=== PATIENT | female | born 1975 | race Two or more races ===

== ENCOUNTER 2017-05-10 14:42 | Emergency (ER) | payer SELFPAY ==
[~2017-05-10] VITALS: Ht 165.1 cm; Wt 111.1 kg
[2017-05-10] MEDS ORDERED: SODIUM CHLORIDE 0.9% 1,000 ML IV ONE (14:57)
[2017-05-10] MEDS ORDERED: HYDROcodone-ACET 7.5/325MG TAB PO ONE (15:15)
[2017-05-10 15:21] LABS: Basophils # (auto) 0.1 uL; Basophils % (auto) 0.8 % (0.0-2.0); CONDITION Y; Eosinophils # (auto) 0.2 uL; Eosinophils % (auto) 2.9 % (0.0-7.0); Hematocrit 44.6 % (36.0-46.0); Hemoglobin 15.2 g/dL (12.2-16.2); Lymphocytes # (auto) 2.2 uL; Lymphocytes % (auto) 27.7 % (10.0-50.0); Mean Corpuscular Hemoglobin 29.9 pg (28.0-32.0); Mean Corpuscular Hgb Conc. 34.1 g/dL (32.0-36.0); Mean Corpuscular Volume 87.7 fL (80.0-100.0); Mean Platelet Volume 7.9 fL (7.4-10.4); Monocytes # (auto) 0.5 uL; Monocytes % (auto) 6.3 % (0.0-12.0); Neutrophils # (auto) 4.9 uL; Neutrophils % (auto) 62.3 % (37.0-80.0); Platelet Count (auto) 333 10^3/uL (140-450); Red Cell Distribution Width 13.4 % (11.6-16.0); White Blood Cell 7.8 10^3/uL (4.4-10.8)
[2017-05-10 15:45] LABS: Albumin 3.5 g/dL (3.4-5.0); Alkaline Phosphatase 145 U/L (45-117); Amylase 83 U/L (25-115); Anion Gap 9 (5-15); Aspartate Aminotransferase 32 U/L (15-37); Bilirubin, Total 0.5 mg/dL (0.2-1.0); Blood Urea Nitrogen 13 mg/dL (7-18); Calcium 8.7 mg/dL (8.5-10.1); Carbon Dioxide 27 mmol/L (21-32); Chloride 99 mmol/L (98-107); GFR African American 101 mL/min; GFR Non-African American 83 mL/min; Glucose 217 mg/dL (74-106); Potassium 4.3 mmol/L (3.5-5.1); Sodium 135 mmol/L (136-145); Total Protein 8.4 g/dL (6.4-8.2)
[2017-05-10 17:45] VITALS: BP 104/49
== END 2017-05-10 17:57 | disposition home or self-care (01) ==
LOC: ER 14:46
DX: R10.9 Unspecified abdominal pain (principal); M79.1 Myalgia; E11.9 Type 2 diabetes mellitus without complications; Z98.51 Tubal ligation status; W01.0XXA Fall on same level from slipping, tripping and stumbling without subsequent striking against object, initial encounter; Y93.89 Activity, other specified; Y99.8 Other external cause status; Y92.89 Other specified places as the place of occurrence of the external cause
CPT/HCPCS: 36415; 71101; 80053; 82150; 83690; 84484; 85025; 96360; 96361; 99285; J7030

== ENCOUNTER 2024-10-27 12:09 | Emergency (ER) | payer MEDICAID, OTHER ==
[~2024-10-27] VITALS: Ht 165.1 cm; Wt 93.5 kg
[2024-10-27 13:09] VITALS: BP 126/82; PULSE 109; RESP 18; TEMP 98.5
--- NOTE | 2024-10-27 13:22 | DVH ---
CHEST RADIOGRAPH Indication: COUGH Technique: Frontal and lateral view of the chest was obtained Comparison: None FINDINGS: Lines and Tubes: None Lungs: Diffuse increased interstitial prominence Pleura: No effusion. No pneumothorax. Cardiomediastinal contours: Unremarkable Bones: Unremarkable IMPRESSION: Pulmonary vascular congestion versus viral pneumonitis.
--- NOTE | 2024-10-27 13:34 | ED.PDOC ---
SOB-HPI HPI Comments A 49 YEAR OLD FEMALE PRESENTS TO THE ED WITH COMPLAINT OF COUGH X5DAYS WITH INTERMITTENT FEVER, SOB, AND CHEST TIGHTNESS WHEN COUGHING. PATIENT DENIES CHILLS, ABDOMINAL PAIN, NAUSEA, VOMITING, HEADACHE, OR OTHER COMPLAINTS. NO OTHER SYMPTOMS OR MODIFYING FACTORS AT THIS TIME. PATIENT IS ALERT, ORIENTED X 4, AND HAS STEADY GAIT. NO OTHER SYMPTOMS REPORTED AT THIS TIME OF CARE. Chief Complaint: Cough Time Seen by MD: 13:30 Reviewed notes: Nurses Notes, Medications, Allergies Information Source: Patient Mode of Arrival: Ambulatory Severity: Mild, Moderate Timing: Days Duration: Since onset Context: At Rest PE Risk Factors: None History of: None Modifying Factors: Nothing Associated Signs and Symptoms: Fever, Cough, Nasal Congestion, Anxiety Quality: Tightness Radiation: No Radiation Location: Substernal If cough with SOB: Productive Past Medical History PAST MEDICAL HISTORY: DM Surgical History: BTL BASIN CLEANER History: No Pertinent BASIN CLEANER History Family History Family History: Unknown Social History Smoker: Non-Smoker Alcohol: Denies ETOH Use Drugs: Denies Drug Use Lives In: Home Constitutional: reports: fever; denies: chills, diaphoresis, fatigue, malaise, sweats, weakness, others EENTM: reports: nose congestion; denies: blurred vision, double vision, ear bleeding, ear discharge, ear drainage, ear pain, ear ringing, eye pain, eye redness, hearing loss, mouth pain, mouth swelling, nasal discharge, nose bleeding, nose pain, photophobia, tearing, throat pain, throat swelling, voice changes, others Respiratory: reports: cough, shortness of breath, wheezing; denies: hemoptysis, orthopnea, SOB at rest, SOB with excertion, stridor, others Cardiovascular: denies: chest pain, dizzy spells, diaphoresis, Dyspnea on exertion, edema, irregular heart beat, left arm pain, lightheadedness, palpitations, PND, syncope, others Gastrointestinal: denies: abdomen distended, abdominal pain, blood streaked bowels, constipated, diarrhea, dysphagia, difficulty swallowing, hematemesis, melena, nausea, poor appetite, poor fluid intake, rectal bleeding, rectal pain, vomiting, others Genitourinary: denies: abnormal vagina bleeding, burning, dyspareunia, dysuria, flank pain, frequency, hematuria, incontinence, pain, , vagina discharge, urgency, others Neurological: denies: dizziness, fainting, headache, left sided numbness, left sided weakness, numbness, paresthesia, pre-existing deficit, right sided numbness, right sided weakness, seizure, speech problems, tingling, tremors, weakness, others Musculoskeletal: denies: back pain, gout, joint pain, joint swelling, muscle pain, muscle stiffness, neck pain, others Integumetry: denies: bruises, change in color, change in hair/nails, dryness, laceration, lesions, lumps, rash, wounds, others Allergic/Immunocompromised: denies: Difficulty Healing, Frequent Infections, Hives, Itching, others Hematologic/Lymphatic: denies: anemia, blood clots, easy bleeding, easy bruising, swollen glands, others Endocrine: denies: excessive hunger, excessive sweating, excessive thirst, excessive urination, flushing, intolerance to cold, intolerance to heat, un explained weight gain, unexplained weight loss, others Psychiatric: denies: anxiety, bipolar disorder, depression, hopeless, panic disorder, schizophrenia, sleepless, suicidal, others All Other Systems: Reviewed and Negative Physical Exam General Appearance: No Apparent Distress, Obese HEENT: Normal ENT Inspection, PERRL/EOMI, Pharynx Normal, TMs Normal Neck: Full Range of Motion, Non-Tender, Normal, Normal Inspection Respiratory: Chest Non-Tender, Decreased Breath Sounds, Expiration, No Acc essory Muscle Use, No Respiratory Distress, Rhonchi, Wheezing (MILD ) Cardiovascular: No Edema, No JVD, No Murmur, No Gallop, Normal Peripheral Pulses, Regular Rate/Rhythm Breast Exam: Deferred Gastrointestinal: No Organomegaly, Non Tender, No Pulsatile Mass, Normal Bowel Sounds, Soft Genitalia: Deferred Pelvic: Deferred Rectal: Deferred Extremities: No calf tenderness, Normal capillary refill, Normal inspection, Normal range of motion, Non-tender, No pedal edema Musculoskeletal : Apperance: Normal Neurologic: Alert, pallet rectifier II-XII nml as Tested, No Motor Deficits, Normal Affect, Normal Mood, No Sensory Deficits Cerebellar Function: Normal Reflexes: Normal Skin: Dry, Normal Color, Warm Peripheral Pulses: 2+ carotid (R), 2+ carotid (L) Lymphatic: No Adenopathy Was a procedure done? Was a procedure done?: No Differential Dx Differential Diagnosis: Bronchitis, Pneumonia, Sinusitis, Allergic Rhinitis, Pharyngitis, URI X-Ray, Labs, Meds, VS Vital Signs Date Time Temp Pulse Resp B/P (MAP) Pulse Ox O2 Delivery O2 Flow Rate FiO2 10/27/24 13:54 94 Room Air* 0 21 10/27/24 13:09 98.5 109 18 126/82 (97) 96 98.5 10/27/24 12:47 98.5 109 18 126/82 (97) 96 10/27/24 12:47 18 96 Room Air 0 Current Medications Medications (Trade) Dose Ordered Sig/Tori Route Start Time Stop Time Status Last Admin Albuterol (Ventolin Medneb) 2.5 mg ONCE ONCE NEB 10/27/24 13:45 10/27/24 13:46 DC 10/27/24 13:54 Ipratropium [place] (Atrovent Medneb) 0.5 mg ONCE ONCE NEB 10/27/24 13:45 10/27/24 13:46 DC 10/27/24 13:54 Methylprednisolone Sodium Succinate (Solu Medrol) 125 mg ONCE ONCE IM 10/27/24 13:45 10/27/24 13:46 DC 10/27/24 13:50 PATIENT: TRISTIAN MCDANIELT: [id number]: [id number] : 1975 LOC: ER ROOM / BED: / AGE / SEX: 49 / F ADM STATUS: REG ER SERVICE 1215 ORDERING PHYSICIAN: BETTINA MAURO PROCEDURE(s): CXR2 - CHEST TWO VIEWS ROUTINE REASON: COUGH ORDER NUMBER(s): [id number], ACCESSION NUMBER(s): [id number] CHEST RADIOGRAPH Indication: COUGH Technique: Frontal and lateral view of the chest was obtained Comparison: None FINDINGS: Lines and Tubes: None Lungs: Diffuse increased interstitial prominence Pleura: No effusion. No pneumothorax. Cardiomediastinal contours: Unremarkable Bones: Unremarkable IMPRESSION: Pulmonary vascular congestion versus viral pneumonitis. ATED BY: ORLANDO PRITCHETT MD DICTATED DATE/TIME: 10/27/24 1320 SIGNED BY: ORLANDO PRITCHETT MD SIGNED DATE/TIME: 10/27/24 1320 CC: X-Ray, Labs, Meds, VS Comment COURSE: EXTERNAL MEDICAL RECORDS REVIEWED: [NONE] INDEPENDENT HISTORIANS: [NONE] SOCIAL DETERMINANTS OF HEALTH: [NONE] LABS ORDERED: NONE REVIEWED AND INTERPRETED RESULTS: NONE IMAGING ORDERED: CXR CXR FINDINGS: Pulmonary vascular congestion versus viral pneumonitis TREATMENTS ORDERED: METHYLPREDNISOLONE 125MG IM, IPRATROPIUM 0.5MG MEDNEB, ALBUTEROL 2.5MG MEDNEB PROCEDURES PERFORMED: NONE CRITICAL CARE TIME: NONE I HAVE DISCUSSED THE PATIENT WITH THE ATTENDING PHYSICIAN DR. BRYANT AND HE AGREES WITH THE PATIENT'S PLAN OF CARE AND DISPOSITION. GIVEN THE HISTORY AND PRESENT ILLNESS OF THE PATIENT, AFTER REVIEWING LABS, IMAGING, AND COURSE OF TREATMENT ADMINISTERED DURING THEIR ED VISIT, THERE IS LOW SUSPICION FOR RED FLAG FINDINGS. BASED ON HISTORY OF PRESENT ILLNESS, AND PHYSICAL EXAM, PATIENT WILL BE DISC HARGED HOME. DISCUSSED PLAN FOR DISCHARGE HOME WITH RX. MEDICATION WARNINGS GIVEN. SHARED DECISION MAKING: DISCUSSED WITH PATIENT THAT THEIR WORKUP WAS NORMAL. PATIENT INSTRUCTED TO FOLLOW UP WITH PRIMARY CARE PROVIDER IN 1-2 DAYS FOR RE- EVALUATION OF SYMPTOMS. PATIENT VERBALIZES UNDERSTANDING TO RETURN TO ED FOR NEW OR WORSENING SYMPTOMS OR IF FOLLOW UP WITH PCP CANNOT BE OBTAINED. PATIENT FEELS COMFORTABLE GOING HOME AT THIS TIME. ALL QUESTIONS ADDRESSED AT TIME OF DISCHARGE. Time of 1ST Reevaluation: 13:45 Reevaluation 1ST: Improved Patient Education/Counseling: Diagnosis, Treatment, Prognosis, Need For Follow Up Family Education/Counseling: Diagnosis, Treatment, No Family Present Medical Screening: No EMC Exist At This Time Departure 1 Departure Time of Disposition: 14:30 Impression: Primary Impression: Acute bronchitis with bronchospasm Disposition: HOME / SELF CARE / HOMELESS Condition: Stable Additional Instructions: FOLLOW-UP WITH PCP IN 1 TO 2 DAYS. TAKE MEDICATIONS PRESCRIBED. RETURN TO ED FOR ANY NEW OR WORSENING SYMPTOMS. e-Prescriptions Promethazine-Dm (Promethazine Dm 6.25-15 mg/5Ml) 1 Lian Lian 5 ML PO TID, #180 ML Prov: BETTINA MAURO 10/27/24 Albuterol Sulfate (Albuterol Sulfate Hfa) 108 Mcg/Act Aer 108 MCG IN TID, #120 AER Prov: BETTINA MAURO 10/27/24 Azithromycin (Azithromycin) 500 Mg Tab 1 TAB PO DAILY, #5 TAB Prov: BETTINA MAURO 10/27/24 Discharged With: Self Critical Care Note Critical Care Time?: No Stability Stability form required: No Heart Score Heart Score: Heart Score Response (Comments) Value History N/A 0 EKG N/A 0 Age N/A 0 Risk Factors N/A 0 Troponin N/A 0 Total 0 I personally scribed for BETTINA MAURO ([email or web address]) on 10/27/24 at 13:34. Electronically submitted by Bhakti Cotton ([employer]). I personally scribed for BETTINA MAURO ([email or web address]) on 10/27/24 at 13:40. Electronically submitted by Bhakti Cotton ([employer]). BETTINA MAURO Oct 27, 2024 13:34
[2024-10-27] MEDS: methylPREDNISolone SOD SUCC 125 MG/2 ML VL IM ONE (13:50)
[2024-10-27 13:54] VITALS: O2SAT 94
[2024-10-27] MEDS: ALBUTEROL SULF 2.5 MG/0.5ML(0.5%) NEB SOLN NEB ONE (13:54)
[2024-10-27] MEDS: IPRATROPIUM BROM 0.5 MG/2.5ML INH SOL NEB ONE (13:54)
[2024-10-27] MEDS ORDERED: PROM1SOL4 PO (14:21)
[2024-10-27] MEDS ORDERED: AZIT500T66 PO (14:21)
[2024-10-27] MEDS ORDERED: ALBU108A5 IN (14:21)
== END 2024-10-27 14:35 | disposition home or self-care (01) ==
LOC: ER 12:09
DX: J20.9 Acute bronchitis, unspecified (principal); E11.9 Type 2 diabetes mellitus without complications; Z98.51 Tubal ligation status
CPT/HCPCS: 71046; 94640; 96372; 99283; J2919

== ENCOUNTER 2024-10-31 18:28 | Inpatient (IN) | payer MEDICAID ==
[~2024-10-31] VITALS: Ht 162.6 cm; Wt 90.0 kg
[~2024-10-31 18:28] MED LIST: ALBU108A5 IN; AZIT500T66 PO; PROM1SOL4 PO
[2024-10-31 19:35] LABS: Basophils # (auto) 0 10 ^3/uL (0-0.2); Eosinophils # (auto) 0.1 10 ^3/uL (0-0.8); Hemoglobin 12.9 g/dL (12.2-16.2); Lymphocytes # (auto) 1.4 10 ^3/uL (0.4-5.4)
--- NOTE | 2024-10-31 19:36 | DVH ---
EXAM: XY CHEST TWO VIEWS ROUTINE CLINICAL HISTORY: cough TECHNIQUE: Frontal and lateral views of the chest WID: COMPARISON: XY CHEST TWO VIEWS ROUTINE on DOS: 10/27/24 FINDINGS: Lines and tubes: None Chest: The heart size and pulmonary vasculature is within normal limits. No pleural effusion, pneumothorax, or consolidation. The osseous structures are grossly intact. IMPRESSION: No acute cardiopulmonary abnormality.
[2024-10-31 19:37] LABS: Basophils % (auto) 0.8 % (0.0-2.0); Eosinophils % (auto) 2.5 % (0.0-7.0); Hematocrit 41.8 % (36.0-46.0); Lymphocytes % (auto) 24.6 % (10.0-50.0); Mean Corpuscular Hemoglobin 25.2 pg (28.0-32.0); Mean Corpuscular Hgb Conc. 30.8 g/dL (32.0-36.0); Mean Corpuscular Volume 81.8 fL (80.0-100.0); Monocytes # (auto) 0.5 10 ^3/uL (0-1.3); Monocytes % (auto) 8.1 % (0.0-12.0); Neutrophils # (auto) 3.6 10 ^3/uL (1.6-8.6); Platelet Count (auto) 388 10^3/uL (140-450); Red Blood Cells 5.11 10^6/uL (4.0-5.20); Red Cell Distribution Width 14.9 % (11.8-14.3); White Blood Cell 5.7 10^3/uL (4.4-10.8)
[2024-10-31] MEDS: IPRATROPIUM BROM 0.5 MG/2.5ML INH SOL NEB ONE (19:43)
[2024-10-31] MEDS: ALBUTEROL SULF 2.5 MG/0.5ML(0.5%) NEB SOLN NEB ONE (19:43)
[2024-10-31 19:44] LABS: Potassium 4.1 mmol/L (3.5-5.1)
[2024-10-31 19:45] LABS: Anion Gap 9 (5-15); Carbon Dioxide 23 mmol/L (20-31)
[2024-10-31 19:50] LABS: BUN/Creatinine Ratio 12.9 (10.0-20.0); Blood Urea Nitrogen 11 mg/dL (9-23)
[2024-10-31 19:54] LABS: Calcium 10.6 mg/dL (8.7-10.4); Chloride 95 mmol/L (98-107); Sodium 127 mmol/L (136-145)
[2024-10-31 19:56] LABS: Glucose 634 mg/dL (74-106)
--- NOTE | 2024-10-31 20:10 | ED.PDOC ---
History of Present Illness HPI Comments 49 y/o F, with a Hx of chronic leg edema, DM, HLD, and HTN, presents with c/o nonproductive cough for 5x days, today. Patient is a poor historian and endorses on returning to the ED after being seen and discharge on Z-pac and inhaler medication placement at [facility] ED on 10/27/24, due to cough still persisting. She comments on being compliant with taking medications as directed and has had no relief or improvement since in addition to her son being sick with similar symptoms, currently. Patient reports no history of asthma or COPD, recent sick contact, travel, or other relevant or pertinent information. She denies having any chest pain, shortness of breath, phlegm production, fever, chills, or other associated symptoms or modifiers at this time. Chief Complaint: Cough Time Seen by MD: 19:00 Reviewed Notes: Nurses Notes, Medications, Allergies Allergies: Coded Allergies: Ibuprofen (Verified Allergy, Severe, anaphylaxis, 10/31/24) Home Meds Active Scripts Promethazine-Dm (Promethazine Dm 6.25-15 mg/5Ml) 1 Lian Lian, 5 ML PO TID, #180 ML Prov:BETTINA MAURO 10/27/24 Albuterol Sulfate (Albuterol Sulfate Hfa) 108 Mcg/Act Aer, 108 MCG IN TID, #120 AER Prov:BETTINA MAURO 10/27/24 Azithromycin (Azithromycin) 500 Mg Tab, 1 TAB PO DAILY, #5 TAB Prov:BETTINA MAURO 10/27/24 Information Source: Patient Mode of Arrival: Ambulatory Severity: Moderate Timing: Days Duration: Since onset Prehospital treatment: Other (see HPI) Past Medical History PAST MEDICAL HISTORY: Anxiety, DM, High Lipids, HTN Past Medical History (Other): chronic leg edema Surgical History: BTL COCKTAIL WAITRESS History: No Pertinent COCKTAIL WAITRESS History Family History Family History: Unknown Social History Smoker: Non-Smoker Alcohol: Denies ETOH Use Drugs: Denies Drug Use Lives In: Home Respiratory: reports: cough All Other Systems: Reviewed and Negative (negative unless otherwise stated above or in HPI) Physical Exam General Appearance: No Apparent Distress, Obese HEENT: Normal ENT Inspection, Pharynx Normal, TMs Normal, Other (nasal congestion, otherwise normal ENT exam ) Neck: Full Range of Motion, Non-Tender, Normal, Normal Inspection Respiratory: Chest Non-Tender, Lungs Clear, No Accessory Muscle Use, No Respiratory Distress, Normal Breath Sounds Cardiovascular: No Edema, No JVD, No Murmur, No Gallop, Normal Peripheral Pulses, Regular Rate/Rhythm Breast Exam: Deferred Gastrointestinal: No Organomegaly, Non Tender, No Pulsatile Mass, Normal Bowel Sounds, Soft Genitalia: Deferred Pelvic: Deferred Rectal: Deferred Extremities: No calf tenderness, Normal capillary refill, Normal inspection, Normal range of motion, Non-tender, No pedal edema Musculoskeletal : Apperance: Normal Neurologic: Alert, panel maker II-XII nml as Tested, No Motor Deficits, Normal Affect, Normal Mood, No Sensory Deficits Cerebellar Function: Normal Reflexes: Normal Skin: Dry, Normal Color, Warm Lymphatic: No Adenopathy Was a procedure done? Was a procedure done?: No Differential Dx Considerations may include: viral syndrome, URI, PNA, covid19, bronchitis, influenza X-Ray, Labs, Meds, VS Vital Signs Date Time Temp Pulse Resp B/P (MAP) Pulse Ox O2 Delivery O2 Flow Rate FiO2 11/01/24 00:31 118 11/01/24 00:00 120 20 117/79 (92) 95 10/31/24 23:35 122 10/31/24 22:00 125 20 104/75 (85) 95 10/31/24 21:30 132 10/31/24 20:36 145 10/31/24 20:30 130 10/31/24 20:15 149 17 97 Room Air* 0 21 10/31/24 20:15 98.9 149 17 117/51 (73) 97 98.9 10/31/24 19:43 18 99 Room Air* 0 21 10/31/24 19:09 16 97 Room Air 0 10/31/24 19:09 98.3 74 16 128/75 (92) 97 Lab Test 10/31/24 23:58 10/31/24 22:13 10/31/24 22:06 10/31/24 21:08 Range/Units Troponin I High Sensitivity 6289 *H 6798 *H 6853 *H </=34 ng/L Influenza Type A Antigen Negative Negative Influenza Type B Antigen Negative Negative SARS-CoV-2 Antigen (Rapid) Negative NEGATIVE Test 10/31/24 19:13 Range/Units White Blood Count 5.7 4.4-10.8 10^3/uL Red Blood Count 5.11 4.0-5.20 10^6/uL Hemoglobin 12.9 12.2-16.2 g/dL Hematocrit 41.8 36.0-46.0 % Mean Corpuscular Volume 81.8 80.0-100.0 fL Mean Corpuscular Hemoglobin 25.2 L 28.0-32.0 pg Mean Corpuscular Hemoglobin Concent 30.8 L 32.0-36.0 g/dL Red Cell Distribution Width 14.9 H 11.8-14.3 % Platelet Count 388 140-450 10^3/uL Mean Platelet Volume 7.8 6.9-10.8 fL Neutrophils (%) (Auto) 64.0 37.0-80.0 % Lymphocytes (%) (Auto) 24.6 10.0-50.0 % Monocytes (%) (Auto) 8.1 0.0-12.0 % Eosinophils (%) (Auto) 2.5 0.0-7.0 % Basophils (%) (Auto) 0.8 0.0-2.0 % Neutrophils # (Auto) 3.6 1.6-8.6 10 ^3/uL Lymphocytes # (Auto) 1.4 0.4-5.4 10 ^3/uL Monocytes # (Auto) 0.5 0-1.3 10 ^3/uL Eosinophils # (Auto) 0.1 0-0.8 10 ^3/uL Basophils # (Auto) 0 0-0.2 10 ^3/uL Nucleated Red Blood Cells 0.0 % Prothrombin Time 10.9 9.3-11.8 sec Prothrombin Time INR 1.03 0.9-1.15 Activated Partial Thromboplast Time 26.3 24.5-34.5 SEC Sodium Level 127 L 136-145 mmol/L Potassium Level 4.1 3.5-5.1 mmol/L Chloride Level 95 L 98-107 mmol/L Carbon Dioxide Level 23 20-31 mmol/L Anion Gap 9 5-15 Blood Urea Nitrogen 11 9-23 mg/dL Creatinine 0.85 0.550-1.02 mg/dL Glomerular Filtration Rate Calc 84 >90 mL/min BUN/Creatinine Ratio 12.9 10.0-20.0 Serum Glucose 634 *H 74-106 mg/dL Calcium Level 10.6 H 8.7-10.4 mg/dL Troponin I High Sensitivity 7151 *H </=34 ng/L B-Type Natriuretic Peptide 949.06 0-100 pg/mL Current Medications Medications (Trade) Dose Ordered Sig/Tori Route Start Time Stop Time Status Last Admin Albuterol (Ventolin Medneb) 5 mg ONCE ONCE NEB 10/31/24 19:15 10/31/24 19:16 DC 10/31/24 19:43 Ipratropium [place] (Atrovent Medneb) 0.5 mg ONCE ONCE NEB 10/31/24 19:15 10/31/24 19:16 DC 10/31/24 19:43 Acetaminophen (Tylenol Tablet) 650 mg ONCE ONCE PO 10/31/24 19:15 10/31/24 19:16 DC 10/31/24 20:41 Aspirin 324 mg ONCE ONCE PO 10/31/24 20:15 10/31/24 20:44 DC 10/31/24 20:49 Insulin Human Regular (InsuLIN R) 10 units ONCE ONCE IV 10/31/24 20:15 10/31/24 20:42 DC 10/31/24 20:46 Sodium Chloride 1,000 ml @ 1,000 mls/hr Q1H ONCE IV 10/31/24 22:00 10/31/24 22:59 DC 10/31/24 23:28 Heparin Sodium (Porcine) 4,000 units ONCE ONCE IV 10/31/24 22:00 10/31/24 23:10 DC 10/31/24 23:24 Heparin Sodium/ Dextrose 250 ml @ 10 mls/hr Q24H IV 10/31/24 22:00 10/31/24 23:25 [place] [id number] Ph: [phone] DIAGNOSTIC IMAGING Diagnostic Imaging Report : [id number] Signed PATIENT: BETHANY MCDANIEL ACCT: [id number] UNIT: [id number] : 1975 LOC: ER ROOM / BED: / AGE / SEX: 49 / F ADM STATUS: REG ER SERVICE 190 ORDERING PHYSICIAN: TWILA RUSSO MD PROCEDURE(s): CXR2 - CHEST TWO VIEWS ROUTINE REASON: cough ORDER NUMBER(s): [id number], ACCESSION NUMBER(s): [id number] EXAM: XY CHEST TWO VIEWS ROUTINE CLINICAL HISTORY: cough TECHNIQUE: Frontal and lateral views of the chest WID: COMPARISON: XY CHEST TWO VIEWS ROUTINE on DOS: 10/27/24 FINDINGS: Lines and tubes: None Chest: The heart size and pulmonary vasculature is within normal limits. No pleural effusion, pneumothorax, or consolidation. The osseous structures are grossly intact. IMPRESSION: No acute cardiopulmonary abnormality. ATED BY: BEBE CRUM MD DICTATED DATE/TIME: 10/31/241932 SIGNED BY: BEBE CRUM MD SIGNED DATE/TIME: 10/31/241932 CC: Time of 1ST Reevaluation: 19:30 Reevaluation 1ST: Unchanged Patient Education/Counseling: Diagnosis, Treatment Family Education/Counseling: No Family Present Additional Information I reviewed the following notes from patient's past medical encounters: ED physician note on 10/27/24 The following tests were ordered, and results were reviewed by me: troponin, CBC, BMP, BNP, CXR, rapid influenza A&B, covid19 I reviewed and agreed with the following test results read by other providers: CXR I discussed treatment and results with medical personnel Departure 1 Departure Time of Disposition: 01:13 (Patient presented with chest pain that was conc erning for possible STEMI, ACS, PE, Pneumonia, Muscle Strain, COPD, Dissection. Data: 1. I ordered and reviewed the result of at least 3 labs including a CBC, BMP, and Troponin. 2. I independently interpreted the following tests: EKG which shows cardiac arrhythmia and Chest X-ray which shows benign chest.Risk:This patient has a high risk of morbidity due to further diagnostic testing or treatment and may suffer from an acute cardiac or respiratory disorder. Workup reveals NSTEMI and patient should be admitted for further workup and possible expert consultation. ) Impression: Primary Impression: NSTEMI (non-ST elevated myocardial infarction) Additional Impressions: Uncontrolled diabetes mellitus Qualified Codes: E11.65 - Type 2 diabetes mellitus with hyperglycemia Generalized weakness Disposition: ADMITTED INPATIENT Admit to: Tele Condition: Guarded Critical Care Note Critical Care Time?: Yes Critical care comment: Acute chest pain Authorized and Performed by: Twila Russo MD Total critical care time: Approximately 38 minutes Due to a high probability of clinically significant, life threatening deterioration, the patient required my highest level of preparedness to intervene emergently and I personally spent this critical care time directly and personally managing the patient. This critical care time included obtaining a history; examining the patient; pulse oximetry; ordering and review of studies; arranging urgent treatment with development of a management plan; evaluation of patient's response to treatment; frequent reassessment; and, discussions with other providers. This critical care time was performed to assess and manage the high probability of imminent, life-threatening deterioration that could result in multi-organ failure. It was exclusive of separately billable procedures and treating other patients and teaching time. Please see my other sections and the rest of the note for further information on patient assessment and treatment. Stability Stability form required: No Heart Score Heart Score: Heart Score Response (Comments) Value History Moderate Suspicious 1 EKG Repolarization Disturb 1 Age 45-64 1 Risk Factors >3 or Hx ASHD 2 Troponin >3 x's Normal limit 2 Total 7 I personally scribed for TWILA RUSSO MD ([email or web address]) on 10/31/24 at 20:10. Electronically submitted by Mikhail Bustos ([email or web address]). I personally scribed for TWILA RUSSO MD ([email or web address]) on 10/31/24 at 21:44. Electronically submitted by Mikhail Bustos ([email or web address]). TWILA RUSSO MD Oct 31, 2024 20:10
[2024-10-31 20:15] VITALS: PULSE 149; RESP 17; O2SAT 97
[2024-10-31] MEDS: ACETAMINOPHEN 325 MG TAB PO ONE (20:41)
[2024-10-31] MEDS: InsuLIN REG 1unit/0.01ml Soln (100units/ml) IV ONE (20:46)
[2024-10-31] MEDS: ASPirin 81 mg TAB PO ONE (20:49)
[2024-10-31 22:47] LABS: INR 1.03 (0.9-1.15); Partial Thromboplastin Time 26.3 SEC (24.5-34.5); Prothrombin Time 10.9 sec (9.3-11.8)
[2024-10-31] MEDS: HEPARIN SODIUM (PORCINE) 5000 UNITS/ML 1ML VIAL IV ONE (23:24)
[2024-10-31] MEDS: HEPARIN DRIP/D5W 100UNITS/ML 250 ML IV SCH (23:25)
[2024-10-31] MEDS: SODIUM CHLORIDE 0.9% 1,000 ML IV ONE (23:28)
[2024-10-31 23:33] LABS: COVID19 ANTIGEN SOFIA FIA NEGATIVE (NEGATIVE); Rapid Influenza A Negative (Negative); Rapid Influenza B Negative (Negative)
[2024-11-01] MEDS ORDERED: DEXTROSE (50%) 50ML SYRG IV PRN (01:30)
[2024-11-01] MEDS ORDERED: NITROGLYCERIN 0.4 MG SL TAB SL PRN (01:30)
--- NOTE | 2024-11-01 01:37 | DVHHP2 ---
History of Present Illness Reason for Visit: Shortness for breath History of Present Illness 49-year-old female presents for evaluation of shortness for breath. Patient reports initially her symptoms starting five days ago with a nonproductive cough. She developed shortly after shortness for breath. She states over the past two days she has been having substernal chest pressure in mild bilateral pedal edema. Denies fever or chills. No other acute complaints reported . Past Medical History Hypertension, dyslipidemia, diabetes mellitus, questionable CHF Past Surgical History Bilateral tubal ligation Family History Noncontributory Smoke: No ALCOHOL: none Drugs: None Lives: with Family Review of Systems Review of Systems Review of systems are currently negative otherwise addressed HPI. Allergies: Coded Allergies: Ibuprofen (Verified Allergy, Severe, anaphylaxis, 10/31/24) Medications Current Medications Medications Dose Ordered Sig/Troi Route Start Time Stop Time Status Last Admin Dose Admin Heparin Sodium/ Dextrose 250 ml @ 10 mls/hr Q24H IV 10/31/24 22:00 10/31/24 23:25 10 MLS/HR Ondansetron HCl 4 mg Q4HP PRN IV 11/01/24 01:30 UNV Nitroglycerin 0.4 mg Q5MINP PRN SL 11/01/24 01:30 UNV Morphine Sulfate 2 mg Q30M PRN IV 11/01/24 01:30 UNV Diagnostic Test (Pha) 1 strip IQ4HR 11/01/24 04:00 UNV Insulin Human Regular IQ4HR SC 11/01/24 04:00 UNV Dextrose 50 ml UD PRN IV 11/01/24 01:30 UNV Exam Vital Signs Vital Signs Date Time Temp Pulse Resp B/P (MAP) Pulse Ox O2 Delivery O2 Flow Rate FiO2 11/01/24 01:26 98.9 122 20 111/72 (85) 96 98.9 10/31/24 20:15 Room Air* 0 21 Exam Gen: 49-year-old female in mild distress, obese Skin: Warm, dry, normal color and texture, no rash. HEENT: Normocephalic atraumatic, mucous membranes moist and pink. Neck: Cervical and supraclavicular nodes normal without enlargement, trachea is midline, thyroid gland is normal without masses. Pulmonary: Clear to auscultation and percussion bilaterally. Cardiac: Regular rate and rhythm. No murmur Abdomen: Soft, nontender, nondistended, bowel sounds present all 4 quadrants, no guarding, no rigidity, no organomegaly. Extremities: No cyanosis, clubbing, no edema Neuro: Cranial nerves II through XII grossly intact, normal affect and speech, no focal motor deficits. Labs/Xrays ORDERING PHYSICIAN: TWILA RUSSO MD PROCEDURE(s): CXR2 - CHEST TWO VIEWS ROUTINE REASON: cough ORDER NUMBER(s): [id number], ACCESSION NUMBER(s): [id number] EXAM: XY CHEST TWO VIEWS ROUTINE CLINICAL HISTORY: cough TECHNIQUE: Frontal and lateral views of the chest WID: COMPARISON: XY CHEST TWO VIEWS ROUTINE on DOS: 10/27/24 FINDINGS: Lines and tubes: None Chest: The heart size and pulmonary vasculature is within normal limits. No pleural effusion, pneumothorax, or consolidation. The osseous structures are grossly intact. IMPRESSION: No acute cardiopulmonary abnormality. Labs Test 11/01/24 01:09 10/31/24 23:58 10/31/24 22:13 10/31/24 19:13 Range/Units POC Glucose 348 H 70-106 mg/dl Troponin I High Sensitivity 6289 *H </=34 ng/L Influenza Type A Antigen Negative Negative Influenza Type B Antigen Negative Negative SARS-CoV-2 Antigen (Rapid) Negative NEGATIVE White Blood Count 5.7 4.4-10.8 10^3/uL Red Blood Count 5.11 4.0-5.20 10^6/uL Hemoglobin 12.9 12.2-16.2 g/dL Hematocrit 41.8 36.0-46.0 % Mean Corpuscular Volume 81.8 80.0-100.0 fL Mean Corpuscular Hemoglobin 25.2 L 28.0-32.0 pg Mean Corpuscular Hemoglobin Concent 30.8 L 32.0-36.0 g/dL Red Cell Distribution Width 14.9 H 11.8-14.3 % Platelet Count 388 140-450 10^3/uL Mean Platelet Volume 7.8 6.9-10.8 fL Neutrophils (%) (Auto) 64.0 37.0-80.0 % Lymphocytes (%) (Auto) 24.6 10.0-50.0 % Monocytes (%) (Auto) 8.1 0.0-12.0 % Eosinophils (%) (Auto) 2.5 0.0-7.0 % Basophils (%) (Auto) 0.8 0.0-2.0 % Neutrophils # (Auto) 3.6 1.6-8.6 10 ^3/uL Lymphocytes # (Auto) 1.4 0.4-5.4 10 ^3/uL Monocytes # (Auto) 0.5 0-1.3 10 ^3/uL Eosinophils # (Auto) 0.1 0-0.8 10 ^3/uL Basophils # (Auto) 0 0-0.2 10 ^3/uL Nucleated Red Blood Cells 0.0 % Prothrombin Time 10.9 9.3-11.8 sec Prothrombin Time INR 1.03 0.9-1.15 Activated Partial Thromboplast Time 26.3 24.5-34.5 SEC Sodium Level 127 L 136-145 mmol/L Potassium Level 4.1 3.5-5.1 mmol/L Chloride Level 95 L 98-107 mmol/L Carbon Dioxide Level 23 20-31 mmol/L Anion Gap 9 5-15 Blood Urea Nitrogen 11 9-23 mg/dL Creatinine 0.85 0.550-1.02 mg/dL Glomerular Filtration Rate Calc 84 >90 mL/min BUN/Creatinine Ratio 12.9 10.0-20.0 Serum Glucose 634 *H 74-106 mg/dL Calcium Level 10.6 H 8.7-10.4 mg/dL B-Type Natriuretic Peptide 949.06 0-100 pg/mL Assessment/Plan Assessment/Plan Assessment NSTEMI Uncontrolled diabetes mellitus Hypertension ? CHF Obesity Plan Admit the patient to telemetry to the hospitalist ACS protocol NPO Telemetry Continue heparin drip Continue treatment per orders. Plan discussed with: Patient My Orders Orders - XOCHILT SOTUT AGACNP Procedure Category Date Status Time * Cardiology Consult CONS 11/01/24 Transmitted 01:16 Basic Metabolic Panel LAB 11/02/24 Verified 04:00 Admit ADMIT 11/01/24 Transmitted 01:16 Ondansetron Hcl PHA 11/01/24 Logged (Zofran) 01:30 Complete Blood Count LAB 11/02/24 Verified 04:00 Npo (Nothing By DIET 11/01/24 Transmitted Mouth) Diet Breakfast Echo 2d Mode Cardiac US 11/01/24 Logged DOP 01:16 Condition: Fair [facility] 11/01/24 In Process 01:16 Bedrest With Bathroom [facility] 11/01/24 In Process Privileg 01:16 Nitroglycerin [facility] 11/01/24 Logged Sublingual (Ntrostat 01:30 Morphine Sulfate [facility] 11/01/24 Logged Injection 01:30 Notify Of Changes [facility] 11/01/24 In Process From Base 01:16 Teaching Aide For [facility] 11/01/24 In Process 24 Hours 01:16 Emergency Dysrhythmia [facility] 11/01/24 In Process Protocol 01:16 Rhythm Strips Once [facility] 11/01/24 In Process Every Shift 01:16 Oxygen By Nasal RT 11/01/24 Transmitted Cannula 01:16 Glucose Blood [facility] 11/01/24 Logged (Accu-Chek Comfort 04:00 Insulin R (Human) PHA 11/01/24 Logged (Insulin R) 04:00 Dextrose 50% Syringe [facility] 11/01/24 Logged 01:30 Date of Service: Nov 01, 2024 Billing Provider: XOCHILT STOUT Common Visit Codes: [id number] INP/OBS CARE (HIGH) XOCHILT STOUT Nov 01, 2024 01:37
[2024-11-01] MEDS: FUROSEMIDE 20 MG/2 ML VIAL IV ONE (02:15)
[2024-11-01] MEDS: ACCU-CHEK COMFORT CURVE STRIP VI SCH (04:05)
[2024-11-01] MEDS: InsuLIN REG 1unit/0.01ml Soln (100units/ml) SC SCH (04:09)
--- NOTE | 2024-11-01 06:38 | ECG ---
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
--- NOTE | 2024-11-01 06:38 | ECG ---
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
--- NOTE | 2024-11-01 06:40 | ECG ---
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
[2024-11-01 07:08] LABS: INR 1.08 (0.9-1.15); Partial Thromboplastin Time 44.6 SEC (24.5-34.5); Prothrombin Time 11.4 sec (9.3-11.8)
[2024-11-01] MEDS: HEPARIN DRIP/D5W 100UNITS/ML 250 ML IV SCH ×2 (08:30→12:15)
[2024-11-01 08:37] VITALS: PULSE 112; RESP 13; O2SAT 97
[2024-11-01] MEDS: IOHEXOL 350 MG/ML 100ML IJ ONE (08:45)
--- NOTE | 2024-11-01 09:33 | DVH ---
PROCEDURE: CT CT ANGIO CHEST CONTRAST 11/01/2024 08:08 AM INDICATION: SOB rule out PE COMPARISON: None TECHNIQUE: Coverage: Thorax IV contrast: Administered Phases: Arterial Multiplanar 3-D Maximum Intensity Projection images (MIP) reconstructions were created by the technraf pink in the coronal and sagittal planes as part of the CT angiography protocol. Adverse events: None Medication laboratory values were reviewed to verify the patient meets criteria for contrast administ ration. All CT scans at this medical facility are performed using dose modulation techniques as appropriate t o a performed exam including the following: Automated exposure control was utilized; adjustment of th e MA and/or KV according to patient size; and use of iterative reconstruction technique. Radiation dose: CTDIvol 29, 23 mGy, DLP 867 mGy*cm. FINDINGS: Cardiovascular: No evidence of acute or chronic pulmonary emboli identified. Aorta is normal in calib er. The heart is normal in size. Coronary artery calcification noted. Lungs: Moderate bilateral pleural effusions. Scattered ground-glass opacities noted bilaterally. A 4 mm juxtapleural nodule in the right lower lobe noted, axial image 51. No pneumothorax. The airways ar e patent. Thyroid: Unremarkable Esophagus: Unremarkable. Lymphatics: No hilar or mediastinal lymphadenopathy. Bones/soft tissues: No acute abnormality. Upper abdomen: No acute abnormality. Cholelithiasis with no evidence of cholecystitis. Other: None. IMPRESSION: 1. No pulmonary emboli. 2. Moderate bilateral pleural effusions and scattered bilateral pulmonary opacities that may represen t edema or pneumonia. 3. A 4 mm juxtapleural nodule in the right lower lobe. Recommend follow-up by CT scan in 6-12 months .
--- NOTE | 2024-11-01 10:25 | DVH ---
US BiLat Lower DVT HISTORY: Edema COMPARISON: None TECHNIQUE: Duplex Doppler evaluation of the deep venous system of the lower extremity from the common femoral veins, superficial femoral vein, great saphenous vein, deep femoral vein, popliteal vein, an d calf veins, including color Doppler and spectral/pulsed waveform analysis, was performed. FINDINGS: Right: - Common femoral vein: Compressible - Deep femoral vein: Compressible - Femoral vein: Compressible - Popliteal vein: Compressible - Posterior tibial vein: Waveforms present - Other: Nothing Left: - Common femoral vein: Compressible - Deep femoral vein: Compressible - Femoral vein: Compressible - Popliteal vein: Compressible - Posterior tibial vein: Waveforms present - Other: Nothing IMPRESSION: No right or left lower extremity deep venous thrombosis.
--- NOTE | 2024-11-01 11:44 | DVHSR ---
APPROVED REPORT EXAM: Two-dimensional and M-mode echocardiogram with Doppler, color Doppler and Bubble Study. Blood Pressure: 115/82 mmHg INDICATION EF RISK FACTORS Height: 65, Weight: 207 DIMENSIONS LVDd5.4 (3.8-5.7cm)LA (2D)4.3 (1.9-4.0cm)Aortic Root3.4 (2.0-3.7cm) LVDs5.0 (2.5-4.0cm)LA (MM) (1.9-4.0cm)Aortic Cusp Exc1.9 (1.5-2.0cm) EF (%) 15.0 (55-70%)Rt. Atrium3.6 (1.9-4.0cm)Asc. Aorta cm IVSd1.1 (0.7-1.1cm)RV (D) (1.8-2.4cm) PWd1.1 (0.7-1.1cm) Mitral Valve MitralMitral Stenosis E wave1.06m/sMV Mean GR.2mmHg A wavem/sMV Peak GR.32mmHg E/A ratio0.02D MVAcm2 Aortic Valve Aortic ValveAortic Stenosis V10.70m/Rissa Mean GR.2mmHg V21.01m/Rissa Peak GR.4mmHg LVOT Diameter2.3 (1.8-2.4cm)Doppler AVA2.88cm2 Pulmonic Valve V20.87m/s Tricuspid Valve TR Velocity2.76m/s [id number] LEFT VENTRICLE The left ventricle is of normal size. Wall thickness is normal. Ejection fraction is severely decre ased and is estimated at 15-20%. There is severe global hypokinesis. Endocardial definition is subo ptimal. Diastolic function is indeterminate. RIGHT VENTRICLE The right ventricle is of normal size. Systolic function is normal. ATRIA The left atrium is moderately dilated in size. Right atrium is of normal size. Intra-atrial septum appears to be intact. No evidence of shunting based on bubble study. MITRAL VALVE Normal structure and function. There is mild mitral regurgitation. PULMONIC VALVE Likely normal. TRICUSPID VALVE Normal structure and function. There is mild tricuspid regurgitation. PA systolic pressure is estim ated at 35-40 mm Hg. AORTIC VALVE Normal structure and function. GREAT VESSELS Aortic root is of normal size. The proximal ascending aorta isn't visualized. PERICARDIAL EFFUSION No significant effusion. IVC is of normal size. Other Information Technically limited study due to patient moving constantly. Bubble study is at the end of study befo re the measurements. Conclusion Normal left ventricular size with severely decreased systolic function. Ejection fraction is estimated at 15-20%. Severe global hypokinesis. Normal right ventricular size and systolic function. No hemodynamically significant valvular disease. PA systolic pressure is estimated at 35-40 mm Hg. There is no prior study for comparison.
[2024-11-01 11:57] LABS: Urine Bacteria FEW /hpf (None Seen); Urine Blood Negative /uL (Negative); Urine Budding Yeast FEW /hpf (None Seen); Urine Clarity Turbid (Clear); Urine Mucus FEW (None Seen); Urine Protein, UAD TRACE (Negative); Urine Squamous Epithelial Cell FEW /hpf (<5); Urine Urobilinogen Normal (Negative); Urine WBC 74 /HPF (0-5); Urine pH 6.5 (5.0-9.0)
[2024-11-01 12:00] LABS: Urine Color STRAW (Yellow)
--- NOTE | 2024-11-01 12:07 | DVHINCON2 ---
Date of service: Nov 01, 2024 History of Present Illness 49 yo F with hx of meth abuse, chf, htn admitted for sob and found to have nstemi. trop is elevated. pt used meth recently. shes on lasix and BB . her H R is low 130s on admit with PVCs. Past Medical History reviewed Allergies: Coded Allergies: Ibuprofen (Verified Allergy, Severe, anaphylaxis, 10/31/24) Home Meds Active Scripts Promethazine-Dm (Promethazine Dm 6.25-15 mg/5Ml) 1 Lian Lian, 5 ML PO TID, #180 ML Prov:BETTINA MAURO 10/27/24 Albuterol Sulfate (Albuterol Sulfate Hfa) 108 Mcg/Act Aer, 108 MCG IN TID, #120 AER Prov:BETTINA MAURO 10/27/24 Azithromycin (Azithromycin) 500 Mg Tab, 1 TAB PO DAILY, #5 TAB Prov:BETTINA MAURO 10/27/24 Current Medications Current Medications Medications (Trade) Dose Ordered Sig/Tori Route PRN Reason Start Time Stop Time Status Last Admin Heparin Sodium/ Dextrose 250 ml @ 10 mls/hr Q24H IV 10/31/24 22:00 11/01/24 08:27 DC 10/31/24 23:25 Ondansetron HCl (Zofran) 4 mg Q4HP PRN IV NAUSEA / VOMITING 11/01/24 01:30 Nitroglycerin (Ntrostat Sublingual) 0.4 mg Q5MINP PRN SL FOR CHEST PAIN 11/01/24 01:30 Morphine Sulfate 2 mg Q30M PRN IV FOR CHEST PAIN 11/01/24 01:30 Diagnostic Test (Pha) (Accu-Chek Comfort Curve T) 1 strip IQ4HR 11/01/24 04:00 11/01/24 08:00 Insulin Human Regular (InsuLIN R) IQ4HR SC 11/01/24 04:00 11/01/24 08:44 Dextrose 50 ml UD PRN IV Blood Sugar LESS THAN 60 11/01/24 01:30 Heparin Sodium/ Dextrose 250 ml @ 12 mls/hr [id number] IV 11/01/24 08:30 11/01/24 08:30 Review of Systems 10 pt ros otherwise negative Vital Signs Vital Signs Date Time Temp Pulse Resp B/P (MAP) Pulse Ox O2 Delivery O2 Flow Rate FiO2 11/01/24 10:00 98.6 116 15 105/75 (85) 98 98.6 11/01/24 08:37 Nasal Cannula* 2 28 Physical Exam nad s1 s2 tachycardic diffuse rhonchi abd soft nt/nd +1 leg edema Labs/Diagnostic Data Labs Test 11/01/24 11:44 11/01/24 11:15 11/01/24 05:25 10/31/24 22:13 Range/Units POC Glucose 186 H 70-106 mg/dl Urine Color Straw Yellow Urine Clarity Turbid H Clear Urine pH 6.5 5.0-9.0 Urine Specific [place] 1.030 1.001-1.035 Urine Protein Trace H Negative Urine Ketones Trace Negative Urine Blood Negative Negative /uL Urine Nitrite Negative Negative Urine Bilirubin Negative Negative Urine Urobilinogen Normal Negative mg/dL Urine Leukocyte Esterase 3+ Negative /uL Urine RBC 4 0 - 4 /hpf Urine Microscopic WBC 74 H 0-5 /HPF Urine Squamous Epithelial Cells Few <5 /hpf Urine Bacteria Few H None Seen /hpf Urine Mucus Few None Seen Urine Yeast (Budding) Few None Seen /hpf Urine Glucose 2+ H Normal mg/dL Prothrombin Time 11.4 9.3-11.8 sec Prothrombin Time INR 1.08 0.9-1.15 Activated Partial Thromboplast Time 44.6 H 24.5-34.5 SEC Troponin I High Sensitivity 7104 *H </=34 ng/L Influenza Type A Antigen Negative Negative Influenza Type B Antigen Negative Negative SARS-CoV-2 Antigen (Rapid) Negative NEGATIVE Test 10/31/24 19:13 Range/Units White Blood Count 5.7 4.4-10.8 10^3/uL Red Blood Count 5.11 4.0-5.20 10^6/uL Hemoglobin 12.9 12.2-16.2 g/dL Hematocrit 41.8 36.0-46.0 % Mean Corpuscular Volume 81.8 80.0-100.0 fL Mean Corpuscular Hemoglobin 25.2 L 28.0-32.0 pg Mean Corpuscular Hemoglobin Concent 30.8 L 32.0-36.0 g/dL Red Cell Distribution Width 14.9 H 11.8-14.3 % Platelet Count 388 140-450 10^3/uL Mean Platelet Volume 7.8 6.9-10.8 fL Neutrophils (%) (Auto) 64.0 37.0-80.0 % Lymphocytes (%) (Auto) 24.6 10.0-50.0 % Monocytes (%) (Auto) 8.1 0.0-12.0 % Eosinophils (%) (Auto) 2.5 0.0-7.0 % Basophils (%) (Auto) 0.8 0.0-2.0 % Neutrophils # (Auto) 3.6 1.6-8.6 10 ^3/uL Lymphocytes # (Auto) 1.4 0.4-5.4 10 ^3/uL Monocytes # (Auto) 0.5 0-1.3 10 ^3/uL Eosinophils # (Auto) 0.1 0-0.8 10 ^3/uL Basophils # (Auto) 0 0-0.2 10 ^3/uL Nucleated Red Blood Cells 0.0 % Sodium Level 127 L 136-145 mmol/L Potassium Level 4.1 3.5-5.1 mmol/L Chloride Level 95 L 98-107 mmol/L Carbon Dioxide Level 23 20-31 mmol/L Anion Gap 9 5-15 Blood Urea Nitrogen 11 9-23 mg/dL Creatinine 0.85 0.550-1.02 mg/dL Glomerular Filtration Rate Calc 84 >90 mL/min BUN/Creatinine Ratio 12.9 10.0-20.0 Serum Glucose 634 *H 74-106 mg/dL Calcium Level 10.6 H 8.7-10.4 mg/dL B-Type Natriuretic Peptide 949.06 0-100 pg/mL Assessment acute on chronic HF NYHA class III NSTEMi obesity meth abuse tachycardia Plan/Recommendation need to give more aggressive diuretics check echo check UDS check test once diuresed, recommend LHC for eval, heparin gtt initiate HF meds once more stable Plan discussed with: Patient MARTHA HAILE MD Nov 01, 2024 12:07
[2024-11-01 12:11] LABS: Amphetamine Screen, Urine Pos (NEGATIVE); Barbiturate Scree,Urine Neg (NEGATIVE); Benzodiazephine Screen, Urine Neg (NEGATIVE); Cannabinoid Screen, Urine Neg (NEGATIVE); Cocaine Screen, Urine Neg (NEGATIVE); Opiate Scree,Urine Neg (NEGATIVE); Phencyclidine Screen, Urine Neg (NEGATIVE)
[2024-11-01] MEDS: BUMETANIDE 2.5mg/10ml (0.25 mg/ml) INJ IV SCH (13:26)
[2024-11-01] MEDS: metOLazone 5 MG TAB PO ONE (13:28)
[2024-11-01 14:53] LABS: INR 1.07 (0.9-1.15); Partial Thromboplastin Time 58.3 SEC (24.5-34.5); Prothrombin Time 11.3 sec (9.3-11.8)
[2024-11-01] MEDS: ONDANSETRON HCL 4 MG/2 ML VIAL IV PRN (16:25)
[2024-11-01] MEDS: MORPHINE SULFATE INJ 2 MG/ml SYRG IV PRN (16:26)
[2024-11-01] MEDS: METOPROLOL TARTRATE 25 MG TAB PO SCH (16:52)
--- NOTE | 2024-11-01 17:21 | DVHPN2 ---
Subjective Patient continues to report having intermittent chest pain. Reviewed: Care Plan, H&P, Labs, Medications Changes from previous H/P or p: No Changes General: Per HPI Objective Vitals Vital Signs Date Time Temp Pulse Resp B/P (MAP) Pulse Ox O2 Delivery O2 Flow Rate FiO2 11/01/24 16:52 131 107/65 11/01/24 16:26 17 11/01/24 16:00 96 11/01/24 10:00 98.6 98.6 11/01/24 08:37 Nasal Cannula* 2 28 Intake/Output Intake and Output 11/01/24 07:00 Intake Total 70 ml Balance 70 ml Intake IV Total 70 ml General Appearance: Alert, Oriented X3, Cooperative, No acute distress HEENT: Atraumatic, PERRLA Lungs: Clear to auscultation, Normal air movement Cardiovascular: Normal S1, Normal S2 Abdomen: Normal bowel sounds, Soft, No tenderness Genitourinary: No Apparent Abnormalities Back: Flank Tenderness, Midline Tenderness Neuro: Normal gait, Normal speech Psych/Mental Status: Mental status NL, Mood NL Medications Current Medications Medications Dose Ordered Sig/Tori Route Start Time Stop Time Status Last Admin Dose Admin Ondansetron HCl 4 mg Q4HP PRN IV 11/01/24 01:30 11/01/24 16:25 4 MG Nitroglycerin 0.4 mg Q5MINP PRN SL 11/01/24 01:30 Morphine Sulfate 2 mg Q30M PRN IV 11/01/24 01:30 11/01/24 16:26 2 MG Diagnostic Test (Pha) 1 strip IQ4HR 11/01/24 04:00 11/01/24 16:00 1 STRIP Insulin Human Regular IQ4HR SC 11/01/24 04:00 11/01/24 16:48 20 UNITS Dextrose 50 ml UD PRN IV 11/01/24 01:30 Heparin Sodium/ Dextrose 250 ml @ 12 mls/hr [id number] IV 11/01/24 12:15 11/01/24 23:59 11/01/24 12:15 12 MLS/HR Bumetanide 2.5 mg BIDD IV 11/01/24 12:15 11/01/24 13:26 2.5 MG Metoprolol Tartrate 12.5 mg BID PO 11/01/24 16:15 11/01/24 16:52 12.5 MG Laboratory Results Laboratory Tests 10/31/24 19:13 Chemistry Test 10/31/24 19:13 Calcium Level 10.6 mg/dL (8.7-10.4) H Coagulation Test 10/31/24 19:13 11/01/24 05:25 11/01/24 14:17 Prothrombin Time 10.9 sec (9.3-11.8) 11.4 sec (9.3-11.8) 11.3 sec (9.3-11.8) Prothrombin Time INR 1.03 (0.9-1.15) 1.08 (0.9-1.15) 1.07 (0.9-1.15) Activated Partial Thromboplast Time 26.3 SEC (24.5-34.5) 44.6 SEC (24.5-34.5) H 58.3 SEC (24.5-34.5) H Cardiac Markers Test 10/31/24 19:13 B-Type Natriuretic Peptide 949.06 pg/mL (0-100) Urinalysis Test 11/01/24 11:15 Urine Color Straw (Yellow) Urine Clarity Turbid (Clear) H Urine pH 6.5 (5.0-9.0) Urine Specific [place] 1.030 (1.001-1.035) Urine Protein Trace (Negative) H Urine Ketones Trace (Negative) Urine Blood Negative /uL (Negative) Urine Nitrite Negative (Negative) Urine Bilirubin Negative (Negative) Urine Urobilinogen Normal mg/dL (Negative) Urine Leukocyte Esterase 3+ /uL (Negative) Urine RBC 4 /hpf (0 - 4) Urine Microscopic WBC 74 /HPF (0-5) H Urine Squamous Epithelial Cells Few /hpf (<5) Urine Bacteria Few /hpf (None Seen) H Urine Mucus Few (None Seen) Urine Yeast (Budding) Few /hpf (None Seen) Urine Glucose 2+ mg/dL (Normal) H Labs and/or images reviewed: Labs reviewed by me, Image(s) reviewed by me Assessment/Plan Assessment/Plan Impression: -NSTEMI, probably type II secondary decompensated heart failure -rule out CAD -acute decompensated systolic heart failure with ejection fraction 15% -obesity -amphetamine abuse -diabetes mellitus Plan: -continue IV diuresis -O2 supplementation to keep saturation greater than 92% -start metoprolol tartrate 12.5 mg p.o. twice a day given patient's and tachycardia -cardiology consultation: Plans for possible left heart catheterization -regular insulin sliding scale -repeat labs in a.m. Critical care time spent with patient discussing and formulating plan of care: 40 minutes. This does not include time spent performing procedures. This medical document was created using an electronic medical record system with [employer] dictation system. Although this document has been carefully reviewed, there may still be some phonetic and typographical errors. These areas are purely typographical due to imperfections of the software programs, and do not reflect any compromise in the patient's medical care. Plan discussed with: Patient, Other (RN) My Orders Orders - MAURIZIO LIM NP Procedure Category Date Status Time Metoprolol Tartrate PHA 11/01/24 In Process Tablet (Lopressor Ta 16:15 Consistent DIET 11/01/24 Transmitted Carb(Ccho)Diabetes Dinner Npo After Midnight DIET 11/01/24 Transmitted Dinner Date of Service: Nov 01, 2024 Billing Provider: MAURIZIO LIM NP Common Visit Codes: [id number] CARE 30-74 MIN MAURIZIO LIM NP Nov 01, 2024 17:21
[2024-11-01 20:45] LABS: INR 1.12 (0.9-1.15); Partial Thromboplastin Time 53.1 SEC (24.5-34.5); Prothrombin Time 11.7 sec (9.3-11.8)
[2024-11-02] VITALS (11 sets, daily range): BP systolic 85–108; BP diastolic 54–81; PULSE 109–123; RESP 16–21; TEMP 98.6–100.4; O2SAT 93–100
[2024-11-02 02:22] LABS: Potassium 4.2 mmol/L (3.5-5.1)
[2024-11-02 02:23] LABS: Anion Gap 5 (5-15); Calcium 9.4 mg/dL (8.7-10.4); Carbon Dioxide 29 mmol/L (20-31)
[2024-11-02 02:28] LABS: BUN/Creatinine Ratio 12.5 (10.0-20.0); Blood Urea Nitrogen 11 mg/dL (9-23)
[2024-11-02 02:29] LABS: Chloride 95 mmol/L (98-107); Glucose 302 mg/dL (74-106); Sodium 129 mmol/L (136-145)
[2024-11-02 02:32] LABS: Basophils # (auto) 0 10 ^3/uL (0-0.2); Basophils % (auto) 0.6 % (0.0-2.0); Eosinophils # (auto) 0.2 10 ^3/uL (0-0.8); Eosinophils % (auto) 3.1 % (0.0-7.0); Hematocrit 37.8 % (36.0-46.0); Hemoglobin 12.1 g/dL (12.2-16.2); Lymphocytes % (auto) 35.2 % (10.0-50.0); Mean Corpuscular Hgb Conc. 32.1 g/dL (32.0-36.0); Mean Corpuscular Volume 77.9 fL (80.0-100.0); Monocytes # (auto) 0.5 10 ^3/uL (0-1.3); Monocytes % (auto) 8.7 % (0.0-12.0); Neutrophils % (auto) 52.4 % (37.0-80.0); Nucleated Red Blood Cells % 0.3 %; Platelet Count (auto) 357 10^3/uL (140-450); Red Blood Cells 4.85 10^6/uL (4.0-5.20); Red Cell Distribution Width 14.4 % (11.8-14.3); White Blood Cell 5.7 10^3/uL (4.4-10.8)
[2024-11-02 03:00] LABS: INR 1.08 (0.9-1.15); Partial Thromboplastin Time 29.5 SEC (24.5-34.5); Prothrombin Time 11.4 sec (9.3-11.8)
--- NOTE | 2024-11-02 08:48 | DVHPN2 ---
Subjective Patient denies any symptoms at this time Reviewed: Care Plan, H&P, Labs, Medications Changes from previous H/P or p: No Changes General: Per HPI Objective Vitals Vital Signs Date Time Temp Pulse Resp B/P (MAP) Pulse Ox O2 Delivery O2 Flow Rate FiO2 11/02/24 06:47 98/57 11/02/24 06:39 113 18 94 11/01/24 19:30 Room Air* 0 21 11/01/24 10:00 98.6 98.6 Intake/Output Intake and Output 11/02/24 07:00 Intake Total 48 ml Balance 48 ml Intake IV Total 48 ml General Appearance: Alert, Oriented X3, Cooperative, No acute distress HEENT: Atraumatic, PERRLA Lungs: Clear to auscultation, Normal air movement Cardiovascular: Normal S1, Normal S2 Abdomen: Normal bowel sounds, Soft, No tenderness Genitourinary: No Apparent Abnormalities Back: Flank Tenderness, Midline Tenderness Neuro: Normal gait, Normal speech Psych/Mental Status: Mental status NL, Mood NL Medications Current Medications Medications Dose Ordered Sig/Tori Route Start Time Stop Time Status Last Admin Dose Admin Ondansetron HCl 4 mg Q4HP PRN IV 11/01/24 01:30 11/01/24 16:25 4 MG Nitroglycerin 0.4 mg Q5MINP PRN SL 11/01/24 01:30 Morphine Sulfate 2 mg Q30M PRN IV 11/01/24 01:30 11/01/24 16:26 2 MG Diagnostic Test (Pha) 1 strip IQ4HR 11/01/24 04:00 11/02/24 08:13 1 STRIP Insulin Human Regular IQ4HR SC 11/01/24 04:00 11/02/24 08:13 4 UNITS Dextrose 50 ml UD PRN IV 11/01/24 01:30 Bumetanide 2.5 mg BIDD IV 11/01/24 12:15 11/01/24 13:26 2.5 MG Metoprolol Succinate 25 mg DAILY PO 11/02/24 10:00 Losartan Potassium 12.5 mg DAILY PO 11/02/24 10:00 Laboratory Results Laboratory Tests 11/02/24 01:57 Chemistry Test 11/02/24 01:57 Calcium Level 9.4 mg/dL (8.7-10.4) Coagulation Test 11/01/24 14:17 11/01/24 20:06 11/02/24 01:57 Prothrombin Time 11.3 sec (9.3-11.8) 11.7 sec (9.3-11.8) 11.4 sec (9.3-11.8) Prothrombin Time INR 1.07 (0.9-1.15) 1.12 (0.9-1.15) 1.08 (0.9-1.15) Activated Partial Thromboplast Time 58.3 SEC (24.5-34.5) H 53.1 SEC (24.5-34.5) H 29.5 SEC (24.5-34.5) Urinalysis Test 11/01/24 11:15 Urine Color Straw (Yellow) Urine Clarity Turbid (Clear) H Urine pH 6.5 (5.0-9.0) Urine Specific [place] 1.030 (1.001-1.035) Urine Protein Trace (Negative) H Urine Ketones Trace (Negative) Urine Blood Negative /uL (Negative) Urine Nitrite Negative (Negative) Urine Bilirubin Negative (Negative) Urine Urobilinogen Normal mg/dL (Negative) Urine Leukocyte Esterase 3+ /uL (Negative) Urine RBC 4 /hpf (0 - 4) Urine Microscopic WBC 74 /HPF (0-5) H Urine Squamous Epithelial Cells Few /hpf (<5) Urine Bacteria Few /hpf (None Seen) H Urine Mucus Few (None Seen) Urine Yeast (Budding) Few /hpf (None Seen) Urine Glucose 2+ mg/dL (Normal) H Labs and/or images reviewed: Labs reviewed by me, Image(s) reviewed by me Assessment/Plan Assessment/Plan Impression: -NSTEMI, probably type II secondary decompensated heart failure, Rule out NSTEMI I -rule out CAD -acute decompensated systolic heart failure with ejection fraction 15% -obesity -amphetamine abuse -diabetes mellitus -hyponatremia Plan: Events: Plans for left heart catheterization today. Patient continues to have tachycardia. Continue with implementation of goal-directed medical therapy -O2 supplementation to keep saturation greater than 92% -Toprol-XL 25 mg p.o. daily -losartan 50 mg p.o. daily -continue IV diuresis -cardiology consultation: Plans for possible left heart catheterization -regular insulin sliding scale -repeat labs in a.m. Critical care time spent with patient discussing and formulating plan of care: 40 minutes. This does not include time spent performing procedures. This medical document was created using an electronic medical record system with [employer] computerized dictation system. Although this document has been carefully reviewed, there may still be some phonetic and typographical errors. These areas are purely typographical due to imperfections of the software programs, and do not reflect any compromise in the patient's medical care. Plan discussed with: Patient, Other (RN) My Orders Orders - MAURIZIO LIM NP Procedure Category Date Status Time Consistent DIET 11/01/24 Transmitted Carb(Ccho)Diabetes Dinner Npo After Midnight DIET 11/01/24 Transmitted Dinner * Wound Consult CONS 11/01/24 Transmitted Metoprolol Xl PHA 11/02/24 In Process Succinate (Toprol Xl) 10:00 Hemoglobin A1c LAB 11/02/24 Logged 07:39 Basic Metabolic Panel LAB 11/03/24 Verified 04:00 Hemoglobin & LAB 11/03/24 Verified Hematocrit 04:00 Losartan Tablet PHA 11/02/24 In Process (Cozaar Tablet) 10:00 Date of Service: Nov 02, 2024 Billing Provider: MAURIZIO LIM NP Common Visit Codes: [id number] CARE 30-74 MIN MAURIZIO LIM NP Nov 02, 2024 08:48
[2024-11-02] MEDS: LOSARTAN POTASSIUM 25 MG TAB PO SCH (10:09)
[2024-11-02] MEDS: METOPROLOL SUCCINATE XL 50 MG TAB PO SCH (10:10)
[2024-11-02] MEDS: MIDAZOLAM HCL 2MG/2ML 2ml VIAL (1mg/ml) ONE (13:29)
[2024-11-02] MEDS: VERAPAMIL 2.5MG/ML INJ 2ML VIAL IV ONE (13:29)
[2024-11-02] MEDS: ANGIOMAX 250 MG VIAL IV ONE (13:29)
[2024-11-02] MEDS: LIDOCAINE 2%HCL (LOCAL ANESTH.) INJ 20ML MDV ONE (13:29)
[2024-11-02] MEDS: fentaNYL CITRATE 100 MCG/2 ML VL ONE (13:29)
[2024-11-02] MEDS: SODIUM CHL 0.9% 0 ML ONE (13:30)
[2024-11-02] MEDS: IODIXANOL 320MG/ML 100ML BTL IV ONE (13:36)
[2024-11-02] MEDS: HEPARIN SODIUM (PORCINE) 5000 UNITS/ML 1ML VIAL ONE (14:33)
--- NOTE | 2024-11-02 14:36 | DVHPN2 ---
Progress Note Date Seen: Nov 02, 2024 Medical Necessity Reason Pt with a Central, PICC or Fol: No Subjective Patient reports: Feels better Other Systems: No I and O saved in ER s/p cath has 3v cad Objective vital signs Vital Sign Date Time Temp Pulse Resp B/P (MAP) Pulse Ox O2 Delivery O2 Flow Rate FiO2 11/02/24 10:35 114 18 103/66 (78) 97 11/01/24 19:30 Room Air* 0 21 11/01/24 10:00 98.6 98.6 Total Intake and Output 11/01/24 11/01/24 11/02/24 15:00 23:00 07:00 Intake Total 12 ml 24 ml 12 ml Balance 12 ml 24 ml 12 ml medications Current Medications Medications Dose Ordered Sig/Tori Route Start Time Stop Time Status Last Admin Dose Admin Ondansetron HCl 4 mg Q4HP PRN IV 11/01/24 01:30 11/01/24 16:25 4 MG Nitroglycerin 0.4 mg Q5MINP PRN SL 11/01/24 01:30 Morphine Sulfate 2 mg Q30M PRN IV 11/01/24 01:30 11/01/24 16:26 2 MG Diagnostic Test (Pha) 1 strip IQ4HR 11/01/24 04:00 11/02/24 08:13 1 STRIP Insulin Human Regular IQ4HR SC 11/01/24 04:00 11/02/24 08:13 4 UNITS Dextrose 50 ml UD PRN IV 11/01/24 01:30 Bumetanide 2.5 mg BIDD IV 11/01/24 12:15 11/01/24 13:26 2.5 MG Metoprolol Succinate 25 mg DAILY PO 11/02/24 10:00 11/02/24 10:10 25 MG Losartan Potassium 12.5 mg DAILY PO 11/02/24 10:00 11/02/24 10:09 12.5 MG Examination: GENERAL:Abnormal, HEENT:Abnormal, LUNGS:Abnormal, CVS:Abnormal, ABDOMEN:Abnormal laboratory and microbiology Laboratory Tests 11/02/24 01:57 Test 11/02/24 01:57 Range/Units Serum Glucose 302 H 74-106 mg/dL Problem List/Assessment/Plan Problem List/Assessment/Plan nstemi severe chf with LV dysfunction active meth abuse uncontrolled DM severe 3v cad on Lhc needs tx to higher level center for cabg vs pci very poor candidate given above lovenox asa statin cont diuresis, bumex spoke to attending immediately post cath Plan discussed with: Patient My Orders My Orders Orders - MARTHA HAILE MD Procedure Category Date Status Time Heparin Per Pharmacy [facility] 11/02/24 In Process Protocol 21:16 Cl Left Heart Cath CL 11/02/24 Taken 07:30 Date of Service: Nov 02, 2024 Billing Provider: MARTHA HAILE MD Common Visit Codes: NOT BILLABLE MARTHA HAILE MD Nov 02, 2024 14:36
--- NOTE | 2024-11-02 14:45 | DVHOP2 ---
Operative Report Operative Report CARDIAC CUTTER AND EDGE TRIMMER PROCEDURE REPORT [place], [place] Date of Service: 11/02/24 Network Development Coordinator: Martha Haile MD PROCEDURES PERFORMED: Coronary angiogram, left heart catheterization, conscious sedation administration and supervision, less than 15 minutes; fluoroscopy use and interpretation. PREOPERATIVE DIAGNOSES: NSTEMI, severe c hf POSTOP DIAGNOSIS: severe cad DESCRIPTION OF PROCEDURE: The patient or appropriate family signed informed consent understanding the risks, benefits and alternatives of the procedure, they wished to proceed. The patient was brought to the cardiac record label intern in n.p.o. state. The patient was prepped in a sterile fashion. Sedation was used per cardiac cath protocol. I administered 2 mL of 2% lidocaine to the right wrist. With an antegrade front wall puncture. I cannulated the right radial artery and placed a 6-[place]izen [place] Glides[place] slender. Next, an intra-arterial spasmolytic was administered. Next, a - 5 [place] catheter and were used for coronary angiogram and LVEDP measurement and pressure pullback. At the completion of procedure, all guides and wires were removed, and there were no immediate complications. 5000 U of IV heparin given. FINDINGS: RCA: Moderate vessel off the right sinus of Valsalva, there is a mid vessel 80% focal stenosis. distal RCA gives off a very long PDA that has a long ostial 99% stenosis LEFT MAIN: Moderate size left main, it bifurcates into LAD and circumflex. no severe stenosis. CIRCUMFLEX: Moderate caliber vessel coming off the left main. prox CX is patent. at bifurcation there is a 0,1,1 bifurcation lesion OM1 has a 95% stenosis and mid CX has a 95% stenosis . OM2 has a bifurcating vessel distally. the infiero branh has a 80% stenosis . )M3 has a mid vessel 80% stenosis LAD: LAD is a moderate caliber vessel coming of the left main. ostial has moderate plaque. prox LAD to mid LAD has a very long 90% stenosis, at bifurcation of D2 , the mid LAD has a ruptured 99% stenosis . distal LAD has a target. D2 has an 85% stenosis. LVEDP of 21 mmhg CONCLUSIONS: 1. severe 3v cad 2. acute severe systolic HF PLAN: Aggressive risk factor modification and medical management for the patient. iv diuretics tx to higher level center damien cabg vs pci consult MARTHA HAILE MD Nov 02, 2024 14:45
[2024-11-02] MEDS: DIGOXIN (250MCG/ML) 2 ML AMPULE IV ONE (18:05)
[2024-11-02] MEDS ORDERED: METO-289 PO (20:21)
[2024-11-02] MEDS ORDERED: ESCI10TA PO (20:21)
[2024-11-02] MEDS ORDERED: PRAV20TA3 PO (20:21)
[2024-11-02] MEDS ORDERED: SITA50TA PO (20:21)
[2024-11-02] MEDS ORDERED: EMPA1TAB PO (20:21)
[2024-11-02] MEDS ORDERED: ACE650RS PR (20:21)
[2024-11-02] MEDS ORDERED: OMEP20TA PO (20:21)
[2024-11-02] MEDS: ENOXAPARIN SOD 100 MG/1 ML SYRINGE SC SCH (21:49)
[2024-11-03] VITALS (8 sets, daily range): BP systolic 84–105; BP diastolic 44–70; PULSE 75–123; RESP 18–20; TEMP 97.7–99.1; O2SAT 97–100
[2024-11-03 05:34] LABS: Hematocrit 43.8 % (36.0-46.0)
[2024-11-03 05:51] LABS: Chloride 99 mmol/L (98-107); Potassium 3.9 mmol/L (3.5-5.1)
[2024-11-03 05:52] LABS: Anion Gap 10 (5-15); Calcium 10.3 mg/dL (8.7-10.4); Carbon Dioxide 25 mmol/L (20-31)
[2024-11-03 05:57] LABS: BUN/Creatinine Ratio 13.2 (10.0-20.0); Blood Urea Nitrogen 9 mg/dL (9-23)
[2024-11-03 06:01] LABS: Glucose 153 mg/dL (74-106); Sodium 134 mmol/L (136-145)
[2024-11-03] MEDS: ACCU-CHEK COMFORT CURVE STRIP VI SCH ×2 (12:00→17:04)
[2024-11-03] MEDS: InsuLIN REG 1unit/0.01ml Soln (100units/ml) SC SCH ×2 (12:00→17:05)
--- NOTE | 2024-11-03 12:52 | DVHPN2 ---
Subjective Patient continues to have intermittent substernal chest pain, rated a 5/10. Reviewed: Care Plan, H&P, Labs, Medications Changes from previous H/P or p: No Changes General: Per HPI Objective Vitals Vital Signs Date Time Temp Pulse Resp B/P (MAP) Pulse Ox O2 Delivery O2 Flow Rate FiO2 11/03/24 09:00 98.6 104 18 97/56 (70) 99 98.6 11/03/24 08:00 Nasal Cannula* 2 28 Intake/Output Intake and Output 11/03/24 07:00 Intake Total 575 ml Balance 575 ml Intake Oral 575 ml # Voids 1 General Appearance: Alert, Oriented X3, Cooperative, mild distress HEENT: Atraumatic, PERRLA Lungs: Clear to auscultation, Normal air movement Cardiovascular: Normal S1, Normal S2 Abdomen: Normal bowel sounds, Soft, No tenderness Genitourinary: No Apparent Abnormalities Back: Flank Tenderness, Midline Tenderness Neuro: Normal gait, Normal speech Skin: Dry, Intact Psych/Mental Status: Mental status NL, Mood NL Medications Current Medications Medications Dose Ordered Sig/Tori Route Start Time Stop Time Status Last Admin Dose Admin Ondansetron HCl 4 mg Q4HP PRN IV 11/01/24 01:30 11/01/24 16:25 4 MG Nitroglycerin 0.4 mg Q5MINP PRN SL 11/01/24 01:30 Morphine Sulfate 2 mg Q30M PRN IV 11/01/24 01:30 11/01/24 16:26 2 MG Dextrose 50 ml UD PRN IV 11/01/24 01:30 Bumetanide 2.5 mg BIDD IV 11/01/24 12:15 11/01/24 13:26 2.5 MG Enoxaparin Sodium 90 mg Q12HR SC 11/02/24 22:00 11/03/24 08:46 90 MG Insulin Human Regular ACHS SC 11/03/24 17:00 UNV Diagnostic Test (Pha) 1 strip ACHS 11/03/24 17:00 UNV Laboratory Results Laboratory Tests 11/02/24 01:57 11/03/24 04:33 Chemistry Test 11/03/24 04:33 Calcium Level 10.3 mg/dL (8.7-10.4) Urinalysis Test 11/01/24 11:15 Urine Color Straw (Yellow) Urine Clarity Turbid (Clear) H Urine pH 6.5 (5.0-9.0) Urine Specific [place] 1.030 (1.001-1.035) Urine Protein Trace (Negative) H Urine Ketones Trace (Negative) Urine Blood Negative /uL (Negative) Urine Nitrite Negative (Negative) Urine Bilirubin Negative (Negative) Urine Urobilinogen Normal mg/dL (Negative) Urine Leukocyte Esterase 3+ /uL (Negative) Urine RBC 4 /hpf (0 - 4) Urine Microscopic WBC 74 /HPF (0-5) H Urine Squamous Epithelial Cells Few /hpf (<5) Urine Bacteria Few /hpf (None Seen) H Urine Mucus Few (None Seen) Urine Yeast (Budding) Few /hpf (None Seen) Urine Glucose 2+ mg/dL (Normal) H Labs and/or images reviewed: Labs reviewed by me, Image(s) reviewed by me Assessment/Plan Assessment/Plan Impression: -NSTEMI, probably type II secondary decompensated heart failure, Rule out NSTEMI I -rule out CAD -acute decompensated systolic heart failure with ejection fraction 15% -obesity -amphetamine abuse -diabetes mellitus -hyponatremia Plan: Events: Discussion made with Dr. Pace, cardiologists yesterday regarding findings of cardiac catheterization. Patient has severe triple-vessel disease. Dr. Pace spoke with pipe and boiler covers supervisor at [facility] who has accepted the patient. Patient's hemoglobin A1c found to be greater than 14. -continue aggressive regular insulin sliding scale. Add Lantus 10 units q.h.s. -O2 supplementation to keep saturation greater than 92% -Toprol-XL 25 mg p.o. daily -losartan 50 mg p.o. daily -continue IV diuresis -cardiology consultation: Plans for possible left heart catheterization -regular insulin sliding scale -repeat labs in a.m. -transfer to [facility] once bed is available. Critical care time spent with patient discussing and formulating plan of care: 40 minutes. This does not include time spent performing procedures. This medical document was created using an electronic medical record system with [employer] system. Although this document has been carefully reviewed, there may still be some phonetic and typographical errors. These areas are purely typographical due to imperfections of the software programs, and do not reflect any compromise in the patient's medical care. Plan discussed with: Patient, Other (RN) My Orders Orders - MAURIZIO LIM NP Procedure Category Date Status Time * Resident Services Director CONS 11/02/24 Transmitted Consult Insulin R (Human) PHA 11/03/24 Logged (Insulin R) 17:00 Glucose Blood PHA 11/03/24 Logged (Accu-Chek Comfort 17:00 Insulin Lantus PHA 11/03/24 Transmitted (Glargine) (Lantus) 22:00 Date of Service: Nov 03, 2024 Billing Provider: MAURIZIO LIM NP Common Visit Codes: [id number] INP/OBS CARE(HIGH) MAURIZIO LIM NP Nov 03, 2024 12:52
[2024-11-03] MEDS: INSULIN LANTUS (GLARGINE) 1 /0.01ml (100units/ml) SC SCH (23:04)
[2024-11-03] MEDS: traMADol HCL 50 MG TAB PO ONE (23:34)
[2024-11-04] VITALS (8 sets, daily range): BP systolic 95–101; BP diastolic 43–62; PULSE 79–136; RESP 18–20; TEMP 97.7–99.1; O2SAT 95–100
--- NOTE | 2024-11-04 14:05 | DVHDS2 ---
Discharge Summary Date of Admission Nov 01, 2024 at 01:16 Date of Discharge: Nov 04, 2024 Admitting Diagnosis NSTEMI Labs/Diagnostic Data: Laboratory Results Test 11/04/24 11:31 11/03/24 04:33 11/02/24 01:57 11/01/24 11:15 POC Glucose 396 mg/dl (70-106) Hemoglobin 14.0 g/dL (12.2-16.2) Hematocrit 43.8 % (36.0-46.0) Sodium Level 134 mmol/L (136-145) Potassium Level 3.9 mmol/L (3.5-5.1) Chloride Level 99 mmol/L (98-107) Carbon Dioxide Level 25 mmol/L (20-31) Anion Gap 10 (5-15) Blood Urea Nitrogen 9 mg/dL (9-23) Creatinine 0.68 mg/dL (0.550-1.02) Glomerular Filtration Rate Calc 107 mL/min (>90) BUN/Creatinine Ratio 13.2 (10.0-20.0) Serum Glucose 153 mg/dL (74-106) Calcium Level 10.3 mg/dL (8.7-10.4) White Blood Count 5.7 10^3/uL (4.4-10.8) Red Blood Count 4.85 10^6/uL (4.0-5.20) Mean Corpuscular Volume 77.9 fL (80.0-100.0) Mean Corpuscular Hemoglobin 25.0 pg (28.0-32.0) Mean Corpuscular Hemoglobin Concent 32.1 g/dL (32.0-36.0) Red Cell Distribution Width 14.4 % (11.8-14.3) Platelet Count 357 10^3/uL (140-450) Mean Platelet Volume 7.7 fL (6.9-10.8) Neutrophils (%) (Auto) 52.4 % (37.0-80.0) Lymphocytes (%) (Auto) 35.2 % (10.0-50.0) Monocytes (%) (Auto) 8.7 % (0.0-12.0) Eosinophils (%) (Auto) 3.1 % (0.0-7.0) Basophils (%) (Auto) 0.6 % (0.0-2.0) Neutrophils # (Auto) 3.0 10 ^3/uL (1.6-8.6) Lymphocytes # (Auto) 2.0 10 ^3/uL (0.4-5.4) Monocytes # (Auto) 0.5 10 ^3/uL (0-1.3) Eosinophils # (Auto) 0.2 10 ^3/uL (0-0.8) Basophils # (Auto) 0 10 ^3/uL (0-0.2) Nucleated Red Blood Cells 0.3 % Prothrombin Time 11.4 sec (9.3-11.8) Prothrombin Time INR 1.08 (0.9-1.15) Activated Partial Thromboplast Time 29.5 SEC (24.5-34.5) Hemoglobin A1c > 14.0 % A1C (<5.7) Urine Color Straw (Yellow) Urine Clarity Turbid (Clear) Urine pH 6.5 (5.0-9.0) Urine Specific [place] 1.030 (1.001-1.035) Urine Protein Trace (Negative) Urine Ketones Trace (Negative) Urine Blood Negative /uL (Negative) Urine Nitrite Negative (Negative) Urine Bilirubin Negative (Negative) Urine Urobilinogen Normal mg/dL (Negative) Urine Leukocyte Esterase 3+ /uL (Negative) Urine RBC 4 /hpf (0 - 4) Urine Microscopic WBC 74 /HPF (0-5) Urine Squamous Epithelial Cells Few /hpf (<5) Urine Bacteria Few /hpf (None Seen) Urine Mucus Few (None Seen) Urine Yeast (Budding) Few /hpf (None Seen) Urine Glucose 2+ mg/dL (Normal) Urine Opiates Screen Neg (NEGATIVE) Urine Fentanyl Screen Neg (NEGATIVE) Urine Barbiturates Screen Neg (NEGATIVE) Urine Phencyclidine Screen Neg (NEGATIVE) Urine Amphetamines Screen Pos (NEGATIVE) Urine Benzodiazepines Screen Neg (NEGATIVE) Urine Cocaine Screen Neg (NEGATIVE) Urine Cannabinoids Screen Neg (NEGATIVE) Test 11/01/24 05:25 10/31/24 22:13 10/31/24 19:13 Troponin I High Sensitivity 7104 ng/L (</=34) Influenza Type A Antigen Negative (Negative) Influenza Type B Antigen Negative (Negative) SARS-CoV-2 Antigen (Rapid) Negative (NEGATIVE) B-Type Natriuretic Peptide 949.06 pg/mL (0-100) Other Laboratory Tests 11/03/24 04:33 11/02/24 01:57 Brief Hx & Hospital Course: History of Present Illness 49-year-old female presents for evaluation of shortness for breath. Patient reports initially her symptoms starting five days ago with a nonproductive cough. She developed shortly after shortness for breath. She states over the past two days she has been having substernal chest pressure in mild bilateral pedal edema. Denies fever or chills. No other acute complaints reported . Course of hospitalization: Patient had increasing elevated troponins. Patient was found to be in decompensated heart failure. Echocardiogram reveals ejection fraction of 15%. Patient was also noted to have a hemoglobin A1c greater than 14. Patient was taken for left heart catheterization which revealed critical proximal LAD stenosis as well as circumflex and RCA disease. Discussion was made with Dr. Pace regarding plan of care, for which the patient will be transferred to higher level of care for evaluation of high-risk PCI versus CABG. Patient was started on insulin sliding scale, titrated to aggressive scale given uncontrolled blood sugars. Patient was also titrated with Lantus, currently at 15 units twice a day. Patient was currently chest pain free. Given the patient's marginal blood pressure, beta blockers has been held. Patient was currently receiving IV Bumex. Patient will be transferred to [facility] once bed is available. Physical examination General: Alert and Oriented x3. No acute distress. Well-nourished. Obesity Eyes: EOMI. Anicteric. HENT: Moist mucous membranes. Lungs: Clear to auscultation bilaterally. No accessory muscle use. Cardiovascular: Regular rate and rhythm. No murmur. No JVD. Abdomen: Soft, non-tender and non-distended. No palpable masses. Extremities: No edema. Non-tender. Skin: No rashes or lesions. Warm. Neurologic: No focal neurological deficits. CN II-XII grossly intact, but not individually tested. Psychiatric: Cooperative. Appropriate mood and affect. Total time spent with patient discussing and formulating plan of care: 35 minutes. This medical document was created using an electronic medical record system with [employer] system. Although this document has been carefully reviewed, there may still be some phonetic and typographical errors. These areas are purely typographical due to imperfections of the software programs, and do not reflect any compromise in the patient's medical care. Consults/Reason for consult Cardiology: NSTEMI Condition at Discharge: Higher Level of Care Final Diagnosis/Problems List NSTEMI with multivessel CAD Secondary Diagnosis: NSTEMI type 1 with multivessel disease -acute decompensated systolic heart failure with ejection fraction 15% -obesity -amphetamine abuse -diabetes mellitus -hyponatremia Discharge Disposition: Acute Care Facility Discharge Instruct/Medications Diet: Consistent carbohydrate, Cardiac 2g Na,low cholest Activity: No Restrictions, As Tolerated Follow Up/Referral: Per accepting Telecommunications Line Installer Medications: Refer to med rec form 36 Discharge Statement: "Patient was advised to return to the ER or call 911 if any headaches, dizziness, shortness of breath, chest pain, abdominal pain, bleeding, fevers, or worsening of medical condition. Patient was counseled about treatment plan, medications, possible side effects, patientverbalized understanding. All questions were answered to the best of my ability. This discharge took greater then 30 minutes in planning, reviewing documentation, counseling the patient, and discussing with other team members." ASSESSMENT ASSESSMENT Assessment NSTEMI with multivessel CAD Date of Service: Nov 04, 2024 Billing Provider: MAURIZIO LIM NP Common Visit Codes: [id number] INP/OBS CARE(HIGH) MAURIZIO LIM NP Nov 04, 2024 14:05
[2024-11-04] MEDS: PANTOPRAZOLE 40 MG TAB PO ONE (21:35)
[2024-11-04] MEDS: INSULIN LANTUS (GLARGINE) 1 /0.01ml (100units/ml) SC SCH (22:04)
[2024-11-05 01:00] VITALS: BP 87/49; PULSE 122; RESP 19; TEMP 98.1; O2SAT 99
[2024-11-05] MEDS: HYDROcodone-ACET 5/325MG TAB PO PRN (02:02)
[2024-11-05 05:00] VITALS: BP 102/50; PULSE 109; RESP 19; TEMP 98.3; O2SAT 98
[2024-11-05] MEDS: PANTOPRAZOLE 40 MG TAB PO SCH (05:50)
[2024-11-05 08:00] VITALS: PULSE 118
[2024-11-05 08:49] VITALS: BP 97/60; PULSE 110; RESP 20; TEMP 98.3; O2SAT 96
--- NOTE | 2024-11-05 11:30 | DVHPN2 ---
Subjective Patient continues to have intermittent substernal chest pain, rated a 5/10. Reviewed: Care Plan, H&P, Labs, Medications Changes from previous H/P or p: No Changes General: Per HPI Objective Vitals Vital Signs Date Time Temp Pulse Resp B/P (MAP) Pulse Ox O2 Delivery O2 Flow Rate FiO2 11/05/24 08:49 98.3 110 20 97/60 (72) 96 98.3 11/05/24 08:00 Nasal Cannula* 2 28 Intake/Output Intake and Output 11/05/24 07:00 Intake Total 2200 ml Balance 2200 ml Intake Oral 2200 ml # Voids 4 # Bowel Movements 1 General Appearance: Alert, Oriented X3, Cooperative, mild distress HEENT: Atraumatic, PERRLA Lungs: Clear to auscultation, Normal air movement Cardiovascular: Normal S1, Normal S2 Abdomen: Normal bowel sounds, Soft, No tenderness Genitourinary: No Apparent Abnormalities Back: Flank Tenderness, Midline Tenderness Neuro: Normal gait, Normal speech Skin: Dry, Intact Psych/Mental Status: Mental status NL, Mood NL Medications Current Medications Medications Dose Ordered Sig/Tori Route Start Time Stop Time Status Last Admin Dose Admin Ondansetron HCl 4 mg Q4HP PRN IV 11/01/24 01:30 11/01/24 16:25 4 MG Nitroglycerin 0.4 mg Q5MINP PRN SL 11/01/24 01:30 Morphine Sulfate 2 mg Q30M PRN IV 11/01/24 01:30 11/01/24 16:26 2 MG Dextrose 50 ml UD PRN IV 11/01/24 01:30 Bumetanide 2.5 mg BIDD IV 11/01/24 12:15 11/05/24 05:49 2.5 MG Enoxaparin Sodium 90 mg Q12HR SC 11/02/24 22:00 11/05/24 08:47 90 MG Insulin Human Regular ACHS SC 11/03/24 17:00 11/05/24 06:24 4 UNITS Diagnostic Test (Pha) 1 strip ACHS 11/03/24 17:00 11/05/24 06:25 1 STRIP Insulin Glargine 15 units BID@0700,2200 SC 11/04/24 22:00 11/05/24 06:25 15 UNITS Pantoprazole Sodium 40 mg DAILY@0600 PO 11/05/24 06:00 11/05/24 05:50 40 MG Acetaminophen/ Hydrocodone Bitart 1 tab Q6HPRN PRN PO 11/05/24 01:45 11/05/24 02:02 1 TAB Laboratory Results Laboratory Tests 11/02/24 01:57 11/03/24 04:33 Urinalysis Test 11/01/24 11:15 Urine Color Straw (Yellow) Urine Clarity Turbid (Clear) H Urine pH 6.5 (5.0-9.0) Urine Specific [place] 1.030 (1.001-1.035) Urine Protein Trace (Negative) H Urine Ketones Trace (Negative) Urine Blood Negative /uL (Negative) Urine Nitrite Negative (Negative) Urine Bilirubin Negative (Negative) Urine Urobilinogen Normal mg/dL (Negative) Urine Leukocyte Esterase 3+ /uL (Negative) Urine RBC 4 /hpf (0 - 4) Urine Microscopic WBC 74 /HPF (0-5) H Urine Squamous Epithelial Cells Few /hpf (<5) Urine Bacteria Few /hpf (None Seen) H Urine Mucus Few (None Seen) Urine Yeast (Budding) Few /hpf (None Seen) Urine Glucose 2+ mg/dL (Normal) H Labs and/or images reviewed: Labs reviewed by me, Image(s) reviewed by me Assessment/Plan Assessment/Plan Impression: -NSTEMI, probably type II secondary decompensated heart failure, Rule out NSTEMI I -rule out CAD -acute decompensated systolic heart failure with ejection fraction 15% -obesity -amphetamine abuse -diabetes mellitus -hyponatremia Plan: Events: Awaiting transfer [facility]. Blood sugars improving. -continue aggressive insulin sliding scale with Lantus b.i.d. -O2 supplementation to keep saturation greater than 92% -hold LORRAINE and Arb given patient's low blood pressure. -continue IV diuresis -cardiology consultation: Plans for possible left heart catheterization -regular insulin sliding scale -repeat labs in a.m. -transfer to [facility] once bed is available. Critical care time spent with patient discussing and formulating plan of care: 40 minutes. This does not include time spent performing procedures. This medical document was created using an electronic medical record system with [employer] system. Although this document has been carefully reviewed, there may still be some phonetic and typographical errors. These areas are purely typographical due to imperfections of the software programs, and do not reflect any compromise in the patient's medical care. Plan discussed with: Patient, Other (RN) My Orders Orders - MAURIZIO LIM NP Procedure Category Date Status Time Insulin Lantus PHA 11/04/24 In Process (Glargine) (Lantus) 22:00 Discharge DISCHARGE 11/04/24 Transmitted 13:19 Apply/Change Dressing KYREE 11/04/24 In Process 14:37 Imaging Transfer ORDERS 11/05/24 Transmitted Request 08:03 Basic Metabolic Panel LAB 11/05/24 Logged 10:38 Magnesium LAB 11/05/24 Logged 10:38 Date of Service: Nov 05, 2024 Billing Provider: MAURIZIO LIM NP Common Visit Codes: [id number] INP/OBS CARE(HIGH) MAURIZIO LIM NP Nov 05, 2024 11:30
[2024-11-05 11:54] LABS: Anion Gap 9 (5-15); Calcium 9.5 mg/dL (8.7-10.4); Carbon Dioxide 27 mmol/L (20-31)
[2024-11-05 11:59] LABS: BUN/Creatinine Ratio 18.1 (10.0-20.0); Blood Urea Nitrogen 13 mg/dL (9-23)
[2024-11-05 12:04] LABS: Chloride 95 mmol/L (98-107); Glucose 242 mg/dL (74-106); Magnesium 1.6 mg/dL (1.6-2.6); Sodium 131 mmol/L (136-145)
[2024-11-05 12:45] VITALS: BP 81/56; PULSE 121; RESP 18; TEMP 97.9; O2SAT 96
[2024-11-05 14:13] VITALS: BP 97/59; PULSE 122; RESP 18; TEMP 98.3; O2SAT 93
[2024-11-06 10:26] LABS: Hepatitis B Surface Antibody Negative (Negative); Hepatitis C Antibody Negative (Negative)
--- NOTE | 2024-11-06 10:50 | ECG ---
[facility] Test Date: 2024-11-05 Test Time: 01:13:13 Pat Name: BETHANY MCDANIEL Department: Respiratoy Room: 0215T A Gender: F Developer Advocate: : 1975 Requested By: TATIANA SYKES Order Number: [id number] Reading MD: Idris Campbell Measurements Intervals [place] Rate: 126 P: 148 MA: 150 QRS: -26 QRSD: 84 T: 168 QT: 339 QTc: 491 Interpretive Statements Sinus or ectopic atrial tachycardia Probable left atrial enlargement LVH with secondary repolarization abnormality Inferior infarct, old Anterior infarct, old Baseline wander in lead(s) V3 Electronically Signed On 11-06-2024 21:06:22 PST by Idris Campbell Please click the below link to view image of tracing.
== END 2024-11-05 15:00 | disposition short-term general hospital (02) | DRG 190 ==
LOC: ER 18:34 → TELE 11-01 01:16 → TELE-CENTR 11-02 16:39
PROVIDERS: ADMIT Nurse Practitioner; ATTEND Nurse Practitioner Acute Care
PROC: 4A023N7 Measurement of Cardiac Sampling and Pressure, Left Heart, Percutaneous Approach (ICD-10-PCS; principal; 2024-11-02)
PROC: B211YZZ Fluoroscopy of Multiple Coronary Arteries using Other Contrast (ICD-10-PCS; 2024-11-02)
PROC: B215YZZ Fluoroscopy of Left Heart using Other Contrast (ICD-10-PCS; 2024-11-02)
DX: I21.4 Non-ST elevation (NSTEMI) myocardial infarction (principal); I50.23 Acute on chronic systolic (congestive) heart failure; E87.1 Hypo-osmolality and hyponatremia; E11.65 Type 2 diabetes mellitus with hyperglycemia; I11.0 Hypertensive heart disease with heart failure; E66.9 Obesity, unspecified; F15.10 Other stimulant abuse, uncomplicated; E78.5 Hyperlipidemia, unspecified; I49.3 Ventricular premature depolarization; F41.9 Anxiety disorder, unspecified; Z88.6 Allergy status to analgesic agent; Z68.35 Body mass index [BMI] 35.0-35.9, adult
CPT/HCPCS: 36415; 71046; 71275; 80048; 80307; 81001; 82962; 83036; 83735; 83880; 84484; 85014; 85018; 85025; 85610; 85730; 86706; 86803; 86850; 86900; 86901; 87426; 87804; 93005; 93306; 93458; 93970; 94640; 96365; 96375; 99152; 99291; G0378; J1815; J2250; J2405; Q9967

== ENCOUNTER 2025-01-10 17:12 | Inpatient (IN) | payer MEDICAID ==
[~2025-01-10] VITALS: Ht 162.6 cm; Wt 88.0 kg
[~2025-01-10 17:12] MED LIST changes: +ACE650RS PR; -ALBU108A5 IN; -AZIT500T66 PO; +EMPA1TAB PO; +ESCI10TA PO; +METO-289 PO; +OMEP20TA PO; +PRAV20TA3 PO; -PROM1SOL4 PO; +SITA50TA PO
--- NOTE | 2025-01-10 17:32 | ED.PDOC ---
HPI Comments HPI: 49F presents to the ER for dizziness. Pt states on having N/ and dizziness for 1 hr today. States on having it in the past due from having low blood pressure. Pt took BP medications this morno. Pt took her BP when the dizziness began while sitting, down it was 92/64 PMHx:DM, HTN, High Lipids, CHF, SHx:Stents x3, BTL Pancho: HPI: Poor Historian. 49-year-old female with a history of dizziness due to hypotension in the past with the associated nausea. Patient presents with similar symptoms today. Patient states that she felt dizzy and sat down that she checked her blood pressure was in the 90s systolically which is low for her. Patient had associated nausea. Symptoms are better with sitting down worse with standing. Patient took her morning medications of metoprolol 25 mg. Patient denies any focal deficits or any other acute symptoms. On arrival her vital signs are stable. Past Medical History: Past Surgical History: REVIEW OF SYSTEMS: CONSTITUTIONAL: Denies acute: fever, diaphoresis, chills, HEAD: Denies acute: headache, photophobia Eyes: Denies acute: Double vision, vision loss, eye pain, eye discharge. EARS: Denies acute: tinnitus, hearing loss, ear discharge, ear pain, THROAT: Denies acute: sore throat, swelling, difficulty swallowing , pain with swallowing, change in voice. NECK: Denies acute: neck pain, neck swelling, stiff neck. HEART: Denies acute : chest pain, palpitations, LUNGS: Denies acute: SOB, wheezing, cough, hemoptysis ABDOMEN: Denies acute: abdominal pain, , Vomiting, diarrhea, melena , hematemesis, hematochezia SKIN: Denies acute: rash, redness, lesions, itchiness. EXTREMITIES: Denies acute: calf pain, numbness, tingling, weakness, denies pain in extremity. Denies acute: Low back pain. Neuro: Denies acute: focal neurological deficit, motor or sensory focal neurological deficit, tremors, seizure like activity, confusion, , change in mental status, loss of bowel or bladder function, cauda equina like symptoms. : Denies acute: dysuria, hematuria, flank pain, increase in urinary frequency. PSYCH: Denies acute: hallucination, suicidal ideation, homicidal ideation. FEMALE: Denies acute: abnormal vaginal bleeding, foul odor, unusual discharge. PHYSICAL EXAM: General: ----mild----acute distress, awake and alert. Head: normocephalic, atraumatic. Neck: supple, trachea is midline, no swelling. Throat: Normal phonation. Eyes:, no erythema, no purulent discharge, no proptosis, no icterus. Heart: regular rate, regular rhythm, no significant murmur appreciated. Lungs: no apparent respiratory distress, Able to speak in full sentences. No wheezing, no rhonchi, no crackles. No stridors Clear to auscultation bilaterally. Abdomen: non tender to palpation, non distended, soft, no guarding, no rebound, + bowel sounds. Neuro: Awake, Alert, oriented to name, self, situation, follows commands GCS=15. Speech is normal. Skin: no petechia, no purpura, no cyanosis, non-pale, not jaundice. Lower extremities: --no - Pitting edema no deformity, no focal swelling, no calf TTP. Makes eye contact. moves all four extremities. Face: no apparent facial droop. ED COURSE: Chief Complaint: Dizziness Time Seen by MD: 17:30 Reviewed Notes: Nurses Notes, Allergies Allergies: Coded Allergies: Ibuprofen (Unverified Allergy, Severe, anaphylaxis, 10/31/24) Home Meds Reported Medications Insulin Glargine (Lantus) 100 Unit/Ml Inj, 100 UNIT SC, INJ 01/11/25 Ranolazine (Ranolazine ER) 500 Mg Tab, 500 MG PO, TAB 01/11/25 Digoxin (Lanoxin) 125 Mcg Tab, 125 MCG PO, TAB 01/11/25 Ticagrelor Base (BRILINTA) 90 Mg Tab, 90 MG PO, TAB 01/11/25 Pravastatin Sodium (PRAVACHOL TABLET) 20 Mg Tb, 1 TAB PO DAILY, #30 TAB 5 Refills 11/02/24 Escitalopram Oxalate (Lexapro) 10 Mg Tab, 1 TAB PO DAILY, #90 TAB 3 Refills 11/02/24 Metoprolol Succinate (Metoprolol Succinate Er) 50 Mg Tab, 1 TAB PO DAILY, #30 TAB 5 Refills 11/02/24 Sitagliptin Phosphate (Januvia) 50 Mg Tab, 1 TAB PO DAILY, #30 TAB 5 Refills 11/02/24 Omeprazole (Gnp Omeprazole) 20 Mg Tab, 20 MG PO, TAB 11/02/24 Empagliflozin (Jardiance) 10 Mg Tab, 10 MG PO, TAB 11/02/24 Discontinued Reported Medications Acetaminophen (Tylenol) 650 Mg Rc, 650 MG TN, SUPP.RECT 11/02/24 Information Source: Patient Mode of Arrival: Wheelchair Past Medical History PAST MEDICAL HISTORY: Anxiety, CHF, DM, High Lipids, HTN Surgical History: BTL Surgical History (Other): Stents x3 [employer]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 Was a procedure done?: No CP Differential Dx Differential Diagnosis: A-fib, A-Flutter, Angina, Anxiety / Panic Attack, Atrial Dysrhythmia, AV Block 1st Degree, AV Block 2nd Degree, AV Block 3rd Degree, Digoxin Toxicity, Electrolyte Disorder, Heart Failure, Hyperthyroidism, Hyperventilation, Hypoxia, MAT, OK, PAC's, Pacemaker Malfunction, PSVT, Pulmonary Embolus, PVC's, Renal Failure, Sinus Tachycardia, Torsades De Pointes, Ventricular Dysrhythmia, V-Fib, V-Tach, WPW, Other (Orthostatic hypotension, Includes but not limited to thyroid disease, encephalopathy, electrolyte abnormality, sepsis, infection, intracranial pathology, drug adverse effects, arrhythmia, kidney insufficiency, ACS, CVA, malignancy, anemia), N/A Differential Diagnosis: Other X-Ray, Labs, Meds, VS Vital Signs Date Time Temp Pulse Resp B/P (MAP) Pulse Ox O2 Delivery O2 Flow Rate FiO2 01/10/25 18:36 Room Air* 0 21 01/10/25 17:24 97.9 81 20 119/50 (73) 98 97.9 01/10/25 17:24 72 Lab Test 01/10/25 20:14 01/10/25 18:38 01/10/25 17:38 01/10/25 17:22 Range/Units Magnesium Level 2.2 1.6-2.6 mg/dL Total Bilirubin 0.3 0.3 0.2-1.0 mg/dL Direct Bilirubin 0.1 <0.3 mg/dL Aspartate Amino Transferase (AST) 22 22 13-40 U/L Alanine Aminotransferase (ALT) 33 31 7-40 U/L Alkaline Phosphatase 171 H 173 H 46-116 U/L Troponin I High Sensitivity 101 *H 104 *H 98 *H </=34 ng/L Total Protein 7.4 7.7 5.7-8.2 g/dL Albumin 4.2 4.2 3.2-4.8 g/dL Thyroid Stimulating Hormone (TSH) 0.56 0.55-4.78 uIU/mL White Blood Count 4.4 4.4-10.8 10^3/uL Red Blood Count 4.47 4.0-5.20 10^6/uL Hemoglobin 10.2 L 12.2-16.2 g/dL Hematocrit 32.4 L 36.0-46.0 % Mean Corpuscular Volume 72.4 L 80.0-100.0 fL Mean Corpuscular Hemoglobin 22.8 L 28.0-32.0 pg Mean Corpuscular Hemoglobin Concent 31.5 L 32.0-36.0 g/dL Red Cell Distribution Width 16.4 H 11.8-14.3 % Platelet Count 392 140-450 10^3/uL Mean Platelet Volume 7.5 6.9-10.8 fL Neutrophils (%) (Auto) 61.9 37.0-80.0 % Lymphocytes (%) (Auto) 23.8 10.0-50.0 % Monocytes (%) (Auto) 8.7 0.0-12.0 % Eosinophils (%) (Auto) 4.8 0.0-7.0 % Basophils (%) (Auto) 0.8 0.0-2.0 % Neutrophils # (Auto) 2.7 1.6-8.6 10 ^3/uL Lymphocytes # (Auto) 1.1 0.4-5.4 10 ^3/uL Monocytes # (Auto) 0.4 0-1.3 10 ^3/uL Eosinophils # (Auto) 0.2 0-0.8 10 ^3/uL Basophils # (Auto) 0 0-0.2 10 ^3/uL Nucleated Red Blood Cells 0.0 % Sodium Level 135 L 136-145 mmol/L Potassium Level 4.3 3.5-5.1 mmol/L Chloride Level 103 98-107 mmol/L Carbon Dioxide Level 24 20-31 mmol/L Anion Gap 8 5-15 Blood Urea Nitrogen 15 9-23 mg/dL Creatinine 0.69 0.550-1.02 mg/dL Glomerular Filtration Rate Calc 107 >90 mL/min BUN/Creatinine Ratio 21.7 H 10.0-20.0 Serum Glucose 218 H 74-106 mg/dL Lactic Acid Level 1.1 0.4-2.0 mmol/L Calcium Level 9.8 8.7-10.4 mg/dL B-Type Natriuretic Peptide 211.95 0-100 pg/mL POC Glucose 221 H 70-106 mg/dl [place] [id number] Ph: [phone] DIAGNOSTIC IMAGING Diagnostic Imaging Report : [id number] Signed PATIENT: BETHANY DAVID MACCT: [id number] UNIT: [id number] : 1975 LOC: ER ROOM / BED: / AGE / SEX: 49 / F ADM STATUS: REG ER SERVICE ORDERING PHYSICIAN: JUANCARLOS RODRIGUEZ DO PROCEDURE(s): CXRP - CHEST PORTABLE REASON: dizzy with hypotension ORDER NUMBER(s): [id number], ACCESSION NUMBER(s): [id number] EXAM: XR Chest, 1 View CLINICAL INDICATION: dizzy with hypotension TECHNIQUE: Frontal view of the chest. COMPARISON: None FINDINGS: LUNGS AND PLEURAL SPACES: Unremarkable. No consolidation. No pneumothorax. HEART: Unremarkable. No cardiomegaly. MEDIASTINUM: Unremarkable. Normal mediastinal contour. BONES/JOINTS: Unremarkable. No acute fracture. OTHER FINDINGS: . None. IMPRESSION: No acute cardiopulmonary process. ATED BY: ALFREDA BLANCO MD DICTATED DATE/TIME: 01/10/251807 SIGNED BY: ALFREDA BLANCO MD SIGNED DATE/TIME: 01/10/251807 CC: Time of 1ST Reevaluation: 18:00 Reevaluation 1ST: Unchanged Patient Education/Counseling: Diagnosis, Treatment, Prognosis Family Education/Counseling: No Family Present Comments Patient presented with the above HPI.--this and hypotensive episode----workup was initiated. patient was found with the above mentioned diagnosis. the following medications were ordered: please refer to order lists of meds and tests obtained by myself Dr. Rodriguez. Patient ED course and VS have been stabilized. Patient has been reassessed in the ED and remained in a stable condition. Pertinent incidental findings were discussed with the patient and/or family. Patient/family voices understanding and is agreeable with plan. Patient has been observed in the ED adequate length of time to insure improvement/stability. Escalation of care considered: Consideration of escalation to observation or admission Patient was ADMITTED to the medicine team for further evaluation and treatment of their presentation. All the reports of any imaging studies that were ordered by myself were reviewed by myself. Departure 1 Departure Time of Disposition: 19:10 Impression: Primary Impression: Hypotensive episode Additional Impression: Elevated troponin Disposition: ADMITTED INPATIENT Admit to: [facility] Condition: Guarded Discharged With: Self Critical Care Note Critical Care Time?: No Heart Score Heart Score: Heart Score Response (Comments) Value History Slightly Suspicious 0 EKG Normal 0 Age 45-64 1 Risk Factors 1 or 2 risk factors 1 Troponin >3 x's Normal limit 2 Total 4 I personally scribed for JUANCARLOS RODRIGUEZ DO ([email or web address]) on 01/10/25 at 17:32. Electronically submitted by Po Lozoya ([email or web address]). JUANCARLOS RODRIGUEZ DO Jan 10, 2025 17:32
[2025-01-10 17:58] LABS: Basophils # (auto) 0 10 ^3/uL (0-0.2); Basophils % (auto) 0.8 % (0.0-2.0); Eosinophils # (auto) 0.2 10 ^3/uL (0-0.8); Eosinophils % (auto) 4.8 % (0.0-7.0); Hematocrit 32.4 % (36.0-46.0); Hemoglobin 10.2 g/dL (12.2-16.2); Lymphocytes # (auto) 1.1 10 ^3/uL (0.4-5.4); Lymphocytes % (auto) 23.8 % (10.0-50.0); Mean Corpuscular Hemoglobin 22.8 pg (28.0-32.0); Mean Corpuscular Hgb Conc. 31.5 g/dL (32.0-36.0); Mean Corpuscular Volume 72.4 fL (80.0-100.0); Monocytes # (auto) 0.4 10 ^3/uL (0-1.3); Monocytes % (auto) 8.7 % (0.0-12.0); Neutrophils # (auto) 2.7 10 ^3/uL (1.6-8.6); Neutrophils % (auto) 61.9 % (37.0-80.0); Platelet Count (auto) 392 10^3/uL (140-450); Red Blood Cells 4.47 10^6/uL (4.0-5.20); Red Cell Distribution Width 16.4 % (11.8-14.3); White Blood Cell 4.4 10^3/uL (4.4-10.8)
--- NOTE | 2025-01-10 18:10 | DVH ---
EXAM: XR Chest, 1 View CLINICAL INDICATION: dizzy with hypotension TECHNIQUE: Frontal view of the chest. COMPARISON: None FINDINGS: LUNGS AND PLEURAL SPACES: Unremarkable. No consolidation. No pneumothorax. HEART: Unremarkable. No cardiomegaly. MEDIASTINUM: Unremarkable. Normal mediastinal contour. BONES/JOINTS: Unremarkable. No acute fracture. OTHER FINDINGS: . None. IMPRESSION: No acute cardiopulmonary process.
[2025-01-10 18:12] LABS: Albumin 4.2 g/dL (3.2-4.8); Anion Gap 8 (5-15); Aspartate Aminotransferase 22 U/L (13-40); BUN/Creatinine Ratio 21.7 (10.0-20.0); Bilirubin, Total 0.3 mg/dL (0.2-1.0); Blood Urea Nitrogen 15 mg/dL (9-23); Calcium 9.8 mg/dL (8.7-10.4); Carbon Dioxide 24 mmol/L (20-31); Chloride 103 mmol/L (98-107); Potassium 4.3 mmol/L (3.5-5.1); Total Protein 7.7 g/dL (5.7-8.2)
[2025-01-10 19:02] LABS: Alkaline Phosphatase 173 U/L (46-116); Glucose 218 mg/dL (74-106); Sodium 135 mmol/L (136-145)
[2025-01-10 20:10] LABS: Alanine Aminotransferase 31 U/L (7-40)
--- NOTE | 2025-01-10 22:09 | DVHHPRES ---
History of Present Illness Resident Creating Document: RELL SEGURA RESIDENT History of Present Illness Ms. Deleon is a 49-year-old female with past medical history of CAD status post 3 PTCA 2024 at [facility] with no residual deficits 2024, right groin I and D who presented to the ED with a chief complaint sharp atypical chest pain and shortness of breaths on exertion for the past 1 day. Patient woke up with chest pain which was midsternal, localized, sharp, radiating to the left shoulder, unrelated to exertion, that lasted for about 2 hours. Chest pain increases on deep breaths. Also reports shortness of breath for a day only on exertion, denies orthopnea or PND. Patient also reported dizziness on standing, she took her metoprolol in the morning and later on blood pressure was 92/ 64. On arrival, patient was actually stable, on room air, CBC showing iron- deficiency anemia, troponins were elevated at 98 then 104. EKG was unremarkable for ST changes. Last echocardiogram completed 11/15/2024 showed EF 25%. Severe global dysfunction. Patient had similar presentation on 12/22 at this facility when her troponins were trending in 60s and 70s. Past medical/surgical history: See above [facility] Social history: Lives with brother and son. Smoked 1 pack a day for the past 20+ years, history of marijuana use, rest methamphetamine use 10/28 Home medications: Aspirin, atorvastatin, digoxin 125 mcg daily, Jardiance 10 mg daily, Lexapro 10 mg daily, insulin Lantus 15 units SC b.i.d., omeprazole 20 mg daily, ranolazine 500 mg p.o. b.i.d., Brilinta 90 mg daily Patient seen and examined at the bedside. Aspirin 325 mg was administered by the ER. Plavix was kept on hold. Chest x-ray shows pulmonary vascular congestion, as compared to previous. Patient has 2 medical records, [id number] and [id number] Review of Systems Allergies: Coded Allergies: Ibuprofen (Unverified Allergy, Severe, anaphylaxis, 10/31/24) Exam Vital Signs Vital Signs Date Time Temp Pulse Resp B/P (MAP) Pulse Ox O2 Delivery O2 Flow Rate FiO2 01/10/25 18:36 Room Air* 0 21 01/10/25 17:24 97.9 81 20 119/50 (73) 98 97.9 Exam Patient lying in bed, in no acute distress General: Obese, afebrile, palor, mucosae are moist Cardiovascular: Regular S1 and S2. No murmurs, gallops or rubs. No JVD elevation. 1+ pitting edema bilaterally. Respiratory: Bilateral basilar crackles heard on auscultation. Saturating 95 on room air. Abdomen: Soft, nontender, nondistended, normoactive bowel sounds, no rebound tenderness, no organomegaly, no masses Genitourinary: Deferred MSK/skin: Mobilizes 4 limbs. Skin is dry and warm Neurological: No motor, no sensitive deficits, normal speech. Pupils are isocoric and reactive. Psych/Mental Status: A/Ox4 Labs/Xrays Labs Test 01/10/25 20:14 01/10/25 17:38 01/10/25 17:22 Range/Units Troponin I High Sensitivity 101 *H </=34 ng/L White Blood Count 4.4 4.4-10.8 10^3/uL Red Blood Count 4.47 4.0-5.20 10^6/uL Hemoglobin 10.2 L 12.2-16.2 g/dL Hematocrit 32.4 L 36.0-46.0 % Mean Corpuscular Volume 72.4 L 80.0-100.0 fL Mean Corpuscular Hemoglobin 22.8 L 28.0-32.0 pg Mean Corpuscular Hemoglobin Concent 31.5 L 32.0-36.0 g/dL Red Cell Distribution Width 16.4 H 11.8-14.3 % Platelet Count 392 140-450 10^3/uL Mean Platelet Volume 7.5 6.9-10.8 fL Neutrophils (%) (Auto) 61.9 37.0-80.0 % Lymphocytes (%) (Auto) 23.8 10.0-50.0 % Monocytes (%) (Auto) 8.7 0.0-12.0 % Eosinophils (%) (Auto) 4.8 0.0-7.0 % Basophils (%) (Auto) 0.8 0.0-2.0 % Neutrophils # (Auto) 2.7 1.6-8.6 10 ^3/uL Lymphocytes # (Auto) 1.1 0.4-5.4 10 ^3/uL Monocytes # (Auto) 0.4 0-1.3 10 ^3/uL Eosinophils # (Auto) 0.2 0-0.8 10 ^3/uL Basophils # (Auto) 0 0-0.2 10 ^3/uL Nucleated Red Blood Cells 0.0 % Sodium Level 135 L 136-145 mmol/L Potassium Level 4.3 3.5-5.1 mmol/L Chloride Level 103 98-107 mmol/L Carbon Dioxide Level 24 20-31 mmol/L Anion Gap 8 5-15 Blood Urea Nitrogen 15 9-23 mg/dL Creatinine 0.69 0.550-1.02 mg/dL Glomerular Filtration Rate Calc 107 >90 mL/min BUN/Creatinine Ratio 21.7 H 10.0-20.0 Serum Glucose 218 H 74-106 mg/dL Lactic Acid Level 1.1 0.4-2.0 mmol/L Calcium Level 9.8 8.7-10.4 mg/dL Total Bilirubin 0.3 0.2-1.0 mg/dL Aspartate Amino Transferase (AST) 22 13-40 U/L Alanine Aminotransferase (ALT) 31 7-40 U/L Alkaline Phosphatase 173 H 46-116 U/L B-Type Natriuretic Peptide 211.95 0-100 pg/mL Total Protein 7.7 5.7-8.2 g/dL Albumin 4.2 3.2-4.8 g/dL POC Glucose 221 H 70-106 mg/dl Assessment/Plan Assessment/Plan Atypical chest pain likely pleuritic Shortness of breath secondary to Probable acute on chronic CHF exacerbation NSTEMI, likely type 2 CAD status post 3 PTCA 2024 at [place] Last echocardiogram completed 11/15/2024 showed EF 25%. Severe global dysfunction. Troponins 98, 104, [address] changes Continue aspirin 81 mg daily, hold Plavix Continue home medication ranolazine 500 mg p.o. b.i.d. Continue Jardiance 10 mg daily Consider starting Entresto/lisinopril Started Lasix 40 mg IV daily Chronic anemia, likely iron-deficiency Stool occult ordered Iron panel suggestive of iron-deficiency anemia Consider supplementing iron History of CVA with no residual deficit 2024 Continue aspirin and atorvastatin daily Diabetes mellitus type 2-hemoglobin A1c 10.6 On mild ISS and Lantus GERD Pantoprazole 40 mg daily Cardiac diet Lovenox 40 mg sc daily Plan discussed with patient in which all questions have been answered Goals of care discussed for more than 20 minutes, full code status Case discussed Dr. Slaughter Plan discussed with: Patient My Orders Orders - RELL SEGURA Procedure Category Date Status Time Admit ADMIT 01/10/25 Verified 22:04 Nitroglycerin PHA 01/10/25 Verified Sublingual (Ntrostat 22:15 Morphine Sulfate PHA 01/10/25 Verified Injection 22:15 Oxygen By Nasal RT 01/10/25 Verified Cannula 22:04 Stat Ekg For Chest [facility] 01/10/25 Verified Pain 22:04 Notify Md Of Changes [facility] 01/10/25 Verified From Base 22:04 Ribbon Winder For [facility] 01/10/25 Verified 24 Hours 22:04 Emergency Dysrhythmia [facility] 01/10/25 Verified Protocol 22:04 Rhythm Strips Once [facility] 01/10/25 Verified Every Shift 22:04 Furosemide Injection PHA 01/11/25 Verified (Lasix Injection) 10:00 Furosemide Injection PHA 01/10/25 Verified (Lasix Injection) 22:15 Drug Screen LAB 01/10/25 Verified 22:04 Hepatic Panel LAB 01/10/25 Verified 22:04 Magnesium LAB 01/10/25 Verified 22:04 Thyroid Stimulating LAB 01/10/25 Verified Hormone 22:04 Urinalysis LAB 01/10/25 Verified 22:04 Glucose Blood PHA 01/11/25 Verified (Accu-Chek Comfort 07:00 Mild Sliding Scale PHA 01/11/25 Verified 07:00 Dextrose 50% Syringe PHA 01/10/25 Verified 22:15 Insulin Lantus PHA 01/10/25 Verified (Glargine) (Lantus) 22:15 Date of Service: Jan 10, 2025 Billing Provider: CRISPIN SLAUGHTER MD Common Visit Codes: [id number] INP/OBS CARE (HIGH) RELL SEGURA Jan 10, 2025 22:09 CRISPIN SLAUGHTER MD Jan 11, 2025 10:04
[2025-01-10] MEDS ORDERED: NITROGLYCERIN 0.4 MG SL TAB SL PRN (22:15)
[2025-01-10] MEDS ORDERED: DEXTROSE (50%) 50ML SYRG IV PRN (22:15)
[2025-01-10 22:38] LABS: Albumin 4.2 g/dL (3.2-4.8); Bilirubin, Total 0.3 mg/dL (0.2-1.0); Magnesium 2.2 mg/dL (1.6-2.6); Total Protein 7.4 g/dL (5.7-8.2)
--- NOTE | 2025-01-10 23:26 | DVH ---
Bilateral lower extremity venous duplex Clinical History: r/o dvt pain tenderness on calf Comparison: US BILAT LOWER DVT on DOS: 11/01/24 Technique: Duplex Doppler evaluation of the deep venous systems of both lower extremities from the common femora l veins to the popliteal veins including color Doppler and spectral/pulsed waveform analysis was perf ormed. Findings: RIGHT SIDE: The common femoral vein demonstrates appropriate compressibility and waveform variability. There is compressibility/patency of the great saphenous vein at the proximal thigh. The femoral vein demonstrates appropriate compressibility and waveform variability. The deep femoral vein demonstrates appropriate compressibility and waveform variability. The popliteal vein demonstrates appropriate compressibility and waveform variability. There is normal compressibility at the tibioperoneal trunk. LEFT SIDE: The common femoral vein demonstrates appropriate compressibility and waveform variability. There is compressibility/patency of the great saphenous vein at the proximal thigh. The femoral vein demonstrates appropriate compressibility and waveform variability. The deep femoral vein demonstrates appropriate compressibility and waveform variability. The popliteal vein demonstrates appropriate compressibility and waveform variability. There is normal compressibility at the tibioperoneal trunk. Impression: No evidence of right or left femoropopliteal venous thrombosis.
[2025-01-11] VITALS (8 sets, daily range): BP systolic 97–103; BP diastolic 47–69; PULSE 64–96; RESP 16–18; TEMP 97.8–99.2; O2SAT 94–99
[2025-01-11] MEDS: SODIUM CHLORIDE 0.9% 500 ML IV ONE (03:12)
[2025-01-11] MEDS: ATORVASTATIN 20 MG TAB PO ONE (03:13)
[2025-01-11] MEDS: ASPirin-EC 325mg tab PO ONE (03:13)
[2025-01-11] MEDS: MORPHINE SULFATE INJ 2 MG/ml SYRG IV PRN (03:18)
[2025-01-11] MEDS: INSULIN LANTUS (GLARGINE) 1 /0.01ml (100units/ml) SC SCH (03:22)
[2025-01-11] MEDS: FUROSEMIDE 40 MG/4 ML VIAL IV ONE (03:28)
[2025-01-11 06:08] LABS: Basophils # (auto) 0 10 ^3/uL (0-0.2); Basophils % (auto) 0.7 % (0.0-2.0); Eosinophils # (auto) 0.2 10 ^3/uL (0-0.8); Lymphocytes # (auto) 1.3 10 ^3/uL (0.4-5.4); Lymphocytes % (auto) 27.8 % (10.0-50.0); Monocytes # (auto) 0.5 10 ^3/uL (0-1.3); White Blood Cell 4.8 10^3/uL (4.4-10.8)
[2025-01-11 06:10] LABS: Eosinophils % (auto) 4.5 % (0.0-7.0); Hematocrit 28.6 % (36.0-46.0); Hemoglobin 9.4 g/dL (12.2-16.2); Mean Corpuscular Hemoglobin 23.9 pg (28.0-32.0); Mean Corpuscular Hgb Conc. 32.9 g/dL (32.0-36.0); Mean Corpuscular Volume 72.5 fL (80.0-100.0); Monocytes % (auto) 9.4 % (0.0-12.0); Neutrophils # (auto) 2.8 10 ^3/uL (1.6-8.6); Neutrophils % (auto) 57.6 % (37.0-80.0); Nucleated Red Blood Cells % 0.1 %; Platelet Count (auto) 331 10^3/uL (140-450); Red Blood Cells 3.94 10^6/uL (4.0-5.20); Red Cell Distribution Width 16.6 % (11.8-14.3)
[2025-01-11 06:19] LABS: Alanine Aminotransferase 27 U/L (7-40); Albumin 3.7 g/dL (3.2-4.8); Anion Gap 8 (5-15); Aspartate Aminotransferase 19 U/L (13-40); BUN/Creatinine Ratio 24.1 (10.0-20.0); Blood Urea Nitrogen 19 mg/dL (9-23); Calcium 9.4 mg/dL (8.7-10.4); Carbon Dioxide 25 mmol/L (20-31); Chloride 104 mmol/L (98-107); Potassium 3.7 mmol/L (3.5-5.1); Sodium 137 mmol/L (136-145)
[2025-01-11 06:20] LABS: % Iron Saturation 4.7 % (15-50); Bilirubin, Total 0.3 mg/dL (0.2-1.0)
[2025-01-11 06:28] LABS: Alkaline Phosphatase 147 U/L (46-116); Glucose 145 mg/dL (74-106)
[2025-01-11] MEDS: PANTOPRAZOLE 40 MG TAB PO SCH (06:33)
[2025-01-11] MEDS: ACCU-CHEK COMFORT CURVE STRIP VI SCH (06:34)
[2025-01-11] MEDS: InsuLIN REG 1unit/0.01ml Soln (100units/ml) SC SCH (06:42)
[2025-01-11] MEDS ORDERED: INSLANTI SC (07:11)
[2025-01-11] MEDS ORDERED: RANO500T3 PO (07:11)
[2025-01-11] MEDS ORDERED: TICA90TA PO (07:11)
[2025-01-11] MEDS ORDERED: DIGO1TAB48 PO (07:11)
--- NOTE | 2025-01-11 08:39 | DVHPNRES ---
Progress Note Date Seen: Jan 11, 2025 Resident Creating Document: SEBLE KWONG RESIDENT Medical Necessity Reason Pt with a Central, PICC or Fol: No Subjective Review of Systems Patient is 49 years old female with past medical history of CAD, status post PTCA x3 in November 2024 at [facility], history of CVA post PTCA, no residual, history of right inguinal incisional drainage with a complaint of chest pain. As per patient patient had a chest pain yesterday at home, sudden onset, mediastinal, 10/10 in severity, pressure-like, exacerbation or relieving factor. Pain was associated with some shortness of breaths. Patient also reported when she was standing up she felt dizzy and sweaty. Patient was some nausea but no vomiting. Patient denied any fever, cough, acute joint pain or swelling or sick contact change in vision. Initial lab workup revealed mild anemia with a hemoglobin 10.2, RDW 16.4, mildly elevated troponin I 98> 104> 101, BNP 211. Iron 17,% saturation 4.7, ferritin 7.8. UA leukocyte esterase 2+, WBC 6, bacteria few. CXR no acute cardiopulmonary disease, Doppler study of the lower extremity negative for DVT. Echo 2D on November, revealed-LVEF 25%, severe global dysfunction. PMH-CAD, status post PTCA x3 in November 2024 at [facility], history of CVA post PTCA, no residual, history of right inguinal incisional drainage PSH- Allergy- Ibuprofen Personal History/ Social History- h/o smoking, substance abuse as per patient she last use all these in October 2019 -home medications-digoxin 125 mcg p.o. daily, Jardiance 10 mg p.o. daily, Lexapro 10 mg p.o. daily, insulin glargine, metoprolol 50 mg daily, omeprazole 20 mg daily, pravastatin 20 mg daily, ranolazine 500 mg p.o. b.i.d., sitagliptin 50 mg p.o. daily, Brilinta 90 mg p.o. daily, Patient was seen today at the bedside. Cardiovascular- deny acute cough or palpitation Respiratory denies cough or wheezing Gastrointestinal- denies any rectal bleeding, nausea or vomiting Musculoskeletal-denies acute joint swelling or tenderness or redness Neurological- denies acute dysarthria, dysphagia, change in vision Psychiatry- denies depression or SI or HI Skin- denies acute rash or purpura Patient was seen today for clinical evaluation. Labs and chart reviewed. Patient with a iron-deficiency anemia, ordered cardiology consult for further evaluation and care. Suspected UTI, ordered ceftriaxone 1 g IV daily, pending urine CS. Pending UDS report. Objective vital signs Vital Sign Date Time Temp Pulse Resp B/P (MAP) Pulse Ox O2 Delivery O2 Flow Rate FiO2 01/11/25 06:45 70 18 Room Air* 0 21 01/11/25 05:43 97.8 103/69 (80) 99 97.8 medications Current Medications Medications Dose Ordered Sig/Tori Route Start Time Stop Time Status Last Admin Dose Admin Nitroglycerin 0.4 mg Q5MINP PRN SL 01/10/25 22:15 Morphine Sulfate 2 mg Q30M PRN IV 01/10/25 22:15 01/11/25 03:18 2 MG Furosemide 40 mg DAILY IV 01/11/25 10:00 Diagnostic Test (Pha) 1 strip ACHS 01/11/25 07:00 01/11/25 06:34 1 STRIP Insulin Human Regular ACHS SC 01/11/25 07:00 01/11/25 06:42 2 UNITS Dextrose 50 ml UD PRN IV 01/10/25 22:15 Insulin Glargine 15 units HS SC 01/10/25 22:15 01/11/25 03:22 15 UNITS Aspirin 81 mg DAILY PO 01/11/25 10:00 Atorvastatin Calcium 40 mg HS PO 01/11/25 22:00 Empaglifozin 10 mg DAILY PO 01/11/25 10:00 Pantoprazole Sodium 40 mg DAILY@0600 PO 01/11/25 06:00 01/11/25 06:33 40 MG Ranolazine 500 mg BID PO 01/11/25 10:00 Enoxaparin Sodium 40 mg DAILY SC 01/11/25 10:00 Examination General examination- awake, alert, oriented HEENT- PEERLA, no acute nasal discharge Cardiovascular- S1-S2 audible, rate and rhythm regular, no murmur Respiratory- bilateral basilar lung crackles+ Gastrointestinal-nontender, bowel sound+. Nondistended Musculoskeletal-no acute joint swelling or tenderness or redness Lower extremity- no leg edema Neurological- cranial nerves intact, no acute dysarthria or dysphagia Psychiatry- denies depression or SI or HI Skin- no acute rash or purpura laboratory and microbiology Laboratory Tests 01/11/25 05:33 Test 01/11/25 05:33 Range/Units Serum Glucose 145 H 74-106 mg/dL Problem List/Assessment/Plan Problem List/Assessment/Plan Assessment and plan-patient with chest pain and shortness of breaths, mildly elevated troponin I, pending cardiology consult for further evaluation and care. Suspected drug-induced NSTEMI type 2/musculoskeletal chest pain hazardous she tenderness in the chest wall. November 28, previous echo 2D- LVEF 25%. #Acute chest pain, - rule out acute coronary syndrome -rule out substance abuse induced chest pain -rule out musculoskeletal chest pain # suspected substance abuse acute chest pain-patient's history of substance abuse -troponin I 98 -continue current med # acute chest pain likely acute musculoskeletal pain-chest wall tenderness positive -continue current pain management # NSTEMI type 2 likely due to demand lead -continue current management # acute on chronicHFrEF, -continue aspirin 81 mg daily -atorvastatin 40 mg p.o. q.h.s. -Jardiance 10 mg p.o. daily -pending cardiology consult # acute cystitis without end-organ damage -continue ceftriaxone 1 g IV daily -pending urine culture sensitivity report # CAD, S/P PTCA X3 at [facility] in October 2024 --continue aspirin 81 mg daily -atorvastatin 40 mg p.o. q.h.s. -Jardiance 10 mg p.o. daily -ranolazine 500 mg p.o. b.i.d. -pending cardiology consult # history of CVA, no residual weakness -aspirin 81 mg p.o. daily -atorvastatin 40 mg p.o. q.h.s. # anemia likely iron-deficiency anemia -continue ferrous sulfate 325 mg p.o. daily -monitor CBC # obesity -BMI 33.3 -patient was counseled about the effect of obesity on health, weight reduction, physical activity, low-fat diet # history of substance abuse -UDS pending Goals of care, Code status ; discussed with >15 minutes PUD prophylaxis: Pantoprazole DVT prophylaxis: Lovenox Plan discussed with Dr. Gabriel , nursing staff, Total time spent on patient evaluation, chart review, assessment and plan, discussion discussion >35 minutes Plan discussed with: Patient, Other (RN) My Orders My Orders Orders - SEBLE KWONG Procedure Category Date Status Time Magnesium LAB 01/11/25 In Process 07:39 Hemoglobin A1c LAB 01/11/25 In Process 07:39 Covid19 Antigen [place]ia LAB 01/11/25 Logged Rapid Influenza A&B LAB 01/11/25 Logged 07:42 Blood Alcohol LAB 01/11/25 Logged 07:42 Date of Service: Jan 11, 2025 Billing Provider: FABIAN FISHER MD Common Visit Codes: [id number] INP/OBS CARE(HIGH) SEBLE KWONG Jan 11, 2025 08:39 FABIAN FISHER MD Jan 14, 2025 15:02
[2025-01-11] MEDS: FUROSEMIDE 40 MG/4 ML VIAL IV SCH (09:42)
[2025-01-11] MEDS: ENOXAPARIN SOD 40 MG/0.4 ML SYRINGE SC SCH (09:42)
[2025-01-11] MEDS: ASPirin 81 mg TAB PO SCH (09:42)
[2025-01-11] MEDS: EMPAGLIFLOZIN 10 MG TAB PO SCH (09:43)
[2025-01-11] MEDS: FERROUS SULFATE 325mg EC TAB PO ONE (09:43)
[2025-01-11] MEDS: RANOLAZINE ER 500 MG TAB PO SCH (09:43)
[2025-01-11 10:23] LABS: Rapid Influenza A Negative (Negative); Rapid Influenza B Negative (Negative)
[2025-01-11 10:25] LABS: COVID19 ANTIGEN SOFIA FIA NEGATIVE (NEGATIVE)
[2025-01-11 11:46] LABS: Urine Bacteria FEW /hpf (None Seen); Urine Blood Negative /uL (Negative); Urine Clarity Clear (Clear); Urine Color Light-Yellow (Yellow); Urine Protein, UAD Negative (Negative); Urine Specific Gravity 1.017 (1.001-1.035); Urine Squamous Epithelial Cell FEW /hpf (<5); Urine Urobilinogen Normal (Negative); Urine WBC 6 /HPF (0-5); Urine pH 5.5 (5.0-9.0)
--- NOTE | 2025-01-11 11:58 | ECG ---
[facility] Test Date: 2025-01-10 Test Time: 17:24:53 Pat Name: BETHANY MCDANIEL Department: ER Room: [address] [place] [address] 4 Gender: F Tuck Pointer Helper: PERFECTO : 1975 Requested By: JUANCARLOS RODRIGUEZ Order Number: [id number] Reading MD: Idris Campbell Measurements Intervals [place] Rate: 72 P: 43 [place]: 147 QRS: 49 QRSD: 98 T: 7 QT: 420 QTc: 460 Interpretive Statements Sinus rhythm Low voltage, precordial leads Borderline T abnormalities, anterior leads Baseline wander in lead(s) II,III,aVF,V4 Electronically Signed On 01-11-2025 20:56:16 PDT by Idris Campbell Please click the below link to view image of tracing.
[2025-01-11] MEDS: cefTRIAXone 1GM/50ML D5W 50 ML IV ONE (13:56)
[2025-01-11 15:53] LABS: Opiate Scree,Urine Neg (NEGATIVE)
[2025-01-11 15:56] LABS: Amphetamine Screen, Urine Neg (NEGATIVE); Barbiturate Scree,Urine Neg (NEGATIVE); Benzodiazephine Screen, Urine Neg (NEGATIVE); Cannabinoid Screen, Urine Neg (NEGATIVE); Cocaine Screen, Urine Neg (NEGATIVE); Phencyclidine Screen, Urine Neg (NEGATIVE)
--- NOTE | 2025-01-11 16:29 | DVHINCON2 ---
Date of service: Jan 11, 2025 History of Present Illness 49 yo F with hx of multiple recent admits, severe CHF with class IV HF in past, cad s/p high risk pci at [facility], DM, recent scalp infection admitted for weakness and dizziness. pt has chronic low BP as well. trop is elevated. ecg shows SR septal infarct Past Medical History reviewed Family History: Diabetes mellitus G8 MOTHER FH: COPD (chronic obstructive pulmonary disease) G8 MOTHER FH: hepatic cirrhosis G8 MOTHER Hypertension G8 MOTHER Allergies: Coded Allergies: Ibuprofen (Unverified Allergy, Severe, anaphylaxis, 10/31/24) Home Meds Reported Medications Insulin Glargine (Lantus) 100 Unit/Ml Inj, 100 UNIT SC, INJ 01/11/25 Ranolazine (Ranolazine ER) 500 Mg Tab, 500 MG PO, TAB 01/11/25 Digoxin (Lanoxin) 125 Mcg Tab, 125 MCG PO, TAB 01/11/25 Ticagrelor Base (BRILINTA) 90 Mg Tab, 90 MG PO, TAB 01/11/25 Pravastatin Sodium (PRAVACHOL TABLET) 20 Mg Tb, 1 TAB PO DAILY, #30 TAB 5 Refills 11/02/24 Escitalopram Oxalate (Lexapro) 10 Mg Tab, 1 TAB PO DAILY, #90 TAB 3 Refills 11/02/24 Metoprolol Succinate (Metoprolol Succinate Er) 50 Mg Tab, 1 TAB PO DAILY, #30 TAB 5 Refills 11/02/24 Sitagliptin Phosphate (Januvia) 50 Mg Tab, 1 TAB PO DAILY, #30 TAB 5 Refills 11/02/24 Omeprazole (Gnp Omeprazole) 20 Mg Tab, 20 MG PO, TAB 11/02/24 Empagliflozin (Jardiance) 10 Mg Tab, 10 MG PO, TAB 11/02/24 Discontinued Reported Medications Acetaminophen (Tylenol) 650 Mg Rc, 650 MG [place], SUPP.RECT 11/02/24 Current Medications Current Medications Medications (Trade) Dose Ordered Sig/Tori Route PRN Reason Start Time Stop Time Status Last Admin Nitroglycerin (Ntrostat Sublingual) 0.4 mg Q5MINP PRN SL FOR CHEST PAIN 01/10/25 22:15 Morphine Sulfate 2 mg Q30M PRN IV FOR CHEST PAIN 01/10/25 22:15 01/11/25 03:18 Furosemide (Lasix Injection) 40 mg DAILY IV 01/11/25 10:00 01/11/25 09:42 Diagnostic Test (Pha) (Accu-Chek Comfort Curve T) 1 strip ACHS 01/11/25 07:00 01/11/25 11:10 Insulin Human Regular (InsuLIN R) ACHS SC 01/11/25 07:00 01/11/25 11:38 Dextrose 50 ml UD PRN IV Blood Sugar LESS THAN 60 01/10/25 22:15 Insulin Glargine (Lantus) 15 units HS SC 01/10/25 22:15 01/11/25 03:22 Aspirin 81 mg DAILY PO 01/11/25 10:00 01/11/25 10:49 DC 01/11/25 09:42 Atorvastatin Calcium (Lipitor) 40 mg HS PO 01/11/25 22:00 Empaglifozin (Jardiance) 10 mg DAILY PO 01/11/25 10:00 01/11/25 09:43 Pantoprazole Sodium (Protonix Tablet) 40 mg DAILY@0600 PO 01/11/25 06:00 01/11/25 06:33 Ranolazine (Ranexa ER) 500 mg BID PO 01/11/25 10:00 01/11/25 09:43 Enoxaparin Sodium (Lovenox) 40 mg DAILY SC 01/11/25 10:00 01/11/25 09:42 Ferrous Sulfate 325 mg DAILY PO 01/12/25 10:00 Ticagrelor (Brilinta) 90 mg Q12H PO 01/12/25 08:00 Ceftriaxone Sodium 50 ml @ 100 mls/hr DAILY@09 IV 01/12/25 09:00 Review of Systems 10 pt ros otherwise negative Vital Signs Vital Signs Date Time Temp Pulse Resp B/P (MAP) Pulse Ox O2 Delivery O2 Flow Rate FiO2 01/11/25 12:54 98.2 70 17 98/56 (70) 94 98.2 01/11/25 08:18 Room Air* 0 21 Physical Exam nad s1 s2 rrr ctab soft nt/nd no edema Labs/Diagnostic Data Labs Test 01/11/25 12:46 01/11/25 11:17 01/11/25 11:09 01/11/25 09:30 Range/Units Plasma/Serum Blood Alcohol < 3.0 <10 mg/dL Urine Color Light-yellow Yellow Urine Clarity Clear Clear Urine pH 5.5 5.0-9.0 Urine Specific [place] 1.017 1.001-1.035 Urine Protein Negative Negative Urine Ketones Negative Negative Urine Blood Negative Negative /uL Urine Nitrite Negative Negative Urine Bilirubin Negative Negative Urine Urobilinogen Normal Negative mg/dL Urine Leukocyte Esterase 2+ Negative /uL Urine RBC 8 0 - 4 /hpf Urine Microscopic WBC 6 H 0-5 /HPF Urine Squamous Epithelial Cells Few <5 /hpf Urine Bacteria Few H None Seen /hpf Urine Glucose 4+ H Normal mg/dL Urine Opiates Screen Neg NEGATIVE Urine Fentanyl Screen Neg NEGATIVE Urine Barbiturates Screen Neg NEGATIVE Urine Phencyclidine Screen Neg NEGATIVE Urine Amphetamines Screen Neg NEGATIVE Urine Benzodiazepines Screen Neg NEGATIVE Urine Cocaine Screen Neg NEGATIVE Urine Cannabinoids Screen Neg NEGATIVE POC Glucose 178 H 70-106 mg/dl Influenza Type A Antigen Negative Negative Influenza Type B Antigen Negative Negative SARS-CoV-2 Antigen (Rapid) Negative NEGATIVE Test 01/11/25 05:33 01/10/25 20:14 01/10/25 17:38 Range/Units White Blood Count 4.8 4.4-10.8 10^3/uL Red Blood Count 3.94 L 4.0-5.20 10^6/uL Hemoglobin 9.4 L 12.2-16.2 g/dL Hematocrit 28.6 #L 36.0-46.0 % Mean Corpuscular Volume 72.5 L 80.0-100.0 fL Mean Corpuscular Hemoglobin 23.9 L 28.0-32.0 pg Mean Corpuscular Hemoglobin Concent 32.9 32.0-36.0 g/dL Red Cell Distribution Width 16.6 H 11.8-14.3 % Platelet Count 331 140-450 10^3/uL Mean Platelet Volume 7.3 6.9-10.8 fL Neutrophils (%) (Auto) 57.6 37.0-80.0 % Lymphocytes (%) (Auto) 27.8 10.0-50.0 % Monocytes (%) (Auto) 9.4 0.0-12.0 % Eosinophils (%) (Auto) 4.5 0.0-7.0 % Basophils (%) (Auto) 0.7 0.0-2.0 % Neutrophils # (Auto) 2.8 1.6-8.6 10 ^3/uL Lymphocytes # (Auto) 1.3 0.4-5.4 10 ^3/uL Monocytes # (Auto) 0.5 0-1.3 10 ^3/uL Eosinophils # (Auto) 0.2 0-0.8 10 ^3/uL Basophils # (Auto) 0 0-0.2 10 ^3/uL Nucleated Red Blood Cells 0.1 % Sodium Level 137 136-145 mmol/L Potassium Level 3.7 3.5-5.1 mmol/L Chloride Level 104 98-107 mmol/L Carbon Dioxide Level 25 20-31 mmol/L Anion Gap 8 5-15 Blood Urea Nitrogen 19 9-23 mg/dL Creatinine 0.79 0.550-1.02 mg/dL Glomerular Filtration Rate Calc 92 >90 mL/min BUN/Creatinine Ratio 24.1 H 10.0-20.0 Serum Glucose 145 H 74-106 mg/dL Hemoglobin A1c 9.7 H <5.7 % A1C Calcium Level 9.4 8.7-10.4 mg/dL Magnesium Level 2.0 1.6-2.6 mg/dL Iron Level 17 L 50-170 ug/dL Total Iron Binding Capacity 365 250-425 ug/dL Percent Iron Saturation 4.7 L 15-50 % Ferritin 7.8 L 10-291 ng/mL Total Bilirubin 0.3 0.2-1.0 mg/dL Aspartate Amino Transferase (AST) 19 13-40 U/L Alanine Aminotransferase (ALT) 27 7-40 U/L Alkaline Phosphatase 147 H 46-116 U/L Troponin I High Sensitivity 79 *H </=34 ng/L Total Protein 7.0 5.7-8.2 g/dL Albumin 3.7 3.2-4.8 g/dL Thyroid Stimulating Hormone (TSH) 0.56 0.55-4.78 uIU/mL Lactic Acid Level 1.1 0.4-2.0 mmol/L B-Type Natriuretic Peptide 211.95 0-100 pg/mL Assessment elegvated troponin NYHA class III severe systolic and diastolic acute on chronic hypotension ckd Plan/Recommendation cont dapt treand trops cont tele for now r//o orthostatics Plan discussed with: Patient LAZARAMARTHA Azevedo MD Jan 11, 2025 16:28
[2025-01-11 16:30] LABS: Bilirubin, Direct 0.1 mg/dL (<0.3)
[2025-01-11] MEDS: SODIUM CHLORIDE 0.9% 250 ML IV ONE (22:04)
[2025-01-11] MEDS: ATORVASTATIN 20 MG TAB PO SCH (22:54)
[2025-01-12] VITALS (10 sets, daily range): BP systolic 92–110; BP diastolic 47–94; PULSE 60–77; RESP 14–18; TEMP 97.9–98.6; O2SAT 96–100
[2025-01-12 05:44] LABS: Basophils # (auto) 0.1 10 ^3/uL (0-0.2); Lymphocytes # (auto) 1.5 10 ^3/uL (0.4-5.4); White Blood Cell 4.6 10^3/uL (4.4-10.8)
[2025-01-12 05:50] LABS: Basophils % (auto) 1.1 % (0.0-2.0); Eosinophils # (auto) 0.2 10 ^3/uL (0-0.8); Eosinophils % (auto) 5.3 % (0.0-7.0); Hematocrit 31.2 % (36.0-46.0); Hemoglobin 9.7 g/dL (12.2-16.2); Lymphocytes % (auto) 32.7 % (10.0-50.0); Mean Corpuscular Hemoglobin 22.6 pg (28.0-32.0); Mean Corpuscular Hgb Conc. 31.2 g/dL (32.0-36.0); Mean Corpuscular Volume 72.4 fL (80.0-100.0); Monocytes # (auto) 0.6 10 ^3/uL (0-1.3); Monocytes % (auto) 14.1 % (0.0-12.0); Neutrophils # (auto) 2.1 10 ^3/uL (1.6-8.6); Neutrophils % (auto) 46.8 % (37.0-80.0); Nucleated Red Blood Cells % 0.3 %; Platelet Count (auto) 378 10^3/uL (140-450); Red Cell Distribution Width 16.5 % (11.8-14.3)
[2025-01-12 06:11] LABS: Chloride 104 mmol/L (98-107); Potassium 3.8 mmol/L (3.5-5.1)
[2025-01-12 06:12] LABS: Anion Gap 8 (5-15); Carbon Dioxide 24 mmol/L (20-31)
[2025-01-12 06:16] LABS: Calcium 9.5 mg/dL (8.7-10.4)
[2025-01-12 06:18] LABS: BUN/Creatinine Ratio 23.1 (10.0-20.0); Blood Urea Nitrogen 18 mg/dL (9-23)
[2025-01-12 06:19] LABS: Glucose 108 mg/dL (74-106); Sodium 136 mmol/L (136-145)
[2025-01-12] MEDS: TICAGRELOR 90 MG TAB PO SCH (07:47)
--- NOTE | 2025-01-12 08:13 | ECG ---
[facility] Test Date: 2025-01-11 Test Time: 11:53:24 Pat Name: BETHANY MCDANIEL Department: Respiratoy Room: [address] [place] [address] 4 Gender: F Harmonic Analyst: BENJAMIN SANTOS RN : 1975 Requested By: SEBLE KWONG Order Number: [id number] Reading MD: Measurements Intervals [place] Rate: 60 P: 27 [place]: 159 QRS: -12 QRSD: 97 T: 9 QT: 431 QTc: 431 Interpretive Statements Sinus rhythm Low voltage, extremity and precordial leads Please click the below link to view image of tracing.
[2025-01-12] MEDS: cefTRIAXone 1GM/50ML D5W 50 ML IV SCH (11:45)
[2025-01-12] MEDS: FERROUS SULFATE 325mg EC TAB PO SCH (11:45)
[2025-01-12 12:19] LABS: Hepatitis B Surface Antigen Negative (Negative); Hepatitis C Antibody Negative (Negative)
--- NOTE | 2025-01-12 15:27 | DVHPN2 ---
Progress Note Date Seen: Jan 12, 2025 Medical Necessity Reason Pt with a Central, PICC or Fol: No Subjective Patient reports: Feels better Objective vital signs Vital Sign Date Time Temp Pulse Resp B/P (MAP) Pulse Ox O2 Delivery O2 Flow Rate FiO2 01/12/25 13:00 98.0 77 15 100/53 (69) 97 98.0 01/11/25 20:00 Room Air* 0 21 Total Intake and Output 01/11/25 01/11/25 01/12/25 15:00 23:00 07:00 Intake Total 50 ml 600 ml 350 ml Balance 50 ml 600 ml 350 ml medications Current Medications Medications Dose Ordered Sig/Tori Route Start Time Stop Time Status Last Admin Dose Admin Nitroglycerin 0.4 mg Q5MINP PRN SL 01/10/25 22:15 Morphine Sulfate 2 mg Q30M PRN IV 01/10/25 22:15 01/11/25 03:18 2 MG Furosemide 40 mg DAILY IV 01/11/25 10:00 01/11/25 09:42 40 MG Diagnostic Test (Pha) 1 strip ACHS 01/11/25 07:00 01/12/25 11:37 1 STRIP Insulin Human Regular ACHS SC 01/11/25 07:00 01/12/25 11:49 4 UNITS Dextrose 50 ml UD PRN IV 01/10/25 22:15 Insulin Glargine 15 units HS SC 01/10/25 22:15 01/11/25 22:00 15 UNITS Atorvastatin Calcium 40 mg HS PO 01/11/25 22:00 01/11/25 22:54 40 MG Empaglifozin 10 mg DAILY PO 01/11/25 10:00 01/12/25 11:45 10 MG Pantoprazole Sodium 40 mg DAILY@0600 PO 01/11/25 06:00 01/12/25 07:00 40 MG Ranolazine 500 mg BID PO 01/11/25 10:00 01/12/25 11:46 500 MG Enoxaparin Sodium 40 mg DAILY SC 01/11/25 10:00 01/12/25 11:46 40 MG Ferrous Sulfate 325 mg DAILY PO 01/12/25 10:00 01/12/25 11:45 325 MG Ticagrelor 90 mg Q12H PO 01/12/25 08:00 01/12/25 07:47 90 MG Ceftriaxone Sodium 50 ml @ 100 mls/hr DAILY@09 IV 01/12/25 09:00 01/12/25 11:45 100 MLS/HR Examination: GENERAL:Abnormal, HEENT:Abnormal, LUNGS:Abnormal, CVS:Abnormal, ABDOMEN:Normal laboratory and microbiology Laboratory Tests 01/12/25 05:11 Test 01/12/25 05:11 Range/Units Serum Glucose 108 H 74-106 mg/dL Microbiology Date/Time Source Procedure Growth Status 01/11/25 11:17 Voided Urine Urine Culture - Preliminary Resulted Problem List/Assessment/Plan Problem List/Assessment/Plan nyha class III HF ckd cad pci hypotension bnp is not very elevated start midodrine 10 mg po tid hold BB cont SGLT cont dapt dc ranexa outpt fu Plan discussed with: Patient Date of Service: Jan 12, 2025 Billing Provider: MARTHA HAILE MD Common Visit Codes: NOT BILLABLE MARTHA HAILE MD Jan 12, 2025 15:27
[2025-01-12] MEDS: MIDODRINE HCL 10 MG TAB PO SCH (17:33)
--- NOTE | 2025-01-12 21:26 | DVHPN2 ---
Assessment/Plan Assessment/Plan progress note Patient is 49 years old female with past medical history of CAD, status post PTCA x3 in November 2024 at [facility], history of CVA post PTCA, no residual, history of right inguinal incisional drainage with a complaint of chest pain. As per patient patient had a chest pain yesterday at home, sudden onset, mediastinal, 10/10 in severity, pressure-like, exacerbation or relieving factor. Pain was associated with some shortness of breaths. Patient also reported when she was standing up she felt dizzy and sweaty. Patient was some nausea but no vomiting. Patient denied any fever, cough, acute joint pain or swelling or sick contact change in vision. Initial lab workup revealed mild anemia with a hemoglobin 10.2, RDW 16.4, mildly elevated troponin I 98> 104> 101, BNP 211. Iron 17,% saturation 4.7, ferritin 7.8. UA leukocyte esterase 2+, WBC 6, bacteria few. CXR no acute cardiopulmonary disease, Doppler study of the lower extremity negative for DVT. Echo 2D on November, revealed-LVEF 25%, severe global dysfunction. physical exam aox4 perrla mmm basliar crackles s1 s2 rrr abdomen soft nontender trace le edema labs ekg imaging reviewed assessment and plan #Acute chest pain, - rule out acute coronary syndrome -rule out substance abuse induced chest pain -rule out musculoskeletal chest pain # suspected substance abuse acute chest pain-patient's history of substance abuse -troponin I 98 -continue current med # acute chest pain likely acute musculoskeletal pain-chest wall tenderness positive -continue current pain management # NSTEMI type 2 likely due to demand lead -continue current management # acute on chronicHFrEF, -continue aspirin 81 mg daily -atorvastatin 40 mg p.o. q.h.s. -Jardiance 10 mg p.o. daily -pending cardiology consult # acute cystitis without end-organ damage -continue ceftriaxone 1 g IV daily -pending urine culture sensitivity report # CAD, S/P PTCA X3 at [facility] in October 2024 --continue aspirin 81 mg daily -atorvastatin 40 mg p.o. q.h.s. -Jardiance 10 mg p.o. daily -ranolazine 500 mg p.o. b.i.d. -pending cardiology consult # history of CVA, no residual weakness -aspirin 81 mg p.o. daily -atorvastatin 40 mg p.o. q.h.s. # anemia likely iron-deficiency anemia -continue ferrous sulfate 325 mg p.o. daily -monitor CBC # obesity -BMI 33.3 -patient was counseled about the effect of obesity on health, weight reduction, physical activity, low-fat diet # history of substance abuse -UDS pending diet cardiac dvt ppx lovenox Plan discussed with: Patient Date of Service: Jan 12, 2025 Billing Provider: KAROLYN SALEH MD Common Visit Codes: [id number] INP/OBS CARE(HIGH) KAROLYN SALEH MD Jan 12, 2025 21:26
[2025-01-13 00:58] VITALS: BP 100/65; PULSE 68; RESP 16; TEMP 98.1; O2SAT 99
[2025-01-13 04:57] VITALS: BP 108/72; PULSE 71; RESP 16; TEMP 97.9; O2SAT 100
[2025-01-13 08:30] VITALS: PULSE 57
[2025-01-13 09:00] VITALS: BP 100/66; PULSE 65; RESP 17; TEMP 98.2; O2SAT 98
[2025-01-13 13:00] VITALS: BP 86/52; PULSE 68; RESP 17; TEMP 98.4; O2SAT 95
[2025-01-13] MEDS ORDERED: MID10T PO (15:43)
[2025-01-13] MEDS ORDERED: CEPH250C PO (15:43)
--- NOTE | 2025-01-13 15:44 | DVHDS2 ---
Discharge Summary Date of Admission Jan 10, 2025 at 22:04 Date of Discharge: Jan 13, 2025 Labs/Diagnostic Data: Laboratory Results Test 01/13/25 12:29 01/12/25 05:11 01/11/25 20:18 01/11/25 12:46 POC Glucose 202 mg/dl (70-106) White Blood Count 4.6 10^3/uL (4.4-10.8) Red Blood Count 4.30 10^6/uL (4.0-5.20) Hemoglobin 9.7 g/dL (12.2-16.2) Hematocrit 31.2 % (36.0-46.0) Mean Corpuscular Volume 72.4 fL (80.0-100.0) Mean Corpuscular Hemoglobin 22.6 pg (28.0-32.0) Mean Corpuscular Hemoglobin Concent 31.2 g/dL (32.0-36.0) Red Cell Distribution Width 16.5 % (11.8-14.3) Platelet Count 378 10^3/uL (140-450) Mean Platelet Volume 7.2 fL (6.9-10.8) Neutrophils (%) (Auto) 46.8 % (37.0-80.0) Lymphocytes (%) (Auto) 32.7 % (10.0-50.0) Monocytes (%) (Auto) 14.1 % (0.0-12.0) Eosinophils (%) (Auto) 5.3 % (0.0-7.0) Basophils (%) (Auto) 1.1 % (0.0-2.0) Neutrophils # (Auto) 2.1 10 ^3/uL (1.6-8.6) Lymphocytes # (Auto) 1.5 10 ^3/uL (0.4-5.4) Monocytes # (Auto) 0.6 10 ^3/uL (0-1.3) Eosinophils # (Auto) 0.2 10 ^3/uL (0-0.8) Basophils # (Auto) 0.1 10 ^3/uL (0-0.2) Nucleated Red Blood Cells 0.3 % Sodium Level 136 mmol/L (136-145) Potassium Level 3.8 mmol/L (3.5-5.1) Chloride Level 104 mmol/L (98-107) Carbon Dioxide Level 24 mmol/L (20-31) Anion Gap 8 (5-15) Blood Urea Nitrogen 18 mg/dL (9-23) Creatinine 0.78 mg/dL (0.550-1.02) Glomerular Filtration Rate Calc 94 mL/min (>90) BUN/Creatinine Ratio 23.1 (10.0-20.0) Serum Glucose 108 mg/dL (74-106) Calcium Level 9.5 mg/dL (8.7-10.4) Stool Occult Blood Negative (Negative) Stool Occult Blood Sample #3 (Negative) Plasma/Serum Blood Alcohol < 3.0 mg/dL (<10) Test 01/11/25 11:17 01/11/25 09:30 01/11/25 05:33 01/10/25 20:14 Urine Color Light-yellow (Yellow) Urine Clarity Clear (Clear) Urine pH 5.5 (5.0-9.0) Urine Specific [place] 1.017 (1.001-1.035) Urine Protein Negative (Negative) Urine Ketones Negative (Negative) Urine Blood Negative /uL (Negative) Urine Nitrite Negative (Negative) Urine Bilirubin Negative (Negative) Urine Urobilinogen Normal mg/dL (Negative) Urine Leukocyte Esterase 2+ /uL (Negative) Urine RBC 8 /hpf (0 - 4) Urine Microscopic WBC 6 /HPF (0-5) Urine Squamous Epithelial Cells Few /hpf (<5) Urine Bacteria Few /hpf (None Seen) Urine Glucose 4+ mg/dL (Normal) Urine Opiates Screen Neg (NEGATIVE) Urine Fentanyl Screen Neg (NEGATIVE) Urine Barbiturates Screen Neg (NEGATIVE) Urine Phencyclidine Screen Neg (NEGATIVE) Urine Amphetamines Screen Neg (NEGATIVE) Urine Benzodiazepines Screen Neg (NEGATIVE) Urine Cocaine Screen Neg (NEGATIVE) Urine Cannabinoids Screen Neg (NEGATIVE) Influenza Type A Antigen Negative (Negative) Influenza Type B Antigen Negative (Negative) SARS-CoV-2 Antigen (Rapid) Negative (NEGATIVE) Hemoglobin A1c 9.7 % A1C (<5.7) Magnesium Level 2.0 mg/dL (1.6-2.6) Iron Level 17 ug/dL (50-170) Total Iron Binding Capacity 365 ug/dL (250-425) Percent Iron Saturation 4.7 % (15-50) Ferritin 7.8 ng/mL (10-291) Total Bilirubin 0.3 mg/dL (0.2-1.0) Aspartate Amino Transferase (AST) 19 U/L (13-40) Alanine Aminotransferase (ALT) 27 U/L (7-40) Alkaline Phosphatase 147 U/L (46-116) Troponin I High Sensitivity 79 ng/L (</=34) Total Protein 7.0 g/dL (5.7-8.2) Albumin 3.7 g/dL (3.2-4.8) Hepatitis B Surface Antigen Negative (Negative) Hepatitis C Antibody Negative (Negative) Direct Bilirubin 0.1 mg/dL (<0.3) Thyroid Stimulating Hormone (TSH) 0.56 uIU/mL (0.55-4.78) Test 01/10/25 17:38 Lactic Acid Level 1.1 mmol/L (0.4-2.0) B-Type Natriuretic Peptide 211.95 pg/mL (0-100) Other Laboratory Tests 01/12/25 05:11 Brief Hx & Hospital Course: Patient is 49 years old female with past medical history of CAD, status post PTCA x3 in November 2024 at [facility], history of CVA post PTCA, no residual, history of right inguinal incisional drainage with a complaint of chest pain. As per patient patient had a chest pain yesterday at home, sudden onset, mediastinal, 10/10 in severity, pressure-like, exacerbation or relieving factor. Pain was associated with some shortness of breaths. Patient also reported when she was standing up she felt dizzy and sweaty. Patient was some nausea but no vomiting. Patient denied any fever, cough, acute joint pain or swelling or sick contact change in vision. Initial lab workup revealed mild anemia with a hemoglobin 10.2, RDW 16.4, mildly elevated troponin I 98> 104> 101, BNP 211. Iron 17,% saturation 4.7, ferritin 7.8. UA leukocyte esterase 2+, WBC 6, bacteria few. CXR no acute cardiopulmonary disease, Doppler study of the lower extremity negative for DVT. Echo 2D on November, revealed-LVEF 25%, severe global dysfunction. seen by cardio, mikie gdmt and ranolazine. ambulating, symptoms improved. stable to dc.f/u with dr tsearns Condition at Discharge: Good Final Diagnosis/Problems List UTI acute HF exacerbation Discharge Disposition: Home Discharge Instruct/Medications Diet: Consistent carbohydrate, Cardiac 2g Na,low cholest Activity: No Restrictions, As Tolerated Follow Up/Referral: dr Stearns Discharge Statement: "Patient was advised to return to the ER or call 911 if any headaches, dizziness, shortness of breath, chest pain, abdominal pain, bleeding, fevers, or worsening of medical condition. Patient was counseled about treatment plan, medications, possible side effects, patientverbalized understanding. All questions were answered to the best of my ability. This discharge took greater then 30 minutes in planning, reviewing documentation, counseling the patient, and discussing with other team members." ASSESSMENT ASSESSMENT Assessment #Acute chest pain, # suspected substance abuse acute chest pain-patient's history of substance abuse # acute chest pain likely acute musculoskeletal pain-chest wall tenderness positive # NSTEMI type 2 likely due to demand lead # acute on chronicHFrEF, -# acute cystitis without end-organ damage - # CAD, S/P PTCA X3 at [facility] in October 2024 -# history of CVA, no residual weakness -# anemia likely iron-deficiency anemia -# obesity # history of substance abuse Date of Service: Jan 13, 2025 Billing Provider: KAROLYN SALEH MD Common Visit Codes: [id number] DISCH DAY >30min KAROLYN SALEH MD Jan 13, 2025 15:44
[2025-01-13 16:43] VITALS: BP 109/89; PULSE 82; RESP 18; TEMP 97.9; O2SAT 96
== END 2025-01-13 18:32 | disposition home or self-care (01) | DRG 194 ==
LOC: ER 17:12 → OVERFLOW 22:04 → TELE-EAST 22:09
PROVIDERS: ADMIT Student in an Organized Health Care Education/Training Program; ATTEND Student in an Organized Health Care Education/Training Program
DX: I13.0 Hypertensive heart and chronic kidney disease with heart failure and stage 1 through stage 4 chronic kidney disease, or unspecified chronic kidney disease (principal); I21.A1 Myocardial infarction type 2; E11.22 Type 2 diabetes mellitus with diabetic chronic kidney disease; D50.9 Iron deficiency anemia, unspecified; E66.9 Obesity, unspecified; F41.9 Anxiety disorder, unspecified; I95.89 Other hypotension; Z20.822 Contact with and (suspected) exposure to COVID-19; I50.23 Acute on chronic systolic (congestive) heart failure; R07.89 Other chest pain; I25.10 Atherosclerotic heart disease of native coronary artery without angina pectoris; N30.00 Acute cystitis without hematuria; N18.9 Chronic kidney disease, unspecified; K21.9 Gastro-esophageal reflux disease without esophagitis; Z68.33 Body mass index [BMI] 33.0-33.9, adult; Z79.84 Long term (current) use of oral hypoglycemic drugs; Z79.82 Long term (current) use of aspirin; Z86.73 Personal history of transient ischemic attack (TIA), and cerebral infarction without residual deficits; Z98.61 Coronary angioplasty status; Z82.5 Family history of asthma and other chronic lower respiratory diseases; Z82.49 Family history of ischemic heart disease and other diseases of the circulatory system; Z83.3 Family history of diabetes mellitus; Z88.3 Allergy status to other anti-infective agents; Z79.4 Long term (current) use of insulin
CPT/HCPCS: 36415; 71045; 80048; 80053; 80076; 80307; 80320; 81001; 82270; 82728; 82962; 83036; 83540; 83550; 83605; 83735; 83880; 84443; 84484; 85025; 86803; 87086; 87340; 87426; 87804; 93005; 93970; 97163; G0378; J1815

== ENCOUNTER 2025-01-24 02:00 | Inpatient (IN) | payer MEDICAID ==
[2025-01-24] VITALS (8 sets, daily range): BP systolic 98–116; BP diastolic 45–69; PULSE 72–81; RESP 16–19; TEMP 97.3–98.2; O2SAT 8–100
[~2025-01-24] VITALS: Ht 165.1 cm; Wt 40.9 kg
[~2025-01-24 02:00] MED LIST changes: -ACE650RS PR; +CEPH250C PO; +DIGO0.12 PO; +INSLANTI SC; +ISOS1TAB28 PO; -METO-289 PO; +MID10T PO; -OMEP20TA PO; -PRAV20TA3 PO; +RANO500T3 PO; +TICA90TA PO
--- NOTE | 2025-01-24 02:24 | ED.PDOC ---
History of Present Illness HPI Comments 49-year-old female with PMHx DM, HTN, HLD, CHF presents with a chief complaint of muscle pain x 1 hour onset. Patient states that she got up to use the restroom and noticed that her left leg was swollen and she had pain localized to the left lateral knee, radiating up her thigh. Patient denies injuries or trauma prior to onset of symptoms. Chief Complaint: Lower Extremity Time Seen by MD: 02:19 Reviewed Notes: Medications, Allergies Allergies: Coded Allergies: Ibuprofen (Unverified Allergy, Severe, anaphylaxis, 10/31/24) Home Meds Active Scripts Midodrine HCl (Midodrine HCl) 10 Mg Tab, 10 MG PO TID for 30 Days, #90 TAB Prov:KAROLYN SALEH MD 01/13/25 Cephalexin (KEFLEX CAPSULE) 250 Mg Cp, 1 CAP PO QID for 7 Days, #28 CAP Prov:KAROLYN SALEH MD 01/13/25 Reported Medications Insulin Glargine (Lantus) 100 Unit/Ml Inj, 100 UNIT SC, INJ 01/11/25 Ticagrelor Base (BRILINTA) 90 Mg Tab, 90 MG PO, TAB 01/11/25 Escitalopram Oxalate (Lexapro) 10 Mg Tab, 1 TAB PO DAILY, #90 TAB 3 Refills 11/02/24 Sitagliptin Phosphate (Januvia) 50 Mg Tab, 1 TAB PO DAILY, #30 TAB 5 Refills 11/02/24 Information Source: Patient Mode of Arrival: Wheelchair Severity: Moderate Timing: Hours Duration: Since onset Prehospital treatment: None Past Medical History PAST MEDICAL HISTORY: Anxiety, CHF, DM, High Lipids, HTN Surgical History: BTL [employer]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 Family History Family History: Reviewed,noncontributory to illness, Unknown Social History Smoker: Non-Smoker Alcohol: Denies ETOH Use Drugs: Denies Drug Use Lives In: Home Constitutional: denies: chills, diaphoresis, fatigue, fever, malaise, sweats, weakness, others EENTM: denies: blurred vision, double vision, ear bleeding, ear discharge, ear drainage, ear pain, ear ringing, eye pain, eye redness, hearing loss, mouth pain, mouth swelling, nasal discharge, nose bleeding, nose congestion, nose pain, photophobia, tearing, throat pain, throat swelling, voice changes, others Respiratory: denies: cough, hemoptysis, orthopnea, SOB at rest, shortness of breath, SOB with excertion, stridor, wheezing, others Cardiovascular: denies: chest pain, dizzy spells, diaphoresis, Dyspnea on exertion, edema, irregular heart beat, left arm pain, lightheadedness, palpitations, PND, syncope, others Gastrointestinal: denies: abdomen distended, abdominal pain, blood streaked bowels, constipated, diarrhea, dysphagia, difficulty swallowing, hematemesis, melena, nausea, poor appetite, poor fluid intake, rectal bleeding, rectal pain, vomiting, others Genitourinary: denies: abnormal vagina bleeding, burning, dyspareunia, dysuria, flank pain, frequency, hematuria, incontinence, pain, , vagina discharge, urgency, others Neurological: denies: dizziness, fainting, headache, left sided numbness, left sided weakness, numbness, paresthesia, pre-existing deficit, right sided numbness, right sided weakness, seizure, speech problems, tingling, tremors, weakness, others Musculoskeletal: reports: muscle pain; denies: back pain, gout, joint pain, joint swelling, muscle stiffness, neck pain, others Integumetry: denies: bruises, change in color, change in hair/nails, dryness, laceration, lesions, lumps, rash, wounds, others Allergic/Immunocompromised: denies: Difficulty Healing, Frequent Infections, Hives, Itching, others Hematologic/Lymphatic: denies: anemia, blood clots, easy bleeding, easy bruising, swollen glands, others Endocrine: denies: excessive hunger, excessive sweating, excessive thirst, excessive urination, flushing, intolerance to cold, intolerance to heat, unexplained weight gain, unexplained weight loss, others Psychiatric: denies: anxiety, bipolar disorder, depression, hopeless, panic disorder, schizophrenia, sleepless, suicidal, others All Other Systems: Reviewed and Negative Physical Exam General Appearance: No Apparent Distress, Normal HEENT: Normal ENT Inspection, Pharynx Normal, TMs Normal Neck: Full Range of Motion, Non-Tender, Normal, Normal Inspection Respiratory: Chest Non-Tender, Lungs Clear, No Accessory Muscle Use, No Respiratory Distress, Normal Breath Sounds Cardiovascular: No Edema, No JVD, No Murmur, No Gallop, Normal Peripheral Pulses, Regular Rate/Rhythm Breast Exam: Deferred Gastrointestinal: No Organomegaly, Non Tender, No Pulsatile Mass, Normal Bowel Sounds, Soft Genitalia: Deferred Pelvic: Deferred Rectal: Deferred Extremities: No calf tenderness, Normal capillary refill, Normal inspection, Normal range of motion, Non-tender, No pedal edema Musculoskeletal : Apperance: Normal Neurologic: Alert, flat hammerer II-XII nml as Tested, No Motor Deficits, Normal Affect, Normal Mood, No Sensory Deficits Cerebellar Function: Normal Reflexes: Normal Skin: Dry, Normal Color, Warm Lymphatic: No Adenopathy Was a procedure done? Was a procedure done?: No Differential Dx Considerations may include: Muscle strain, fracture, sprain, DVT X-Ray, Labs, Meds, VS Vital Signs Date Time Temp Pulse Resp B/P (MAP) Pulse Ox O2 Delivery O2 Flow Rate FiO2 01/24/25 02:10 98.4 87 16 123/58 (79) 98 98.4 Lab Test 01/24/25 02:29 Range/Units White Blood Count 3.9 L 4.4-10.8 10^3/uL Red Blood Count 4.32 4.0-5.20 10^6/uL Hemoglobin 9.7 L 12.2-16.2 g/dL Hematocrit 31.0 L 36.0-46.0 % Mean Corpuscular Volume 71.7 L 80.0-100.0 fL Mean Corpuscular Hemoglobin 22.3 L 28.0-32.0 pg Mean Corpuscular Hemoglobin Concent 31.1 L 32.0-36.0 g/dL Red Cell Distribution Width 17.5 H 11.8-14.3 % Platelet Count 381 140-450 10^3/uL Mean Platelet Volume 7.6 6.9-10.8 fL Neutrophils (%) (Auto) 51.5 37.0-80.0 % Lymphocytes (%) (Auto) 30.6 10.0-50.0 % Monocytes (%) (Auto) 10.7 0.0-12.0 % Eosinophils (%) (Auto) 6.3 0.0-7.0 % Basophils (%) (Auto) 0.9 0.0-2.0 % Neutrophils # (Auto) 2.0 1.6-8.6 10 ^3/uL Lymphocytes # (Auto) 1.2 0.4-5.4 10 ^3/uL Monocytes # (Auto) 0.4 0-1.3 10 ^3/uL Eosinophils # (Auto) 0.2 0-0.8 10 ^3/uL Basophils # (Auto) 0 0-0.2 10 ^3/uL Nucleated Red Blood Cells 0.2 % Prothrombin Time 10.3 9.3-11.8 sec Prothrombin Time INR 0.97 0.9-1.15 Activated Partial Thromboplast Time 28.7 24.5-34.5 SEC D-Dimer, Quantitative 0.37 0.0-0.49 mg/L FEU Sodium Level 133 L 136-145 mmol/L Potassium Level 4.5 3.5-5.1 mmol/L Chloride Level 101 98-107 mmol/L Carbon Dioxide Level 25 20-31 mmol/L Anion Gap 7 5-15 Blood Urea Nitrogen 19 9-23 mg/dL Creatinine 0.72 0.550-1.02 mg/dL Glomerular Filtration Rate Calc 103 >90 mL/min BUN/Creatinine Ratio 26.4 H 10.0-20.0 Serum Glucose 395 H 74-106 mg/dL Calcium Level 10.2 8.7-10.4 mg/dL Current Medications Medications (Trade) Dose Ordered Sig/Tori Route Start Time Stop Time Status Last Admin Acetaminophen (Tylenol Tablet) 650 mg ONCE ONCE PO 01/24/25 02:30 01/24/25 02:31 DC 01/24/25 02:40 Time of 1ST Reevaluation: 02:49 Reevaluation 1ST: Unchanged Patient Education/Counseling: Diagnosis, Treatment, Prognosis Family Education/Counseling: No Family Present Departure 1 Departure Time of Disposition: 04:30 (Patient with a left leg swelling concerning for possible DVT. We will get labs ultrasound and admit patient for further workup) Impression: Primary Impression: Left leg swelling Disposition: 09 ADMITTED INPATIENT Admit to: Med Surg Condition: Serious Critical Care Note Critical Care Time?: No Stability Stability form required: No Heart Score Heart Score: Heart Score Response (Comments) Value History N/A 0 EKG N/A 0 Age N/A 0 Risk Factors N/A 0 Troponin N/A 0 Total 0 I personally scribed for TWILA RUSSO MD ([email or web address]) on 01/24/25 at 02:24. Electronically submitted by Prosper [email or web address]). TWILA RUSSO MD Jan 24, 2025 02:24
[2025-01-24] MEDS: ACETAMINOPHEN 325 MG TAB PO ONE (02:40)
[2025-01-24 02:49] LABS: Basophils # (auto) 0 10 ^3/uL (0-0.2); Basophils % (auto) 0.9 % (0.0-2.0); Eosinophils # (auto) 0.2 10 ^3/uL (0-0.8); Eosinophils % (auto) 6.3 % (0.0-7.0); Hemoglobin 9.7 g/dL (12.2-16.2); Lymphocytes # (auto) 1.2 10 ^3/uL (0.4-5.4); Lymphocytes % (auto) 30.6 % (10.0-50.0); Mean Corpuscular Hemoglobin 22.3 pg (28.0-32.0); Mean Corpuscular Hgb Conc. 31.1 g/dL (32.0-36.0); Mean Corpuscular Volume 71.7 fL (80.0-100.0); Monocytes # (auto) 0.4 10 ^3/uL (0-1.3); Monocytes % (auto) 10.7 % (0.0-12.0); Neutrophils % (auto) 51.5 % (37.0-80.0); Nucleated Red Blood Cells % 0.2 %; Platelet Count (auto) 381 10^3/uL (140-450); Red Blood Cells 4.32 10^6/uL (4.0-5.20); Red Cell Distribution Width 17.5 % (11.8-14.3); White Blood Cell 3.9 10^3/uL (4.4-10.8)
[2025-01-24 02:55] LABS: Chloride 101 mmol/L (98-107); Potassium 4.5 mmol/L (3.5-5.1)
[2025-01-24 02:56] LABS: Anion Gap 7 (5-15); Calcium 10.2 mg/dL (8.7-10.4); Carbon Dioxide 25 mmol/L (20-31)
[2025-01-24 02:58] LABS: Sodium 133 mmol/L (136-145)
[2025-01-24 03:01] LABS: BUN/Creatinine Ratio 26.4 (10.0-20.0); Blood Urea Nitrogen 19 mg/dL (9-23)
[2025-01-24 03:05] LABS: INR 0.97 (0.9-1.15); Partial Thromboplastin Time 28.7 SEC (24.5-34.5); Prothrombin Time 10.3 sec (9.3-11.8)
--- NOTE | 2025-01-24 03:39 | DVH ---
EXAM: XY L KNEE 3V XRAY HISTORY: left leg pain COMPARISON: None TECHNIQUE: 3 views of the left knee were performed. FINDINGS: No acute fracture is identified about the left knee. No significant joint space narrowing. No evide nce of significant joint effusion. IMPRESSION: 1. Unremarkable radiographs of the left knee.
[2025-01-24 03:45] LABS: Glucose 395 mg/dL (74-106)
[2025-01-24] MEDS ORDERED: ONDANSETRON HCL 4 MG/2 ML VIAL IV PRN (05:00)
[2025-01-24] MEDS ORDERED: DEXTROSE (50%) 50ML SYRG IV PRN ×3 (05:00→22:45)
[2025-01-24] MEDS ORDERED: ACETAMINOPHEN 325 MG TAB PO PRN (05:00)
--- NOTE | 2025-01-24 05:05 | DVHHP2 ---
History of Present Illness Reason for Visit: Lower extremity swelling History of Present Illness 49-year-old female presents for evaluation of lower extremity swelling. Patient reports a one day history of noticing bilateral lower extremity swelling. She does have a history of congestive heart failure. Denies chest pain or shortness for breath. No trauma to the area. No other acute complaints reported. Past Medical History Diabetes mellitus, hypertension, dyslipidemia Past Surgical History BTL Family History Noncontributory Smoke: No ALCOHOL: none Drugs: None Lives: with Family Review of Systems Review of Systems Review of systems are currently negative otherwise addressed in HPI. Allergies: Coded Allergies: Ibuprofen (Unverified Allergy, Severe, anaphylaxis, 10/31/24) Exam Vital Signs Vital Signs Date Time Temp Pulse Resp B/P (MAP) Pulse Ox O2 Delivery O2 Flow Rate FiO2 01/24/25 02:10 98.4 87 16 123/58 (79) 98 98.4 Exam Gen: 49-year-old female in no apparent distress Skin: Warm, dry, normal color and texture, no rash. HEENT: Normocephalic atraumatic, mucous membranes moist and pink. Neck: Cervical and supraclavicular nodes normal without enlargement, trachea is midline, thyroid gland is normal without masses. Pulmonary: Clear to auscultation and percussion bilaterally. Cardiac: Regular rate and rhythm. No murmur Abdomen: Soft, nontender, nondistended, bowel sounds present all 4 quadrants, no guarding, no rigidity, no organomegaly. Extremities: No cyanosis, clubbing, plus two bilateral pedal edema Neuro: Cranial nerves II through XII grossly intact, normal affect and speech, no focal motor deficits. Labs/Xrays ORDERING PHYSICIAN: TWILA RUSSO MD PROCEDURE(s): LKNE3 - L KNEE 3V XRAY REASON: left leg pain ORDER NUMBER(s): [id number], ACCESSION NUMBER(s): [id number] EXAM: XY L KNEE 3V XRAY HISTORY: left leg pain COMPARISON: None TECHNIQUE: 3 views of the left knee were performed. FINDINGS: No acute fracture is identified about the left knee. No significant joint space narrowing. No evidence of significant joint effusion. IMPRESSION: 1. Unremarkable radiographs of the left knee. Labs Test 01/24/25 02:29 Range/Units White Blood Count 3.9 L 4.4-10.8 10^3/uL Red Blood Count 4.32 4.0-5.20 10^6/uL Hemoglobin 9.7 L 12.2-16.2 g/dL Hematocrit 31.0 L 36.0-46.0 % Mean Corpuscular Volume 71.7 L 80.0-100.0 fL Mean Corpuscular Hemoglobin 22.3 L 28.0-32.0 pg Mean Corpuscular Hemoglobin Concent 31.1 L 32.0-36.0 g/dL Red Cell Distribution Width 17.5 H 11.8-14.3 % Platelet Count 381 140-450 10^3/uL Mean Platelet Volume 7.6 6.9-10.8 fL Neutrophils (%) (Auto) 51.5 37.0-80.0 % Lymphocytes (%) (Auto) 30.6 10.0-50.0 % Monocytes (%) (Auto) 10.7 0.0-12.0 % Eosinophils (%) (Auto) 6.3 0.0-7.0 % Basophils (%) (Auto) 0.9 0.0-2.0 % Neutrophils # (Auto) 2.0 1.6-8.6 10 ^3/uL Lymphocytes # (Auto) 1.2 0.4-5.4 10 ^3/uL Monocytes # (Auto) 0.4 0-1.3 10 ^3/uL Eosinophils # (Auto) 0.2 0-0.8 10 ^3/uL Basophils # (Auto) 0 0-0.2 10 ^3/uL Nucleated Red Blood Cells 0.2 % Prothrombin Time 10.3 9.3-11.8 sec Prothrombin Time INR 0.97 0.9-1.15 Activated Partial Thromboplast Time 28.7 24.5-34.5 SEC D-Dimer, Quantitative 0.37 0.0-0.49 mg/L FEU Sodium Level 133 L 136-145 mmol/L Potassium Level 4.5 3.5-5.1 mmol/L Chloride Level 101 98-107 mmol/L Carbon Dioxide Level 25 20-31 mmol/L Anion Gap 7 5-15 Blood Urea Nitrogen 19 9-23 mg/dL Creatinine 0.72 0.550-1.02 mg/dL Glomerular Filtration Rate Calc 103 >90 mL/min BUN/Creatinine Ratio 26.4 H 10.0-20.0 Serum Glucose 395 H 74-106 mg/dL Calcium Level 10.2 8.7-10.4 mg/dL Assessment/Plan Assessment/Plan Assessment Possible CHF exacerbation Uncontrolled diabetes mellitus Morbid obesity Plan Admit the patient to Med surge to the hospitalist Echocardiogram pending Chest x-ray pending Bilateral extremity DVT study pending Resume home medications Continue treatment per orders. Plan discussed with: Patient My Orders Orders - XOCHILT STOUT Procedure Category Date Status Time Furosemide Injection PHA 01/24/25 Verified (Lasix Injection) 05:00 B-Type Natriuretic LAB 01/24/25 Verified Peptide 04:52 Furosemide Tablet PHA 01/24/25 Verified (Lasix Tablet) 10:00 Ticagrelor (Brilinta) PHA 01/24/25 Verified 10:00 Ranolazine (Ranexa Er) PHA 01/24/25 Verified 10:00 Basic Metabolic Panel LAB 01/25/25 Verified 04:00 Glucose Blood PHA 01/24/25 Verified (Accu-Chek Comfort 06:00 Mild Sliding Scale PHA 01/24/25 Verified Npo - Q6hr 06:00 Dextrose 50% Syringe PHA 01/24/25 Verified 05:00 Admit ADMIT 01/24/25 Verified 04:52 Ondansetron Hcl PHA 01/24/25 Verified (Zofran) 05:00 Cardiac DIET 01/24/25 Verified Diet-2gna,Lofat,Lochol Breakfast Echo 2d Mode Cardiac US 01/24/25 Verified DOP 04:52 Condition: Stable KYREE 01/24/25 Verified 04:52 Acetaminophen Tablet PHA 01/24/25 Verified (Tylenol Tablet) 05:00 Bedrest With Bathroom KYREE 01/24/25 Verified Privileg 04:52 Bilat Lower Dvt US 01/24/25 Verified 04:52 Chest Xray 1 View XY 01/24/25 Verified 04:52 Date of Service: Jan 24, 2025 Billing Provider: XOCHILT STOUT Common Visit Codes: [id number] INP/OBS CARE (MOD) XOCHILT STOUT Jan 24, 2025 05:05
[2025-01-24] MEDS: ACCU-CHEK COMFORT CURVE STRIP VI SCH ×2 (06:11→11:30)
[2025-01-24] MEDS: InsuLIN REG 1unit/0.01ml Soln (100units/ml) SC SCH ×4 (06:16→22:17)
[2025-01-24] MEDS ORDERED: PRAV20TA3 PO (06:23)
[2025-01-24] MEDS ORDERED: OMEP20TA PO (06:23)
[2025-01-24] MEDS ORDERED: ASPI1TAB20 PO (06:23)
[2025-01-24] MEDS ORDERED: METO-289 PO (06:23)
--- NOTE | 2025-01-24 06:37 | DVH ---
EXAM: XR Chest, 1 View CLINICAL INDICATION: chf TECHNIQUE: Frontal view of the chest. COMPARISON: XY CHEST PORTABLE on DOS: 01/10/25 FINDINGS: LUNGS AND PLEURAL SPACES: Unremarkable. No consolidation. No pneumothorax. HEART: Unremarkable. No cardiomegaly. MEDIASTINUM: Unremarkable. Normal mediastinal contour. BONES/JOINTS: Unremarkable. No acute fracture. OTHER FINDINGS: . None. IMPRESSION: No acute cardiopulmonary process.
[2025-01-24] MEDS: FUROSEMIDE 20 MG/2 ML VIAL IV ONE (06:49)
--- NOTE | 2025-01-24 07:14 | DVHPNRES ---
Progress Note Date Seen: Jan 24, 2025 Resident Creating Document: SANKET CRAIG RESIDENT Has the PT tested + for MRSA If YES, has PT been informed?: No Medical Necessity Reason Pt with a Central, PICC or Fol: No Medical Necessity Reason History of Present Illness 49-year-old female presents for evaluation of lower extremity swelling. Patient reports a one day history of noticing bilateral lower extremity swelling. She does have a history of congestive heart failure. Denies chest pain or shortness for breath. No trauma to the area. No other acute complaints reported. Past Medical History: Diabetes mellitus, hypertension, dyslipidemia Past Surgical History:BTL Family History: Noncontributory Social History: History of substance use dependency, smoke nd alcohol, But quit a long time ago, and lives with family PN 01/24/2025 Patient is a 49 year old female with recent history of CAD, S/P PTCA X3 (LLM 10/2024), CVA, no residual weakness, acute on chronic HFrEF, and a recent UTI who presented to the ED with a chief complaints of bilateral lower extremity pain after walking few blocks. Patient feels pains in her calf region after a walk. She denies fever, chills,trauma, but has some nausea but no vomiting. Patient was recently admitted for UTI and completing her antibiotics. Her A1c is 9.4 and her fasting blood this am was 406 at 9am. AT home patient takes insulin 15 units at night and 15 unit in the day. Most recent Echo showed and ejection fraction of 25% and she is hypotensive at baseline. Labs today shows BNP of 158 and chest x ray No acute cardiopulmonary process. Arterial doppler revealed Approximately 50-75% stenosis of the right common femoral artery, right deep femoral artery, proximal superficial femoral artery. Venous duplex was negative for DVT in the lower extremities. Subjective Review of Systems Constitutional: Denies fever no chills no feeling of malaise HEENT: Denies headache, ear pain, ear discharges, conjunctivitis, nasal discharge throat pain Cardiovascular: Denies chest pain, palpitation, orthopnea, PND, or pedal edema Respiratory: Denies shortness of breath, cough cough, sputum production, hemoptysis, GI: Denies abdominal pain, nausea, vomiting, diarrhea, hematemesis, hematochezia, : Denies frequency, urgency, hematuria, Endocrine: Denies unintentional weight gain or weight loss, feeling of hot flashes, Brijesh: Denies easy bruising, bleeding disorders, epistaxis Musculoskeletal: bilateral lower extremity pain in slight touch. Psych: No evidence of depression, cosmo, suicidal ideation Objective vital signs Vital Sign Date Time Temp Pulse Resp B/P (MAP) Pulse Ox O2 Delivery O2 Flow Rate FiO2 01/24/25 06:49 107/66 01/24/25 06:28 97.9 75 18 97 97.9 medications Current Medications Medications Dose Ordered Sig/Tori Route Start Time Stop Time Status Last Admin Dose Admin Furosemide 20 mg DAILY PO 01/24/25 10:00 Ticagrelor 90 mg BID PO 01/24/25 10:00 Ranolazine 500 mg BID PO 01/24/25 10:00 Diagnostic Test (Pha) 1 strip Q6HR 01/24/25 06:00 01/24/25 06:11 1 STRIP Insulin Human Regular Q6HR SC 01/24/25 06:00 01/24/25 06:16 8 UNITS Dextrose 50 ml UD PRN IV 01/24/25 05:00 Ondansetron HCl 4 mg Q4HP PRN IV 01/24/25 05:00 Acetaminophen 650 mg Q6HP PRN PO 01/24/25 05:00 Examination General Appearance: Alert, Oriented X3, Cooperative, No acute distress, missing teeth HEENT: Atraumatic, PERRLA, EOMI, Mucous membrane moist/pink Respiratory: Clear to auscultation, Normal air movement Cardiovascular: Regular rate, Normal S1, Normal S2, No murmurs, no chest wall tenderness Abdominal: NO distention, no tenderness, bowel sounds present, no scars noted Extremities: Lower extremities tenderness R> L, Skin: No rashes, No breakdown, No significant lesion Neuro: Normal gait, Normal speech, Strength at 5/5 X4 ext, Normal tone, Sensation intact, Cranial nerves 3-12 NL, Reflexes 2+ Psych/Mental Status: Mental status NL, Mood NL laboratory and microbiology Laboratory Tests 01/24/25 02:29 Test 01/24/25 02:29 Range/Units Serum Glucose 395 H 74-106 mg/dL Problem List/Assessment/Plan Problem List/Assessment/Plan Assessment Bilateral Lower extremity tenderness on walking --> Rule out PAD --> Arterial doppler ordered --> Consult vascular team Uncontrolled Diabetes --> A1c: 9.7 --> blood sugar: 406 --> Lantus 15 unit; regular insulin 5 units TID ;with correction one time dose of 5 unit CAD, S/P PTCA X3 at [facility] in October 2024 --> Continue DAPT Cystitis on antibiotics --> Finishing Keflex Chronic HFrEF --> Echo 11/2024: 25% --> Continue furosemide 20 mg --> No GDMT because of cystitis and baseline low blood pressure History of CVA, no residual weakness --> Continue atorvastatin Obesity grade 1 --> BMI 34.6 History of substance abuse --> Clean for few years Goal of care discussed for 20 minutes: Full codes Case and plan discussed + Dr. Saleh Plan discussed with: Patient Date of Service: Jan 24, 2025 Billing Provider: KAROLYN SALEH MD Common Visit Codes: [id number] INP/OBS CARE(HIGH) SANKET CRAIG RESIDENT Jan 24, 2025 07:13 KAROLYN SALEH MD Jan 25, 2025 13:18
--- NOTE | 2025-01-24 08:13 | DVH ---
BILATERAL LOWER EXTREMITY VENOUS DOPPLER CLINICAL HISTORY: r/o dvt Technique: Duplex Doppler evaluation of the deep venous systems of both lower extremities from the co mmon femoral veins to the popliteal veins including color Doppler and spectral/pulsed waveform analys is was performed. COMPARISON: US BILAT LOWER DVT on DOS: 01/10/25, US BILAT LOWER DVT on DOS: 11/01/24 FINDINGS: The right and left common femoral, superficial femoral, popliteal, posterior tibial veins and trifur cations appear patent with normal augmentation, phasicity, compressibility and color-flow. IMPRESSION: 1. There is no sonographic evidence for DVT in the lower extremities. HS:Y
[2025-01-24] MEDS: FUROSEMIDE 20 MG TAB PO SCH (08:17)
[2025-01-24] MEDS: RANOLAZINE ER 500 MG TAB PO SCH (08:33)
[2025-01-24] MEDS: TICAGRELOR 90 MG TAB PO SCH (08:33)
[2025-01-24] MEDS: INSULIN LANTUS (GLARGINE) 1 /0.01ml (100units/ml) SC SCH (09:15)
[2025-01-24] MEDS: MIDODRINE HCL 10 MG TAB PO SCH (13:50)
--- NOTE | 2025-01-24 15:55 | DVH ---
BILATERAL Lower Extremity Arterial Duplex Date: 01/24/2025 02:06 PM Clinical History: Poss PAD Comparison: None Technique: Duplex Doppler evaluation including color Doppler and spectral/pulsed waveform analysis of the lower extremity arteries was performed. Finding: RIGHT: Peak systolic velocities are as follows: NICKEL OPERATOR 316 cm/s Deep femoral 267 cm/s SFA proximal 223 cm/s SFA mid-portion 147 cm/s SFA distal 156 cm/s Popliteal 98 cm/s Posterior tibial 50 cm/s Anterior tibial 59 cm/s Dorsalis pedis 73 cm/s The waveforms are triphasic with diastolic flow. LEFT: Peak systolic velocities are as follows: NICKEL OPERATOR 155 cm/s Deep femoral 105 cm/s SFA proximal 146 cm/s SFA mid-portion 130 cm/s SFA distal 92 cm/s Popliteal 92 cm/s Posterior tibial 76 cm/s Anterior tibial 90 cm/s Dorsalis pedis 94 cm/s The waveforms are triphasic with diastolic flow. REFERENCE VALUES, [facility]) vascular Imaging Lab Criteria: Peak systolic velocity ranges (in cm/sec) are as follows: <150 cm/s - <20 % stenosis 150-200 cm/s - 20-49% stenosis 200-300 cm/s - 50-75% stenosis >300 cm/s -> 75% stenosis IMPRESSION: Approximately 50-75% stenosis of the right common femoral artery, right deep femoral artery, proximal superficial femoral artery.
[2025-01-24] MEDS: ACETAMINOPHEN 325 MG TAB PO PRN (16:59)
[2025-01-24] MEDS: InsuLIN REG 1unit/0.01ml Soln (100units/ml) SC ONE (17:02)
[2025-01-24] MEDS: PREGABALIN 25 MG CAP PO ONE (22:14)
[2025-01-25] VITALS (7 sets, daily range): BP systolic 96–121; BP diastolic 42–62; PULSE 68–95; RESP 16–19; TEMP 97.7–98.5; O2SAT 93–99
[2025-01-25 05:53] LABS: Chloride 106 mmol/L (98-107); Potassium 4.4 mmol/L (3.5-5.1); Sodium 138 mmol/L (136-145)
[2025-01-25 05:54] LABS: Anion Gap 9 (5-15); Calcium 9.9 mg/dL (8.7-10.4); Carbon Dioxide 23 mmol/L (20-31)
[2025-01-25 05:59] LABS: Glucose 167 mg/dL (74-106)
[2025-01-25] MEDS: ACCU-CHEK COMFORT CURVE STRIP VI SCH (06:05)
[2025-01-25 06:31] LABS: BUN/Creatinine Ratio 24.6 (10.0-20.0); Blood Urea Nitrogen 16 mg/dL (9-23)
[2025-01-25 07:47] LABS: Basophils # (auto) 0 10 ^3/uL (0-0.2); Eosinophils # (auto) 0.2 10 ^3/uL (0-0.8); Eosinophils % (auto) 6.8 % (0.0-7.0); Hematocrit 31.8 % (36.0-46.0); Hemoglobin 9.9 g/dL (12.2-16.2); Lymphocytes # (auto) 1.3 10 ^3/uL (0.4-5.4); Lymphocytes % (auto) 35.1 % (10.0-50.0); Mean Corpuscular Hemoglobin 22.2 pg (28.0-32.0); Mean Corpuscular Hgb Conc. 31.3 g/dL (32.0-36.0); Monocytes # (auto) 0.4 10 ^3/uL (0-1.3); Monocytes % (auto) 10.7 % (0.0-12.0); Neutrophils # (auto) 1.7 10 ^3/uL (1.6-8.6); Neutrophils % (auto) 46.4 % (37.0-80.0); Nucleated Red Blood Cells % 0.2 %; Platelet Count (auto) 361 10^3/uL (140-450); Red Blood Cells 4.48 10^6/uL (4.0-5.20); Red Cell Distribution Width 17.5 % (11.8-14.3); White Blood Cell 3.6 10^3/uL (4.4-10.8)
[2025-01-25] MEDS: INSULIN LISPRO (HUMAN) 100 UNITS/ML ML SC SCH (11:12)
--- NOTE | 2025-01-25 11:59 | DVHPNRES ---
Progress Note Date Seen: Jan 25, 2025 Resident Creating Document: SANKET CRAIG RESIDENT Has the PT tested + for MRSA If YES, has PT been informed?: No Medical Necessity Reason Pt with a Central, PICC or Fol: No Medical Necessity Reason History of Present Illness 49-year-old female presents for evaluation of lower extremity swelling. Patient reports a one day history of noticing bilateral lower extremity swelling. She does have a history of congestive heart failure. Denies chest pain or shortness for breath. No trauma to the area. No other acute complaints reported. Past Medical History: Diabetes mellitus, hypertension, dyslipidemia Past Surgical History:BTL Family History: Noncontributory Social History: History of substance use dependency, smoke nd alcohol, But quit a long time ago, and lives with family PN 01/24/2025 Patient is a 49 year old female with recent history of CAD, S/P PTCA X3 (LLM 10/2024), CVA, no residual weakness, acute on chronic HFrEF, and a recent UTI who presented to the ED with a chief complaints of bilateral lower extremity pain after walking few blocks. Patient feels pains in her calf region after a walk. She denies fever, chills,trauma, but has some nausea but no vomiting. Patient was recently admitted for UTI and completing her antibiotics. Her A1c is 9.4 and her fasting blood this am was 406 at 9am. AT home patient takes insulin 15 units at night and 15 unit in the day. Most recent Echo showed and ejection fraction of 25% and she is hypotensive at baseline. Labs today shows BNP of 158 and chest x ray No acute cardiopulmonary process. Arterial doppler revealed Approximately 50-75% stenosis of the right common femoral artery, right deep femoral artery, proximal superficial femoral artery. Venous duplex was negative for DVT in the lower extremities. PN 01/25/2025 Patient seen and examined. She lying in bed comfortable but complained of fatigued. Patient blood works are better today. Patient is now on lantus 15 unit at night and lispro 5 unit with eat meal. FBS today was 167. Patient is also on Ticagrelor and aspirin and Ranolazine. No side effects reported. Arterial duplex scan revealed Approximately 50-75% stenosis of the right common femoral artery, right deep femoral artery, proximal superficial femoral artery.Currently pending vascular consult evaluation. Subjective Review of Systems Constitutional: Denies fever no chills, just fatigued HEENT: Denies headache, ear pain, ear discharges, conjunctivitis, nasal discharge throat pain Cardiovascular: Denies chest pain, palpitation, orthopnea, PND, or pedal edema Respiratory: Denies shortness of breath, cough cough, sputum production, hemoptysis, GI: Denies abdominal pain, nausea, vomiting, diarrhea, hematemesis, hematochezia, : Denies frequency, urgency, hematuria, Endocrine: Denies unintentional weight gain or weight loss, feeling of hot flashes, Brijesh: Denies easy bruising, bleeding disorders, epistaxis Musculoskeletal: Denies joint pains, muscle aches, leg pains Psych: No evidence of depression, cosmo, suicidal ideation Objective vital signs Vital Sign Date Time Temp Pulse Resp B/P (MAP) Pulse Ox O2 Delivery O2 Flow Rate FiO2 01/25/25 09:31 118/71 01/25/25 08:10 Room Air* 0 21 01/25/25 08:00 98.4 68 16 99 98.4 Total Intake and Output 01/24/25 01/24/25 01/25/25 15:00 23:00 07:00 Intake Total 800 ml Balance 800 ml medications Current Medications Medications Dose Ordered Sig/Tori Route Start Time Stop Time Status Last Admin Dose Admin Furosemide 20 mg DAILY PO 01/24/25 10:00 01/25/25 09:31 20 MG Ticagrelor 90 mg BID PO 01/24/25 10:00 01/25/25 09:31 90 MG Ranolazine 500 mg BID PO 01/24/25 10:00 01/25/25 09:31 500 MG Ondansetron HCl 4 mg Q4HP PRN IV 01/24/25 05:00 Acetaminophen 650 mg Q6HP PRN PO 01/24/25 05:00 Cancel Insulin Glargine 15 units QAM SC 01/24/25 09:15 01/25/25 06:11 15 UNITS Midodrine 10 mg TID@0600,1200,1800 PO 01/24/25 12:00 01/25/25 05:58 10 MG Acetaminophen 650 mg Q6HP PRN PO 01/24/25 16:00 01/24/25 16:59 650 MG Diagnostic Test (Pha) 1 strip ACHS 01/25/25 07:00 01/25/25 11:11 1 STRIP Dextrose 50 ml UD PRN IV 01/24/25 22:45 Insulin Human Lispro 5 units AC SC 01/25/25 11:30 Examination General Appearance: Alert, Oriented X3, Cooperative, No acute distress HEENT: Atraumatic, PERRLA, EOMI, Mucous membrane moist/pink Respiratory: Clear to auscultation, Normal air movement Cardiovascular: Regular rate, Normal S1, Normal S2, No murmurs, no chest wall tenderness Abdominal: NO distention, no tenderness, bowel sounds present, no scars noted Extremities: No clubbing, No cyanosis, No edema, Normal pulses, No tenderness/swelling Skin: No rashes, No breakdown, No significant lesion Neuro: Normal gait, Normal speech, Sensation intact, Cranial nerves 3-12 NL, Reflexes 2+, tender on ambulation Psych/Mental Status: Mental status NL, Mood NL laboratory and microbiology Laboratory Tests 01/25/25 05:16 Test 01/25/25 05:16 Range/Units Serum Glucose 167 H 74-106 mg/dL Problem List/Assessment/Plan Problem List/Assessment/Plan Assessment Bilateral Lower extremity tenderness on walking --> Rule out PAD --> Arterial duplex scan: Approximately 50-75% stenosis of the right common femoral artery, right deep femoral artery, proximal superficial femoral artery. --> vascular consult pending Uncontrolled Diabetes --> A1c: 9.7 --> FBS: 167 today --> Lantus 15 unit; lispro 5 units TID, glucose check prior administering the next unit CAD, S/P PTCA X3 at [facility] in October 2024 --> Continue DAPT Cystitis on antibiotics --> Finishing Keflex Chronic HFrEF --> Echo 11/2024: 25% --> Continue furosemide 20 mg --> No GDMT because of cystitis and baseline low blood pressure History of CVA, no residual weakness --> Continue atorvastatin Obesity grade 1 --> BMI 34.6 History of substance abuse --> Clean for few years For discharge tomorrow 01/26/2025 Goal of care discussed for 150 minutes: Full codes Case and plan discussed + Dr. Saleh Plan discussed with: Patient My Orders My Orders Orders - SANKET CRAIG RESIDENT Procedure Category Date Status Time Bilat Low Ext Art US 01/24/25 Resulted Duplex 11:56 * Cardiology Consult CONS 01/24/25 Transmitted 11:58 Midodrine Tablet PHA 01/24/25 In Process (Proamatine Tablet) 12:00 Drug Screen LAB 01/24/25 Logged 14:22 Acetaminophen Tablet PHA 01/24/25 In Process (Tylenol Tablet) 16:00 Date of Service: Jan 25, 2025 Billing Provider: KAROLYN SALEH MD Common Visit Codes: [id number] INP/OBS CARE(HIGH) SANKET CRAIG RESIDENT Jan 25, 2025 11:59 KAROLYN SALEH MD Jan 25, 2025 13:20
[2025-01-25 15:40] LABS: Urine Bacteria FEW /hpf (None Seen); Urine Blood Negative /uL (Negative); Urine Clarity Clear (Clear); Urine Color Light-Yellow (Yellow); Urine Protein, UAD Negative (Negative); Urine Specific Gravity 1.019 (1.001-1.035); Urine Squamous Epithelial Cell None Seen /hpf (<5); Urine Urobilinogen Normal (Negative); Urine WBC 3 /HPF (0-5); Urine pH 6.5 (5.0-9.0)
[2025-01-25 16:00] LABS: Amphetamine Screen, Urine Neg (NEGATIVE); Barbiturate Scree,Urine Neg (NEGATIVE); Benzodiazephine Screen, Urine Neg (NEGATIVE); Cannabinoid Screen, Urine Neg (NEGATIVE); Cocaine Screen, Urine Neg (NEGATIVE); Opiate Scree,Urine Neg (NEGATIVE); Phencyclidine Screen, Urine Neg (NEGATIVE)
[2025-01-25] MEDS ORDERED: DEXTROSE (50%) 50ML SYRG IV PRN (22:15)
[2025-01-25] MEDS: InsuLIN REG 1unit/0.01ml Soln (100units/ml) SC SCH (23:21)
[2025-01-26 01:00] VITALS: BP 107/52; PULSE 82; RESP 17; TEMP 97.9; O2SAT 96
[2025-01-26 05:00] VITALS: BP 126/54; PULSE 77; RESP 17; TEMP 97.9; O2SAT 94
[2025-01-26] MEDS: InsuLIN REG 1unit/0.01ml Soln (100units/ml) SC SCH (06:31)
[2025-01-26 07:56] VITALS: BP 111/67; PULSE 77; RESP 16; TEMP 97.8; O2SAT 100
[2025-01-26] MEDS: ASPirin-EC 81 mg tab PO SCH (10:24)
[2025-01-26] MEDS: INSULIN LISPRO (HUMAN) 100 UNITS/ML ML SC SCH (11:04)
--- NOTE | 2025-01-26 11:38 | DVHDS2 ---
Discharge Summary Date of Admission Jan 24, 2025 at 04:52 Date of Discharge: Jan 26, 2025 Labs/Diagnostic Data: Laboratory Results Test 01/26/25 06:12 01/25/25 15:32 01/25/25 05:16 01/24/25 02:29 POC Glucose 269 mg/dl (70-106) Urine Color Light-yellow (Yellow) Urine Clarity Clear (Clear) Urine pH 6.5 (5.0-9.0) Urine Specific [place] 1.019 (1.001-1.035) Urine Protein Negative (Negative) Urine Ketones Negative (Negative) Urine Blood Negative /uL (Negative) Urine Nitrite Negative (Negative) Urine Bilirubin Negative (Negative) Urine Urobilinogen Normal mg/dL (Negative) Urine Leukocyte Esterase Negative /uL (Negative) Urine RBC 1 /hpf (0 - 4) Urine Microscopic WBC 3 /HPF (0-5) Urine Squamous Epithelial Cells None seen /hpf (<5) Urine Bacteria Few /hpf (None Seen) Urine Glucose 4+ mg/dL (Normal) Urine Opiates Screen Neg (NEGATIVE) Urine Fentanyl Screen Neg (NEGATIVE) Urine Barbiturates Screen Neg (NEGATIVE) Urine Phencyclidine Screen Neg (NEGATIVE) Urine Amphetamines Screen Neg (NEGATIVE) Urine Benzodiazepines Screen Neg (NEGATIVE) Urine Cocaine Screen Neg (NEGATIVE) Urine Cannabinoids Screen Neg (NEGATIVE) White Blood Count 3.6 10^3/uL (4.4-10.8) Red Blood Count 4.48 10^6/uL (4.0-5.20) Hemoglobin 9.9 g/dL (12.2-16.2) Hematocrit 31.8 % (36.0-46.0) Mean Corpuscular Volume 71.0 fL (80.0-100.0) Mean Corpuscular Hemoglobin 22.2 pg (28.0-32.0) Mean Corpuscular Hemoglobin Concent 31.3 g/dL (32.0-36.0) Red Cell Distribution Width 17.5 % (11.8-14.3) Platelet Count 361 10^3/uL (140-450) Mean Platelet Volume 7.4 fL (6.9-10.8) Neutrophils (%) (Auto) 46.4 % (37.0-80.0) Lymphocytes (%) (Auto) 35.1 % (10.0-50.0) Monocytes (%) (Auto) 10.7 % (0.0-12.0) Eosinophils (%) (Auto) 6.8 % (0.0-7.0) Basophils (%) (Auto) 1.0 % (0.0-2.0) Neutrophils # (Auto) 1.7 10 ^3/uL (1.6-8.6) Lymphocytes # (Auto) 1.3 10 ^3/uL (0.4-5.4) Monocytes # (Auto) 0.4 10 ^3/uL (0-1.3) Eosinophils # (Auto) 0.2 10 ^3/uL (0-0.8) Basophils # (Auto) 0 10 ^3/uL (0-0.2) Nucleated Red Blood Cells 0.2 % Sodium Level 138 mmol/L (136-145) Potassium Level 4.4 mmol/L (3.5-5.1) Chloride Level 106 mmol/L (98-107) Carbon Dioxide Level 23 mmol/L (20-31) Anion Gap 9 (5-15) Blood Urea Nitrogen 16 mg/dL (9-23) Creatinine 0.65 mg/dL (0.550-1.02) Glomerular Filtration Rate Calc 109 mL/min (>90) BUN/Creatinine Ratio 24.6 (10.0-20.0) Serum Glucose 167 mg/dL (74-106) Calcium Level 9.9 mg/dL (8.7-10.4) Prothrombin Time 10.3 sec (9.3-11.8) Prothrombin Time INR 0.97 (0.9-1.15) Activated Partial Thromboplast Time 28.7 SEC (24.5-34.5) D-Dimer, Quantitative 0.37 mg/L FEU (0.0-0.49) B-Type Natriuretic Peptide 158.24 pg/mL (0-100) Other Laboratory Tests 01/25/25 05:16 Brief Hx & Hospital Course: 49-year-old female presents for evaluation of lower extremity swelling. Patient reports a one day history of noticing bilateral lower extremity swelling. She does have a history of congestive heart failure. Denies chest pain or shortness for breath. No trauma to the area. No other acute complaints reported. Patient is a 49 year old female with recent history of CAD, S/P PTCA X3 (LLM 10/2024), CVA, no residual weakness, acute on chronic HFrEF, and a recent UTI who presented to the ED with a chief complaints of bilateral lower extremity pain after walking few blocks. Patient feels pains in her calf region after a walk. She denies fever, chills,trauma, but has some nausea but no vomiting. Patient was recently admitted for UTI and completing her antibiotics. Her A1c is 9.4 and her fasting blood this am was 406 at 9am. AT home patient takes insulin 15 units at night and 15 unit in the day. Most recent Echo showed and ejection fraction of 25% and she is hypotensive at baseline. Labs today shows BNP of 158 and chest x ray No acute cardiopulmonary process. Arterial doppler revealed Approximately 50-75% stenosis of the right common femoral artery, right deep femoral artery, proximal superficial femoral artery. Venous duplex was negative for DVT in the lower extremities. Patient seen and examined. She lying in bed comfortable but complained of fatigued. Patient blood works are better today. Patient is now on lantus 15 unit at night and lispro 5 unit with eat meal. FBS today was 167. Patient is also on Ticagrelor and aspirin and Ranolazine. No side effects reported. Arterial duplex scan revealed Approximately 50-75% stenosis of the right common femoral artery, right deep femoral artery, proximal superficial femoral artery. dr stearns wants to see pt in clinic in a week Condition at Discharge: Good Final Diagnosis/Problems List PAD DM with hyperglycemia Discharge Disposition: Home Discharge Instruct/Medications Diet: Consistent carbohydrate, Cardiac 2g Na,low cholest Activity: No Restrictions, As Tolerated Follow Up/Referral: dr stearns Discharge Statement: "Patient was advised to return to the ER or call 911 if any headaches, dizziness, shortness of breath, chest pain, abdominal pain, bleeding, fevers, or worsening of medical condition. Patient was counseled about treatment plan, medications, possible side effects, patientverbalized understanding. All questions were answered to the best of my ability. This discharge took greater then 30 minutes in planning, reviewing documentation, counseling the patient, and discussing with other team members." ASSESSMENT ASSESSMENT Assessment Bilateral Lower extremity tenderness on walkingfrom PAD Uncontrolled Diabetes CAD, S/P PTCA X3 at [facility] in October 2024 Cystitis on antibiotics Chronic HFrEF History of CVA, no residual weakness Obesity grade 1 History of substance abuse Date of Service: Jan 26, 2025 Billing Provider: KAROLYN SALEH MD Common Visit Codes: [id number]/[id number] DISCH DAY >30min KAROLYN SALEH MD Jan 26, 2025 11:38
[2025-01-26 11:40] VITALS: BP 110/68; PULSE 92; RESP 16; TEMP 97.9; O2SAT 100
[2025-01-26 12:20] VITALS: BP 107/54; TEMP 36.6
--- NOTE | 2025-01-27 19:37 | DVHINCON2 ---
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 Patient states that she got up to use the restroom and noticed that her left leg was swollen and she had pain localized to the left lateral knee, radiating up her thigh. Patient denies injuries or trauma prior to onset of symptoms. HGB 9.9, HCT 31.8, GLUC 269. Left knee x-ray is unremarkable. Chest x-ray showed NAD. Patient was admitted to the hospital. I am asked to consult on this patient. Family History: Diabetes mellitus G8 MOTHER FH: COPD (chronic obstructive pulmonary disease) G8 MOTHER FH: hepatic cirrhosis G8 MOTHER Hypertension G8 MOTHER Allergies: Coded Allergies: Ibuprofen (Unverified Allergy, Severe, anaphylaxis, 10/31/24) Home Meds Active Scripts Midodrine HCl (Midodrine HCl) 10 Mg Tab, 10 MG PO TID for 30 Days, #90 TAB Prov:KAROLYN SALEH MD 01/13/25 Cephalexin (KEFLEX CAPSULE) 250 Mg Cp, 1 CAP PO QID for 7 Days, #28 CAP Prov:KAROLYN SALEH MD 01/13/25 Reported Medications Ranolazine (Ranolazine ER) 500 Mg Tab, 1 TAB PO BID PRN for 30 Days, #60 01/25/25 Omeprazole (Gnp Omeprazole) 20 Mg Tab, 1 TAB PO DAILY, #90 TAB 1 Refill 01/24/25 Pravastatin Sodium (PRAVACHOL TABLET) 20 Mg Tb, 1 TAB PO DAILY, #30 TAB 5 Refills 01/24/25 Aspirin (Aspir-81) 81 Mg Tab, 1 TAB PO DAILY, #30 TAB 5 Refills 01/24/25 Insulin Glargine (Lantus) 100 Unit/Ml Inj, 100 UNIT SC, INJ 01/11/25 Ticagrelor Base (BRILINTA) 90 Mg Tab, 90 MG PO, TAB 01/11/25 Escitalopram Oxalate (Lexapro) 10 Mg Tab, 1 TAB PO DAILY, #90 TAB 3 Refills 11/02/24 Sitagliptin Phosphate (Januvia) 50 Mg Tab, 1 TAB PO DAILY, #30 TAB 5 Refills 11/02/24 Discontinued Reported Medications Isosorbide Mononitrate (Isosorbide Mononitrate Er) 30 Mg Tab, 1 TAB PO DAILY for 90 Days, #90 01/25/25 Digoxin (Digoxin) 125 Mcg Tab, 1 TAB PO EOD for 60 Days, #27 01/25/25 Empagliflozin (Jardiance) 10 Mg Tab, 1 TAB PO DAILY for 30 Days, #30 01/24/25 Metoprolol Succinate (Metoprolol Succinate Er) 50 Mg Tab, 1 TAB PO DAILY, #30 TAB 5 Refills 01/24/25 Review of Systems Constitutional: denies: chills, diaphoresis, fatigue, fever, malaise, sweats, weakness, others EENTM: denies: blurred vision, double vision, ear bleeding, ear discharge, ear drainage, ear pain, ear ringing, eye pain, eye redness, hearing loss, mouth pain, mouth swelling, nasal discharge, nose bleeding, nose congestion, nose pain, photophobia, tearing, throat pain, throat swelling, voice changes, others Respiratory: denies: cough, hemoptysis, orthopnea, SOB at rest, shortness of breath, SOB with excertion, stridor, wheezing, others Cardiovascular: denies: chest pain, dizzy spells, diaphoresis, Dyspnea on exertion, edema, irregular heart beat, left arm pain, lightheadedness, pa lpitations, PND, syncope, others Gastrointestinal: denies: abdomen distended, abdominal pain, blood streaked bowels, constipated, diarrhea, dysphagia, difficulty swallowing, hematemesis, melena, nausea, poor appetite, poor fluid intake, rectal bleeding, rectal pain, vomiting, others Genitourinary: denies: abnormal vagina bleeding, burning, dyspareunia, dysuria, flank pain, frequency, hematuria, incontinence, pain, , vagina discharge, urgency, others Neurological: denies: dizziness, fainting, headache, left sided numbness, left sided weakness, numbness, paresthesia, pre-existing deficit, right sided numbness, right sided weakness, seizure, speech problems, tingling, tremors, weakness, others Musculoskeletal: reports: muscle pain; denies: back pain, gout, joint pain, shereen nt swelling, muscle stiffness, neck pain, others Integumetry: denies: bruises, change in color, change in hair/nails, dryness, laceration, lesions, lumps, rash, wounds, others Allergic/Immunocompromised: denies: Difficulty Healing, Frequent Infections, Hives, Itching, others Hematologic/Lymphatic: denies: anemia, blood clots, easy bleeding, easy bruising, swollen glands, others Endocrine: denies: excessive hunger, excessive sweating, excessive thirst, excessive urination, flushing, intolerance to cold, intolerance to heat, unexplained weight gain, unexplained weight loss, others Psychiatric: denies: anxiety, bipolar disorder, depression, hopeless, panic disorder, schizophrenia, sleepless, suicidal, others All Other Systems: Reviewed and Negative Vital Signs Vital Signs Date Time Temp Pulse Resp B/P (MAP) Pulse Ox O2 Delivery O2 Flow Rate FiO2 01/26/25 12:20 36.6 01/26/25 11:40 92 16 110/68 (82) 100 01/26/25 08:05 Room Air* 0 21 Physical Exam GENERAL: Alert and oriented x 3. No acute distress. EYES: PERRL, EOMI. Anicteric. HENT: Moist mucous membranes. LUNGS: Clear to auscultation bilaterally. CARDIOVASCULAR: Regular rate and rhythm. ABDOMEN: Soft, nontender and nondistended. EXTREMITIES: No edema. NEUROLOGIC: No focal neurological deficits. SKIN: Warm, dry. Labs/Diagnostic Data Labs Test 01/26/25 06:12 01/25/25 15:32 01/25/25 05:16 01/24/25 02:29 Range/Units POC Glucose 269 H 70-106 mg/dl Urine Color Light-yellow Yellow Urine Clarity Clear Clear Urine pH 6.5 5.0-9.0 Urine Specific [place] 1.019 1.001-1.035 Urine Protein Negative Negative Urine Ketones Negative Negative Urine Blood Negative Negative /uL Urine Nitrite Negative Negative Urine Bilirubin Negative Negative Urine Urobilinogen Normal Negative mg/dL Urine Leukocyte Esterase Negative Negative /uL Urine RBC 1 0 - 4 /hpf Urine Microscopic WBC 3 0-5 /HPF Urine Squamous Epithelial Cells None seen <5 /hpf Urine Bacteria Few H None Seen /hpf Urine Glucose 4+ H Normal mg/dL Urine Opiates Screen Neg NEGATIVE Urine Fentanyl Screen Neg NEGATIVE Urine Barbiturates Screen Neg NEGATIVE Urine Phencyclidine Screen Neg NEGATIVE Urine Amphetamines Screen Neg NEGATIVE Urine Benzodiazepines Screen Neg NEGATIVE Urine Cocaine Screen Neg NEGATIVE Urine Cannabinoids Screen Neg NEGATIVE White Blood Count 3.6 L 4.4-10.8 10^3/uL Red Blood Count 4.48 4.0-5.20 10^6/uL Hemoglobin 9.9 L 12.2-16.2 g/dL Hematocrit 31.8 L 36.0-46.0 % Mean Corpuscular Volume 71.0 L 80.0-100.0 fL Mean Corpuscular Hemoglobin 22.2 L 28.0-32.0 pg Mean Corpuscular Hemoglobin Concent 31.3 L 32.0-36.0 g/dL Red Cell Distribution Width 17.5 H 11.8-14.3 % Platelet Count 361 140-450 10^3/uL Mean Platelet Volume 7.4 6.9-10.8 fL Neutrophils (%) (Auto) 46.4 37.0-80.0 % Lymphocytes (%) (Auto) 35.1 10.0-50.0 % Monocytes (%) (Auto) 10.7 0.0-12.0 % Eosinophils (%) (Auto) 6.8 0.0-7.0 % Basophils (%) (Auto) 1.0 0.0-2.0 % Neutrophils # (Auto) 1.7 1.6-8.6 10 ^3/uL Lymphocytes # (Auto) 1.3 0.4-5.4 10 ^3/uL Monocytes # (Auto) 0.4 0-1.3 10 ^3/uL Eosinophils # (Auto) 0.2 0-0.8 10 ^3/uL Basophils # (Auto) 0 0-0.2 10 ^3/uL Nucleated Red Blood Cells 0.2 % Sodium Level 138 # 136-145 mmol/L Potassium Level 4.4 3.5-5.1 mmol/L Chloride Level 106 98-107 mmol/L Carbon Dioxide Level 23 20-31 mmol/L Anion Gap 9 5-15 Blood Urea Nitrogen 16 9-23 mg/dL Creatinine 0.65 0.550-1.02 mg/dL Glomerular Filtration Rate Calc 109 >90 mL/min BUN/Creatinine Ratio 24.6 H 10.0-20.0 Serum Glucose 167 H 74-106 mg/dL Calcium Level 9.9 8.7-10.4 mg/dL Prothrombin Time 10.3 9.3-11.8 sec Prothrombin Time INR 0.97 0.9-1.15 Activated Partial Thromboplast Time 28.7 24.5-34.5 SEC D-Dimer, Quantitative 0.37 0.0-0.49 mg/L FEU B-Type Natriuretic Peptide 158.24 0-100 pg/mL Assessment Bilateral Lower extremity tenderness on walking. Uncontrolled Diabetes. CAD, S/P PT[facility] X3 at [facility] in October 2024. Cystitis on antibiotics. Chronic HFrEF. History of CVA, no residual weakness. Obesity grade 1. History of substance abuse. Plan/Recommendation I agree with your ongoing assessment and care of plan. Aspirin. Diuretics with Lasix. Tylenol for pain management. Additional plan as per the hospital course. A total of 45 minutes was spent reviewing the patient record, examining the patient, making a diagnostic and therapeutic plan, discussing this plan with medical personnel, following up on diagnostic studies and following the patient for clinical stability excluding any and all procedures. At least 50% of this time was spent in direct, [id number] contact. Plan discussed with: Patient LUZ WALL MD Jan 27, 2025 19:09
== END 2025-01-26 13:30 | disposition home or self-care (01) | DRG 197 ==
LOC: ER 02:00 → OVERFLOW 04:52 → EAST 13:55
PROVIDERS: ADMIT Student in an Organized Health Care Education/Training Program; ATTEND Student in an Organized Health Care Education/Training Program
DX: E11.51 Type 2 diabetes mellitus with diabetic peripheral angiopathy without gangrene (principal); I11.0 Hypertensive heart disease with heart failure; I50.22 Chronic systolic (congestive) heart failure; N30.90 Cystitis, unspecified without hematuria; I25.10 Atherosclerotic heart disease of native coronary artery without angina pectoris; E11.65 Type 2 diabetes mellitus with hyperglycemia; E66.01 Morbid (severe) obesity due to excess calories; E78.5 Hyperlipidemia, unspecified; F41.9 Anxiety disorder, unspecified; Z88.3 Allergy status to other anti-infective agents; Z79.2 Long term (current) use of antibiotics; Z79.4 Long term (current) use of insulin; Z79.899 Other long term (current) drug therapy; Z83.3 Family history of diabetes mellitus; Z82.5 Family history of asthma and other chronic lower respiratory diseases; Z82.49 Family history of ischemic heart disease and other diseases of the circulatory system; Z79.82 Long term (current) use of aspirin; Z79.84 Long term (current) use of oral hypoglycemic drugs; Z86.73 Personal history of transient ischemic attack (TIA), and cerebral infarction without residual deficits; Z98.61 Coronary angioplasty status; Z68.34 Body mass index [BMI] 34.0-34.9, adult
CPT/HCPCS: 36415; 71045; 73562; 80048; 80307; 81001; 82962; 83880; 85025; 85379; 85610; 85730; 93925; 93970; 96372; 96374; G0378; J1815

== ENCOUNTER 2025-03-23 12:24 | Emergency (ER) | payer MEDICAID ==
[~2025-03-23] VITALS: Ht 165.1 cm; Wt 92.4 kg
[~2025-03-23 12:24] MED LIST changes: +ASPI1TAB20 PO; -DIGO0.12 PO; -EMPA1TAB PO; -ISOS1TAB28 PO; +OMEP20TA PO; +PRAV20TA3 PO
--- NOTE | 2025-03-23 13:18 | ED.PDOC ---
History of Present Illness HPI Comments This is a 49 year old female presenting to the ED with chief complaint of abnormal labs. Patient reports she had recent vascular surgery performed on both of her legs yesterday. Patient relays that she had labs drawn as well and she received a call today advising her to come to the ED due to critically low P otassium, but she was not told the number. Patient states she currently on feels a bit fatigued. Patient denies any N/V/D, abdominal pain, chest pain, SOB, dizziness, or headache. Chief Complaint: Abnormal LAB's Time Seen by MD: 13:15 Reviewed Notes: Nurses Notes, Medications, Allergies Allergies: Coded Allergies: Ibuprofen (Unverified Allergy, Severe, anaphylaxis, 10/31/24) Home Meds Active Scripts Midodrine HCl (Midodrine HCl) 10 Mg Tab, 10 MG PO TID for 30 Days, #90 TAB Prov:KAROLYN SALEH MD 01/13/25 Cephalexin (KEFLEX CAPSULE) 250 Mg Cp, 1 CAP PO QID for 7 Days, #28 CAP Prov:KAROLYN SALEH MD 01/13/25 Reported Medications Ranolazine (Ranolazine ER) 500 Mg Tab, 1 TAB PO BID PRN for 30 Days, #60 01/25/25 Omeprazole (Gnp Omeprazole) 20 Mg Tab, 1 TAB PO DAILY, #90 TAB 1 Refill 01/24/25 Pravastatin Sodium (PRAVACHOL TABLET) 20 Mg Tb, 1 TAB PO DAILY, #30 TAB 5 Refills 01/24/25 Aspirin (Aspir-81) 81 Mg Tab, 1 TAB PO DAILY, #30 TAB 5 Refills 01/24/25 Insulin Glargine (Lantus) 100 Unit/Ml Inj, 100 UNIT SC, INJ 01/11/25 Ticagrelor Base (BRILINTA) 90 Mg Tab, 90 MG PO, TAB 01/11/25 Escitalopram Oxalate (Lexapro) 10 Mg Tab, 1 TAB PO DAILY, #90 TAB 3 Refills 11/02/24 Sitagliptin Phosphate (Januvia) 50 Mg Tab, 1 TAB PO DAILY, #30 TAB 5 Refills 11/02/24 Information Source: Patient Mode of Arrival: Ambulatory Severity: Moderate Timing: Hours Duration: Since onset Prehospital treatment: None Past Medical History PAST MEDICAL HISTORY: Anxiety, CHF, DM, High Lipids, HTN Surgical History: BTL Surgical History (Other): Bilateral leg vascular surgery NOTE TELLER History: No Pertinent NOTE TELLER History Family History Family History: Reviewed,noncontributory to illness, Unknown Social History Smoker: Non-Smoker Alcohol: Denies ETOH Use Drugs: Denies Drug Use Lives In: Home Constitutional: reports: fatigue; denies: chills, diaphoresis, fever, malaise, sweats, weakness, others EENTM: denies: blurred vision, double vision, ear bleeding, ear discharge, ear drainage, ear pain, ear ringing, eye pain, eye redness, hearing loss, mouth pain, mouth swelling, nasal discharge, nose bleeding, nose congestion, nose pain, photophobia, tearing, throat pain, throat swelling, voice changes, others Respiratory: denies: cough, hemoptysis, orthopnea, SOB at rest, shortness of breath, SOB with excertion, stridor, wheezing, others Cardiovascular: denies: chest pain, dizzy spells, diaphoresis, Dyspnea on exertion, edema, irregular heart beat, left arm pain, lightheadedness, palpitations, PND, syncope, others Gastrointestinal: denies: abdomen distended, abdominal pain, blood streaked bowels, constipated, diarrhea, dysphagia, difficulty swallowing, hematemesis, melena, nausea, poor appetite, poor fluid intake, rectal bleeding, rectal pain, vomiting, others Genitourinary: denies: abnormal vagina bleeding, burning, dyspareunia, dysuria, flank pain, frequency, hematuria, incontinence, pain, , vagina discharge, urgency, others Neurological: denies: dizziness, fainting, headache, left sided numbness, left sided weakness, numbness, paresthesia, pre-existing deficit, right sided numbness, right sided weakness, seizure, speech problems, tingling, tremors, weakness, others Musculoskeletal: denies: back pain, gout, joint pain, joint swelling, muscle pain, muscle stiffness, neck pain, others Integumetry: denies: bruises, change in color, change in hair/nails, dryness, laceration, lesions, lumps, rash, wounds, others Allergic/Immunocompromised: denies: Difficulty Healing, Frequent Infections, Hives, Itching, others Hematologic/Lymphatic: denies: anemia, blood clots, easy bleeding, easy bruising, swollen glands, others Endocrine: denies: excessive hunger, excessive sweating, excessive thirst, excessive urination, flushing, intolerance to cold, intolerance to heat, unexp lained weight gain, unexplained weight loss, others Psychiatric: denies: anxiety, bipolar disorder, depression, hopeless, panic disorder, schizophrenia, sleepless, suicidal, others All Other Systems: Reviewed and Negative Physical Exam General Appearance: No Apparent Distress, Normal HEENT: Normal ENT Inspection, PERRL/EOMI Neck: Full Range of Motion, Non-Tender, Normal, Normal Inspection Respiratory: Chest Non-Tender, Lungs Clear, No Accessory Muscle Use, No Respiratory Distress, Normal Breath Sounds Cardiovascular: No Edema, No JVD, No Murmur, No Gallop, Normal Peripheral Pulses, Regular Rate/Rhythm Breast Exam: Deferred Gastrointestinal: No Organomegaly, Non Tender, No Pulsatile Mass, Normal Bowel Sounds, Soft Genitalia: Deferred Pelvic: Deferred Rectal: Deferred Extremities: No calf tenderness, Normal capillary refill, Normal inspection, Normal range of motion, Non-tender, No pedal edema Musculoskeletal : Apperance: Normal Neurologic: Alert, last chalker II-XII nml as Tested, No Motor Deficits, Normal Affect, Normal Mood, No Sensory Deficits Cerebellar Function: Normal Reflexes: Normal Skin: Dry, Normal Color, Warm Lymphatic: No Adenopathy Was a procedure done? Was a procedure done?: No Differential Dx Considerations may include: Elevated potassium, low potassium, electrolyte abnormalities X-Ray, Labs, Meds, VS Vital Signs Date Time Temp Pulse Resp B/P (MAP) Pulse Ox O2 Delivery O2 Flow Rate FiO2 03/23/25 14:39 83 17 98 Room Air 03/23/25 14:39 97.9 83 17 128/82 (97) 98 97.9 03/23/25 12:52 74 Lab Test 03/23/25 13:20 Range/Units White Blood Count 4.5 4.4-10.8 10^3/uL Red Blood Count 5.26 H 4.0-5.20 10^6/uL Hemoglobin 12.2 12.2-16.2 g/dL Hematocrit 37.2 36.0-46.0 % Mean Corpuscular Volume 70.8 L 80.0-100.0 fL Mean Corpuscular Hemoglobin 23.2 L 28.0-32.0 pg Mean Corpuscular Hemoglobin Concent 32.8 32.0-36.0 g/dL Red Cell Distribution Width 19.1 H 11.8-14.3 % Platelet Count 310 140-450 10^3/uL Mean Platelet Volume 7.7 6.9-10.8 fL Neutrophils (%) (Auto) 66.9 37.0-80.0 % Lymphocytes (%) (Auto) 17.8 10.0-50.0 % Monocytes (%) (Auto) 9.0 0.0-12.0 % Eosinophils (%) (Auto) 5.5 0.0-7.0 % Basophils (%) (Auto) 0.8 0.0-2.0 % Neutrophils # (Auto) 3.0 1.6-8.6 10 ^3/uL Lymphocytes # (Auto) 0.8 0.4-5.4 10 ^3/uL Monocytes # (Auto) 0.4 0-1.3 10 ^3/uL Eosinophils # (Auto) 0.2 0-0.8 10 ^3/uL Basophils # (Auto) 0 0-0.2 10 ^3/uL Nucleated Red Blood Cells 0.1 % Sodium Level 135 L 136-145 mmol/L Potassium Level 4.9 3.5-5.1 mmol/L Chloride Level 102 98-107 mmol/L Carbon Dioxide Level 25 20-31 mmol/L Anion Gap 8 5-15 Blood Urea Nitrogen 11 9-23 mg/dL Creatinine 0.80 0.550-1.02 mg/dL Glomerular Filtration Rate Calc 91 >90 mL/min BUN/Creatinine Ratio 13.8 10.0-20.0 Serum Glucose 394 H 74-106 mg/dL Calcium Level 10.4 8.7-10.4 mg/dL Time of 1ST Reevaluation: 14:15 Reevaluation 1ST: Unchanged Patient Education/Counseling: Diagnosis, Treatment Family Education/Counseling: No Family Present Additional Information Previous visits reviewed: 01/24/25 for acute on chronic CHF The following tests were ordered, and results were reviewed by me: CBC, BMP Additional Information was gathered from interviewing the following independent historians: None I reviewed and agreed with the following test results read by other providers: N one I discussed treatment and results with medical personnel and: patient Comprehensive systems review obtained and negative except for what is stated in the HPI. SEPSIS Sepsis Screen Vital Signs Date Time Temp Pulse Resp B/P (MAP) Pulse Ox O2 Delivery O2 Flow Rate FiO2 03/23/25 14:39 83 17 98 Room Air 03/23/25 14:39 97.9 83 17 128/82 (97) 98 97.9 03/23/25 12:52 74 Laboratory Tests Test 03/23/25 13:20 White Blood Count 4.5 10^3/uL (4.4-10.8) Departure 1 Departure Time of Disposition: 14:46 (Patient's blood work today he is benign other than her elevated blood sugar. Patient will not take her diabetes medication and follow up as an outpatient.) Impression: Primary Impression: Hyperglycemia Additional Impression: Visit for laboratory test Disposition: HOME / SELF CARE / HOMELESS Condition: Stable Additional Instructions: Your blood work today was normal except for an elevated blood sugar. Please stay well hydrated and continue to take your regular medications follow up with the regular doctors. Discharged With: Self Critical Care Note Critical Care Time?: No Stability Stability form required: No Heart Score Heart Score: Heart Score Response (Comments) Value History N/A 0 EKG N/A 0 Age N/A 0 Risk Factors N/A 0 Troponin N/A 0 Total 0 I personally scribed for TWILA RUSSO MD ([email or web address]) on 03/23/25 at 13:18. Electronically submitted by Obi Lundberg ([email or web address]). TWILA RUSSO MD Mar 23, 2025 13:18
[2025-03-23 13:40] LABS: Basophils # (auto) 0 10 ^3/uL (0-0.2); Eosinophils # (auto) 0.2 10 ^3/uL (0-0.8); Hemoglobin 12.2 g/dL (12.2-16.2); Lymphocytes # (auto) 0.8 10 ^3/uL (0.4-5.4); Mean Corpuscular Volume 70.8 fL (80.0-100.0); Monocytes # (auto) 0.4 10 ^3/uL (0-1.3); Nucleated Red Blood Cells % 0.1 %
[2025-03-23 13:43] LABS: Basophils % (auto) 0.8 % (0.0-2.0); Eosinophils % (auto) 5.5 % (0.0-7.0); Hematocrit 37.2 % (36.0-46.0); Lymphocytes % (auto) 17.8 % (10.0-50.0); Mean Corpuscular Hemoglobin 23.2 pg (28.0-32.0); Mean Corpuscular Hgb Conc. 32.8 g/dL (32.0-36.0); Neutrophils % (auto) 66.9 % (37.0-80.0); Platelet Count (auto) 310 10^3/uL (140-450); Red Blood Cells 5.26 10^6/uL (4.0-5.20); Red Cell Distribution Width 19.1 % (11.8-14.3); White Blood Cell 4.5 10^3/uL (4.4-10.8)
[2025-03-23 13:51] LABS: Anion Gap 8 (5-15); Carbon Dioxide 25 mmol/L (20-31); Chloride 102 mmol/L (98-107); Potassium 4.9 mmol/L (3.5-5.1)
[2025-03-23 13:52] LABS: Calcium 10.4 mg/dL (8.7-10.4); Sodium 135 mmol/L (136-145)
[2025-03-23 13:57] LABS: BUN/Creatinine Ratio 13.8 (10.0-20.0); Blood Urea Nitrogen 11 mg/dL (9-23)
[2025-03-23 14:00] LABS: Glucose 394 mg/dL (74-106)
[2025-03-23 14:39] VITALS: BP 128/82; PULSE 83; RESP 17; TEMP 97.9; O2SAT 98
--- NOTE | 2025-03-27 14:36 | ECG ---
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
== END 2025-03-23 15:01 | disposition home or self-care (01) ==
LOC: ER 12:24
DX: E11.65 Type 2 diabetes mellitus with hyperglycemia (principal); I11.0 Hypertensive heart disease with heart failure; I50.9 Heart failure, unspecified; E87.6 Hypokalemia; F41.9 Anxiety disorder, unspecified; Z79.82 Long term (current) use of aspirin; Z79.84 Long term (current) use of oral hypoglycemic drugs; Z79.899 Other long term (current) drug therapy; Z98.51 Tubal ligation status; Z88.6 Allergy status to analgesic agent; Z98.890 Other specified postprocedural states
CPT/HCPCS: 36415; 80048; 85025; 93005

== ENCOUNTER 2025-04-01 22:27 | Inpatient (IN) | payer MEDICAID ==
[~2025-04-01] VITALS: Ht 162.6 cm; Wt 90.5 kg
[2025-04-01 22:53] LABS: Hematocrit 35.4 % (36.0-46.0); Hemoglobin 11.6 g/dL (12.2-16.2); Mean Corpuscular Hemoglobin 23.2 pg (28.0-32.0); Mean Corpuscular Volume 70.6 fL (80.0-100.0); Nucleated Red Blood Cells % 0.1 %
[2025-04-01 23:20] LABS: Alanine Aminotransferase 29 U/L (7-40); Albumin 4.3 g/dL (3.2-4.8); Anion Gap 11 (5-15); BUN/Creatinine Ratio 17.6 (10.0-20.0); Bilirubin, Total 0.4 mg/dL (0.2-1.0); Blood Urea Nitrogen 15 mg/dL (9-23); Calcium 9.6 mg/dL (8.7-10.4); Chloride 102 mmol/L (98-107); Potassium 4.2 mmol/L (3.5-5.1); Total Protein 7.5 g/dL (5.7-8.2)
[2025-04-01] MEDS: NITROGLYCERIN 2% OINT 1GM PKG TD ONE (23:20)
[2025-04-01 23:26] LABS: Carbon Dioxide 20 mmol/L (20-31); Sodium 133 mmol/L (136-145)
[2025-04-01 23:28] LABS: Alkaline Phosphatase 155 U/L (46-116); Glucose 403 mg/dL (74-106)
[2025-04-01] MEDS: ONDANSETRON HCL 4 MG/2 ML VIAL IV ONE (23:38)
[2025-04-01 23:39] LABS: COVID19 ANTIGEN SOFIA FIA NEGATIVE (NEGATIVE)
[2025-04-01 23:43] VITALS: PULSE 82; RESP 19; O2SAT 98
[2025-04-01] MEDS: MORPHINE SULFATE 4 MG/ML SYR/VIAL IV ONE (23:43)
--- NOTE | 2025-04-01 23:46 | DVH ---
Exam: CT CT AB PEL WO CON-NO ORAL OR IV History: R sided abd pain, n/v Comparison Study: None Technique: Multidetector spiral CT of the abdomen was performed from lung bases to pubic symphysis. I maging was performed without IV contrast. Axial, coronal and sagittal multiplanar reformats were obta ined from the axial data set by the technologist. Radiation Dose : 1. Abdomen/Pelvis: CTDIvol 24.48 mGy, DLP 1355.54 mGy*cm. Findings: Evaluation of solid organs is limited due to lack of intravenous contrast use. Lung Bases: No acute or significant lung base finding. Normal heart size. No pleural or pericardial effusion. Liver: The liver is enlarged, measuring 20.4 cm in craniocaudal dimension. No focal lesions. Gallbladder and Biliary Tree: Cholelithiasis. Spleen: Unremarkable Pancreas: The pancreas is grossly normal in appearance. Adrenal Glands: Unremarkable Kidneys: Kidneys are grossly normal without calculi or hydronephrosis. Bladder: Grossly unremarkable for degree of distention. Bowel: The stomach is grossly normal in appearance. Small bowel and colon are normal in caliber and d istribution. The appendix is normal. Ascites: Absent Lymphadenopathy: No mesenteric, retroperitoneal or periportal lymphadenopathy. Abdominal Wall and Mesentery: Unremarkable. Vasculature: The visualized abdominal aorta is normal in size and caliber. Atherosclerotic vascular c alcifications. Evaluation of abdominal and pelvic vessels is limited due to lack of intravenous cont rast. Pelvic Organs: Unremarkable Musculoskeletal: No evidence of hardware complication status post L2 through S1 posterior lumbar inte rbody fusion. No aggressive focal bony lesions, acute fractures or dislocation. IMPRESSION: 1. No acute abdominal or pelvic findings. 2. Cholelithiasis. 3. Hepatomegaly. Radiation optimization: All CT scans at this facility use at least one of these dose optimization rachel hniques: automated exposure control mA and/or kV adjustment per patient size (includes targeted exam s where dose is matched to clinical indication) or iterative reconstruction.
--- NOTE | 2025-04-02 00:05 | DVH ---
CHEST RADIOGRAPH Indication: cp Technique: Single frontal view of the chest was obtained COMPARISON: XY CHEST XRAY 1 VIEW on DOS: 01/24/25, XY CHEST PORTABLE on DOS: 01/10/25 FINDINGS: Lines and Tubes: None Lungs: Clear Pleura: No effusion. No pneumothorax. Cardiomediastinal contours: Unremarkable Bones: Unremarkable IMPRESSION: 1. No acute disease.
[2025-04-02 00:13] LABS: Urine Protein, UAD Negative (Negative)
[2025-04-02] MEDS: cefTRIAXone 1GM/50ML D5W 50 ML IV ONE (00:39)
--- NOTE | 2025-04-02 00:41 | ED.PDOC ---
History of Present Illness HPI Comments 49-year-old female with a history of diabetes and CHF brought in by family complaining of shortness of breath and chest pain for the last 2 hours. Patient reports chest pain is localized to the retrosternal area and radiates to the left shoulder, is described as pressure-like and severe. She also reports fever 102.3 at home, associated with cough, nausea, vomiting and right-sided mid abdominal pain. She denies sick contacts, diarrhea or dysuria. Chief Complaint: Chest Pain Time Seen by MD: 22:31 Allergies: Coded Allergies: Ibuprofen (Unverified Allergy, Severe, anaphylaxis, 10/31/24) Metformin (Verified Allergy, Unknown, 04/01/25) Home Meds Active Scripts Midodrine HCl (Midodrine HCl) 10 Mg Tab, 10 MG PO TID for 30 Days, #90 TAB Prov:KAROLYN SALEH MD 01/13/25 Cephalexin (KEFLEX CAPSULE) 250 Mg Cp, 1 CAP PO QID for 7 Days, #28 CAP Prov:KAROLYN SALEH MD 01/13/25 Reported Medications Ranolazine (Ranolazine ER) 500 Mg Tab, 1 TAB PO BID PRN for 30 Days, #60 01/25/25 Omeprazole (Gnp Omeprazole) 20 Mg Tab, 1 TAB PO DAILY, #90 TAB 1 Refill 01/24/25 Pravastatin Sodium (PRAVACHOL TABLET) 20 Mg Tb, 1 TAB PO DAILY, #30 TAB 5 Refills 01/24/25 Aspirin (Aspir-81) 81 Mg Tab, 1 TAB PO DAILY, #30 TAB 5 Refills 01/24/25 Insulin Glargine (Lantus) 100 Unit/Ml Inj, 100 UNIT SC, INJ 01/11/25 Ticagrelor Base (BRILINTA) 90 Mg Tab, 90 MG PO, TAB 01/11/25 Escitalopram Oxalate (Lexapro) 10 Mg Tab, 1 TAB PO DAILY, #90 TAB 3 Refills 11/02/24 Sitagliptin Phosphate (Januvia) 50 Mg Tab, 1 TAB PO DAILY, #30 TAB 5 Refills 11/02/24 Mode of Arrival: Wheelchair Past Medical History PAST MEDICAL HISTORY: Anxiety, CHF, DM, High Lipids, HTN Surgical History: BTL 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 Moist mucous membranes.) Neck: Full Range of Motion, Normal Inspection Respiratory: Lungs Clear, No Accessory Muscle Use, No Respiratory Distress, Normal Breath Sounds Cardiovascular: No Edema, No JVD, Regular Rate/Rhythm Breast Exam: Deferred Gastrointestinal: RUQ, Soft, Tenderness, Other (Actively vomiting) Genitalia: Deferred Pelvic: Deferred Rectal: Deferred Extremities: Normal inspection, Normal range of motion, Non-tender, No pedal edema Neurologic: Alert (Oriented x4), Normal Affect, Normal Mood Cerebellar Function: NOT DONE Reflexes: NOT DONE Skin: Dry, Normal Color, Warm Lymphatic: NOT DONE Was a procedure done? Was a procedure done?: No EKG EKG : Comments Sinus rhythm, rate 99, normal intervals, left axis deviation, normal QRS, minimal ST depression inferior leads Differential Dx Considerations may include: ACS, OK, chest wall pain, bronchitis, pneumonia, CHF, COPD, asthma, viral syndrome, UTI, cholecystitis, biliary colic, among others X-Ray, Labs, Meds, VS Vital Signs Date Time Temp Pulse Resp B/P (MAP) Pulse Ox O2 Delivery O2 Flow Rate FiO2 04/02/25 02:19 80 20 98 Room Air 04/02/25 01:45 97.7 80 20 95/50 (65) 98 97.7 04/02/25 00:13 83 16 112/66 04/01/25 23:43 82 19 98 Room Air* 0 21 04/01/25 23:43 86 19 112/72 04/01/25 23:35 80 04/01/25 23:13 98.4 104 16 112/72 (85) 95 98.4 04/01/25 22:35 99 04/01/25 22:33 98.7 108 22 139/72 (94) 97 98.7 Lab Test 04/02/25 01:26 04/02/25 00:43 04/01/25 23:46 04/01/25 23:45 Range/Units Troponin I High Sensitivity 43 *H </=34 ng/L POC Glucose 347 H 70-106 mg/dl Urine Color Light-yellow Yellow Urine Clarity Clear Clear Urine pH 5.5 5.0-9.0 Urine Specific [place] 1.024 1.001-1.035 Urine Protein Negative Negative Urine Ketones Negative Negative Urine Blood Negative Negative /uL Urine Nitrite Negative Negative Urine Bilirubin Negative Negative Urine Urobilinogen Normal Negative mg/dL Urine Leukocyte Esterase Trace Negative /uL Urine RBC 1 0 - 4 /hpf Urine Microscopic WBC 3 0-5 /HPF Urine Squamous Epithelial Cells Few <5 /hpf Urine Bacteria Few H None Seen /hpf Urine Glucose 4+ H Normal mg/dL Urine Test Negative Negative Influenza Type A Antigen Negative Negative Influenza Type B Antigen Negative Negative SARS-CoV-2 Antigen (Rapid) Negative NEGATIVE Test 04/01/25 23:31 04/01/25 22:38 Range/Units Troponin I High Sensitivity 36 *H 38 *H </=34 ng/L White Blood Count 4.7 4.4-10.8 10^3/uL Red Blood Count 5.01 4.0-5.20 10^6/uL Hemoglobin 11.6 L 12.2-16.2 g/dL Hematocrit 35.4 L 36.0-46.0 % Mean Corpuscular Volume 70.6 L 80.0-100.0 fL Mean Corpuscular Hemoglobin 23.2 L 28.0-32.0 pg Mean Corpuscular Hemoglobin Concent 32.8 32.0-36.0 g/dL Red Cell Distribution Width 18.6 H 11.8-14.3 % Platelet Count 308 140-450 10^3/uL Mean Platelet Volume 7.4 6.9-10.8 fL Neutrophils (%) (Auto) 55.5 37.0-80.0 % Lymphocytes (%) (Auto) 25.0 10.0-50.0 % Monocytes (%) (Auto) 10.9 0.0-12.0 % Eosinophils (%) (Auto) 7.5 H 0.0-7.0 % Basophils (%) (Auto) 1.1 0.0-2.0 % Neutrophils # (Auto) 2.6 1.6-8.6 10 ^3/uL Lymphocytes # (Auto) 1.2 0.4-5.4 10 ^3/uL Monocytes # (Auto) 0.5 0-1.3 10 ^3/uL Eosinophils # (Auto) 0.4 0-0.8 10 ^3/uL Basophils # (Auto) 0.1 0-0.2 10 ^3/uL Nucleated Red Blood Cells 0.1 % Sodium Level 133 L 136-145 mmol/L Potassium Level 4.2 3.5-5.1 mmol/L Chloride Level 102 98-107 mmol/L Carbon Dioxide Level 20 20-31 mmol/L Anion Gap 11 5-15 Blood Urea Nitrogen 15 9-23 mg/dL Creatinine 0.85 0.550-1.02 mg/dL Glomerular Filtration Rate Calc 84 >90 mL/min BUN/Creatinine Ratio 17.6 10.0-20.0 Serum Glucose 403 *H 74-106 mg/dL Calcium Level 9.6 8.7-10.4 mg/dL Total Bilirubin 0.4 0.2-1.0 mg/dL Aspartate Amino Transferase (AST) 24 <34 U/L Alanine Aminotransferase (ALT) 29 7-40 U/L Alkaline Phosphatase 155 H 46-116 U/L B-Type Natriuretic Peptide 84.13 0-100 pg/mL Total Protein 7.5 5.7-8.2 g/dL Albumin 4.3 3.2-4.8 g/dL Current Medications Medications (Trade) Dose Ordered Sig/Tori Route Start Time Stop Time Status Last Admin Aspirin 325 mg ONCE ONCE PO 04/01/25 23:00 04/01/25 23:01 DC 04/01/25 23:38 Ondansetron HCl (Zofran) 4 mg ONCE ONCE IV 04/01/25 23:00 04/01/25 23:01 DC 04/01/25 23:38 Morphine Sulfate 4 mg ONCE ONCE IV 04/01/25 23:00 04/01/25 23:01 DC 04/01/25 23:43 Ceftriaxone Sodium 50 ml @ 100 mls/hr ONCE ONCE IV 04/02/25 00:30 04/02/25 00:59 DC 04/02/25 00:39 Insulin Human Regular (InsuLIN R) 6 units ONCE ONCE IV 04/02/25 00:45 04/02/25 00:46 DC 04/02/25 00:48 PROCEDURE(s): CXRP - CHEST PORTABLE REASON: cp ORDER NUMBER(s): [id number], ACCESSION NUMBER(s): [id number] CHEST RADIOGRAPH Indication: cp Technique: Single frontal view of the chest was obtained COMPARISON: XY CHEST XRAY 1 VIEW on DOS: 01/24/25, XY CHEST PORTABLE on DOS: 01/10/25 FINDINGS: Lines and Tubes: None Lungs: Clear Pleura: No effusion. No pneumothorax. Cardiomediastinal contours: Unremarkable Bones: Unremarkable IMPRESSION: 1. No acute disease. EDURE(s): ABPL - CT AB PEL WO CON-NO ORAL OR IV REASON: R sided abd pain, n/v ORDER NUMBER(s): [id number], ACCESSION NUMBER(s): [id number] Exam: CT CT AB PEL WO CON-NO ORAL OR IV History: R sided abd pain, n/v Comparison Study: None Technique: Multidetector spiral CT of the abdomen was performed from lung bases to pubic symphysis. Imaging was performed without IV contrast. Axial, coronal and sagittal multiplanar reformats were obtained from the axial data set by the technologist. Radiation Dose : 1. Abdomen/Pelvis: CTDIvol 24.48 mGy, DLP 1355.54 mGy*cm. Findings: Evaluation of solid organs is limited due to lack of intravenous contrast use. Lung Bases: No acute or significant lung base finding. Normal heart size. No pleural or pericardial effusion. Liver: The liver is enlarged, measuring 20.4 cm in craniocaudal dimension. No focal lesions. Gallbladder and Biliary Tree: Cholelithiasis. Spleen: Unremarkable Pancreas: The pancreas is grossly normal in appearance. Adrenal Glands: Unremarkable Kidneys: Kidneys are grossly normal without calculi or hydronephrosis. Bladder: Grossly unremarkable for degree of distention. Bowel: The stomach is grossly normal in appearance. Small bowel and colon are normal in caliber and distribution. The appendix is normal. Ascites: Absent Lymphadenopathy: No mesenteric, retroperitoneal or periportal lymphadenopathy. Abdominal Wall and Mesentery: Unremarkable. Vasculature: The visualized abdominal aorta is normal in size and caliber. Atherosclerotic vascular calcifications. Evaluation of abdominal and pelvic vessels is limited due to lack of intravenous contrast. Pelvic Organs: Unremarkable Musculoskeletal: No evidence of hardware complication status post L2 through S1 posterior lumbar interbody fusion. No aggressive focal bony lesions, acute fractures or dislocation. IMPRESSION: 1. No acute abdominal or pelvic findings. 2. Cholelithiasis. 3. Hepatomegaly. Radiation optimization: All CT scans at this facility use at least one of these dose optimization techniques: automated exposure control mA and/or kV adjustment per patient size (includes targeted exams where dose is matched to clinical indication) or iterative reconstruction. X-Ray, Labs, Meds, VS Comment 49-year-old female with a history of diabetes, hypertension, CHF, dyslipidemia morbid obesity brought in by family complaining of chest pain, shortness of breath, fever, nausea, vomiting and right-sided abdominal pain Vitals remarkable for initial heart rate 108, respiratory rate 22 Exam remarkable for active vomiting and right upper quadrant tenderness to palpation Rhythm strip independently interpreted by me: Sinus rhythm, rate 99, no ectopy. Chest x-ray unremarkable CT abdomen and pelvis unremarkable CBC unremarkable, basic metabolic panel remarkable for sodium 133, glucose 403, BNP normal, serial troponins 38 and 36, UA abnormal consistent with possible early UTI Patient treated with the following in the ED: Aspirin 325 mg p.o., nitro paste 1/2 inch to chest wall, Zofran 4 mg IV, morphine 4 mg IV, Rocephin 1 g IV On re-evaluation, patient states chest pain and nausea have improved. Patient is no longer tachycardic and other vitals are stable. Heart score is 6. Plan is to admit the patient for ongoing serial troponins, IV antibiotics, and blood glucose control. Time of 1ST Reevaluation: 00:37 Reevaluation 1ST: Improved Patient Education/Counseling: Diagnosis, Treatment Family Education/Counseling: Diagnosis, Treatment SEPSIS Sepsis Screen Date sepsis recognized/suspect: Apr 01, 2025 Time Sepsis recognized/suspect: 2314 Recent Procedure: No On Antibiotic Therapy: No Respiratory Rate >20: No Heart Rate >90: Yes (99BPM) Temp<36 C (96.8 F) or >38.3 C: No SBP <90 or MAP <65 mmHG: No New Acute Mental Status Change: No Is the patient on CPAP, BIPAP,: No SEPSIS EXCLUSION NOTE: Sepsis Exclusion Note: Patient presents with SIRS criteria, but the SIRS response is attributed to [nausea, vomiting and pain ], Sepsis bundle is not initiated at this time, due to this reason. Further management will focus on the treatment of the above condition (s). Physician Orders Electrocardigram (04/01/25 22:31) Chest Portable (04/01/25 22:36) Ct Ab Pel Wo Con-No Oral Or Iv (04/01/25 22:50) Accucheck (04/02/25 ) Vital Signs Date Time Temp Pulse Resp B/P (MAP) Pulse Ox O2 Delivery O2 Flow Rate FiO2 04/02/25 02:19 80 20 98 Room Air 04/02/25 01:45 97.7 80 20 95/50 (65) 98 97.7 04/02/25 00:13 83 16 112/66 04/01/25 23:43 82 19 98 Room Air* 0 21 04/01/25 23:43 86 19 112/72 04/01/25 23:35 80 04/01/25 23:13 98.4 104 16 112/72 (85) 95 98.4 04/01/25 22:35 99 04/01/25 22:33 98.7 108 22 139/72 (94) 97 98.7 Laboratory Tests Test 04/01/25 22:38 White Blood Count 4.7 10^3/uL (4.4-10.8) Medications Medications Dose Ordered Sig/Tori Route Start Time Stop Time Status Last Admin Dose Admin Aspirin 325 mg ONCE ONCE PO 04/01/25 23:00 04/01/25 23:01 DC 04/01/25 23:38 Ceftriaxone Sodium 50 ml @ 100 mls/hr ONCE ONCE IV 04/02/25 00:30 04/02/25 00:59 DC 04/02/25 00:39 Insulin Human Regular 6 units ONCE ONCE IV 04/02/25 00:45 04/02/25 00:46 DC 04/02/25 00:48 Morphine Sulfate 4 mg ONCE ONCE IV 04/01/25 23:00 04/01/25 23:01 DC 04/01/25 23:43 Ondansetron HCl 4 mg ONCE ONCE IV 04/01/25 23:00 04/01/25 23:01 DC 04/01/25 23:38 Departure 1 Departure Time of Disposition: 00:39 Impression: Primary Impression: Chest pain with high risk for cardiac etiology Additional Impressions: Elevated troponin Hyperglycemia UTI (urinary tract infection) Disposition: ADMITTED INPATIENT Admit to: Tele Condition: Guarded Critical Care Note Critical Care Time?: No Stability Stability form required: No Heart Score Heart Score: Heart Score Response (Comments) Value History Slightly Suspicious [address]-Deviation 2 Age 45-64 1 Risk Factors >3 or Hx ASHD 2 Troponin 1-2 x's Normal limit 1 Total 6 TOBY PETERSON MD Apr 02, 2025 00:41
[2025-04-02] MEDS: InsuLIN REG 1unit/0.01ml Soln (100units/ml) IV ONE (00:48)
--- NOTE | 2025-04-02 03:26 | DVHHP2 ---
History of Present Illness Reason for Visit: Chest pain History of Present Illness 49-year-old female presents for evaluation of chest pain. Patient reports having an argument with a family member last night and subsequently developed sharp substernal chest pain that was radiating to her left upper chest. She reported shortness for breath with nausea. Currently rates the pain as 3/10 intensity and intermittent. Past Medical History Hypertension, mi, dyslipidemia, diabetes mellitus, CHF Past Surgical History BTL Family History Noncontributory Smoke: No ALCOHOL: none Drugs: None Lives: with Family Review of Systems Review of Systems Review of systems are currently negative otherwise addressed in HPI. Allergies: Coded Allergies: Ibuprofen (Unverified Allergy, Severe, anaphylaxis, 10/31/24) Metformin (Verified Allergy, Unknown, 04/01/25) Medications Current Medications Medications Dose Ordered Sig/Tori Route Start Time Stop Time Status Last Admin Dose Admin Midodrine 10 mg TID@0600,1200,1800 PO 04/02/25 06:00 UNV Aspirin 81 mg DAILY PO 04/02/25 10:00 UNV Atorvastatin Calcium 20 mg HS PO 04/02/25 22:00 UNV Ranolazine 500 mg BID PO 04/02/25 10:00 UNV Ticagrelor 90 mg BID PO 04/02/25 10:00 UNV Diagnostic Test (Pha) 1 strip IQ4HR 04/02/25 04:00 UNV Insulin Human Regular IQ4HR SC 04/02/25 04:00 UNV Dextrose 50 ml UD PRN IV 04/02/25 03:30 UNV Ondansetron HCl 4 mg Q4HP PRN IV 04/02/25 03:30 UNV Acetaminophen 650 mg Q6HP PRN PO 04/02/25 03:30 UNV Nitroglycerin 0.4 mg Q5MINP PRN SL 04/02/25 03:30 UNV Morphine Sulfate 2 mg Q30M PRN IV 04/02/25 03:30 UNV Exam Vital Signs Vital Signs Date Time Temp Pulse Resp B/P (MAP) Pulse Ox O2 Delivery O2 Flow Rate FiO2 04/02/25 02:19 80 20 98 Room Air 04/02/25 01:45 97.7 95/50 (65) 97.7 04/01/25 23:43 0 21 Exam Gen: 49-year-old female in mild distress, obese Skin: Warm, dry, normal color and texture, no rash. HEENT: Normocephalic atraumatic, mucous membranes moist and pink. Neck: Cervical and supraclavicular nodes normal without enlargement, trachea is midline, thyroid gland is normal without masses. Pulmonary: Clear to auscultation and percussion bilaterally. Cardiac: Regular rate and rhythm. No murmur Abdomen: Soft, nontender, nondistended, bowel sounds present all 4 quadrants, no guarding, no rigidity, no organomegaly. Extremities: No cyanosis, clubbing, no edema Neuro: Cranial nerves II through XII grossly intact, normal affect and speech, no focal motor deficits. Labs/Xrays ORDERING PHYSICIAN: TOBY PETERSON MD PROCEDURE(s): CXRP - CHEST PORTABLE REASON: cp ORDER NUMBER(s): [id number], ACCESSION NUMBER(s): [id number] CHEST RADIOGRAPH Indication: cp Technique: Single frontal view of the chest was obtained COMPARISON: XY CHEST XRAY 1 VIEW on DOS: 01/24/25, XY CHEST PORTABLE on DOS: 01/10/25 FINDINGS: Lines and Tubes: None Lungs: Clear Pleura: No effusion. No pneumothorax. Cardiomediastinal contours: Unremarkable Bones: Unremarkable IMPRESSION: 1. No acute disease. RING PHYSICIAN: TOBY PETERSON MD PROCEDURE(s): ABPL - CT AB PEL WO CON-NO ORAL OR IV REASON: R sided abd pain, n/v ORDER NUMBER(s): [id number], ACCESSION NUMBER(s): [id number] Exam: CT CT AB PEL WO CON-NO ORAL OR IV History: R sided abd pain, n/v Comparison Study: None Technique: Multidetector spiral CT of the abdomen was performed from lung bases to pubic symphysis. Imaging was performed without IV contrast. Axial, coronal and sagittal multiplanar reformats were obtained from the axial data set by the technologist. Radiation Dose : 1. Abdomen/Pelvis: CTDIvol 24.48 mGy, DLP 1355.54 mGy*cm. Findings: Evaluation of solid organs is limited due to lack of intravenous contrast use. Lung Bases: No acute or significant lung base finding. Normal heart size. No pleural or pericardial effusion. Liver: The liver is enlarged, measuring 20.4 cm in craniocaudal dimension. No focal lesions. Gallbladder and Biliary Tree: Cholelithiasis. Spleen: Unremarkable Pancreas: The pancreas is grossly normal in appearance. Adrenal Glands: Unremarkable Kidneys: Kidneys are grossly normal without calculi or hydronephrosis. Bladder: Grossly unremarkable for degree of distention. Bowel: The stomach is grossly normal in appearance. Small bowel and colon are normal in caliber and distribution. The appendix is normal. Ascites: Absent Lymphadenopathy: No mesenteric, retroperitoneal or periportal lymphadenopathy. Abdominal Wall and Mesentery: Unremarkable. Vasculature: The visualized abdominal aorta is normal in size and caliber. Atherosclerotic vascular calcifications. Evaluation of abdominal and pelvic vessels is limited due to lack of intravenous contrast. Pelvic Organs: Unremarkable Musculoskeletal: No evidence of hardware complication status post L2 through S1 posterior lumbar interbody fusion. No aggressive focal bony lesions, acute fractures or dislocation. IMPRESSION: 1. No acute abdominal or pelvic findings. 2. Cholelithiasis. 3. Hepatomegaly. Radiation optimization: All CT scans at this facility use at least one of these dose optimization techniques: automated exposure control mA and/or kV adjustment per patient size (includes targeted exams where dose is matched to clinical indication) or iterative reconstruction. Labs Test 04/02/25 01:26 04/02/25 00:43 04/01/25 23:46 04/01/25 23:45 Range/Units Troponin I High Sensitivity 43 *H </=34 ng/L POC Glucose 347 H 70-106 mg/dl Urine Color Light-yellow Yellow Urine Clarity Clear Clear Urine pH 5.5 5.0-9.0 Urine Specific [place] 1.024 1.001-1.035 Urine Protein Negative Negative Urine Ketones Negative Negative Urine Blood Negative Negative /uL Urine Nitrite Negative Negative Urine Bilirubin Negative Negative Urine Urobilinogen Normal Negative mg/dL Urine Leukocyte Esterase Trace Negative /uL Urine RBC 1 0 - 4 /hpf Urine Microscopic WBC 3 0-5 /HPF Urine Squamous Epithelial Cells Few <5 /hpf Urine Bacteria Few H None Seen /hpf Urine Glucose 4+ H Normal mg/dL Urine Test Negative Negative Influenza Type A Antigen Negative Negative Influenza Type B Antigen Negative Negative SARS-CoV-2 Antigen (Rapid) Negative NEGATIVE Test 04/01/25 22:38 Range/Units White Blood Count 4.7 4.4-10.8 10^3/uL Red Blood Count 5.01 4.0-5.20 10^6/uL Hemoglobin 11.6 L 12.2-16.2 g/dL Hematocrit 35.4 L 36.0-46.0 % Mean Corpuscular Volume 70.6 L 80.0-100.0 fL Mean Corpuscular Hemoglobin 23.2 L 28.0-32.0 pg Mean Corpuscular Hemoglobin Concent 32.8 32.0-36.0 g/dL Red Cell Distribution Width 18.6 H 11.8-14.3 % Platelet Count 308 140-450 10^3/uL Mean Platelet Volume 7.4 6.9-10.8 fL Neutrophils (%) (Auto) 55.5 37.0-80.0 % Lymphocytes (%) (Auto) 25.0 10.0-50.0 % Monocytes (%) (Auto) 10.9 0.0-12.0 % Eosinophils (%) (Auto) 7.5 H 0.0-7.0 % Basophils (%) (Auto) 1.1 0.0-2.0 % Neutrophils # (Auto) 2.6 1.6-8.6 10 ^3/uL Lymphocytes # (Auto) 1.2 0.4-5.4 10 ^3/uL Monocytes # (Auto) 0.5 0-1.3 10 ^3/uL Eosinophils # (Auto) 0.4 0-0.8 10 ^3/uL Basophils # (Auto) 0.1 0-0.2 10 ^3/uL Nucleated Red Blood Cells 0.1 % Sodium Level 133 L 136-145 mmol/L Potassium Level 4.2 3.5-5.1 mmol/L Chloride Level 102 98-107 mmol/L Carbon Dioxide Level 20 20-31 mmol/L Anion Gap 11 5-15 Blood Urea Nitrogen 15 9-23 mg/dL Creatinine 0.85 0.550-1.02 mg/dL Glomerular Filtration Rate Calc 84 >90 mL/min BUN/Creatinine Ratio 17.6 10.0-20.0 Serum Glucose 403 *H 74-106 mg/dL Calcium Level 9.6 8.7-10.4 mg/dL Total Bilirubin 0.4 0.2-1.0 mg/dL Aspartate Amino Transferase (AST) 24 <34 U/L Alanine Aminotransferase (ALT) 29 7-40 U/L Alkaline Phosphatase 155 H 46-116 U/L B-Type Natriuretic Peptide 84.13 0-100 pg/mL Total Protein 7.5 5.7-8.2 g/dL Albumin 4.3 3.2-4.8 g/dL Assessment/Plan Assessment/Plan Assessment Chest pain rule out ACS Uncontrolled diabetes mellitus Hypotension Obesity Plan Admit the patient to telemetry to the hospitalist Cardiology consultation ACS protocol Resume home medications Continue treatment per orders. Plan discussed with: Patient My Orders Orders - XOCHILT STOUT M AGACNP Procedure Category Date Status Time Midodrine Tablet PHA 04/02/25 Logged (Proamatine Tablet) 06:00 Aspirin Tablet PHA 04/02/25 Logged 10:00 Atorvastatin (Lipitor) PHA 04/02/25 Logged 22:00 Ranolazine (Ranexa Er) PHA 04/02/25 Logged 10:00 Ticagrelor (Brilinta) PHA 04/02/25 Logged 10:00 * Cardiology Consult CONS 04/02/25 Transmitted 03:16 Basic Metabolic Panel LAB 04/03/25 Verified 04:00 Glucose Blood PHA 04/02/25 Logged (Accu-Chek Comfort 04:00 Insulin R (Human) PHA 04/02/25 Logged (Insulin R) 04:00 Dextrose 50% Syringe PHA 04/02/25 Logged 03:30 Admit ADMIT 04/02/25 Transmitted 03:16 Ondansetron Hcl PHA 04/02/25 Logged (Zofran) 03:30 Cardiac DIET 04/02/25 Transmitted Diet-2gna,Lofat,Lochol Breakfast Echo 2d Mode Cardiac US 04/02/25 Logged DOP 03:16 Condition: Fair [facility] 04/02/25 In Process 03:16 Acetaminophen Tablet PHA 04/02/25 Logged (Tylenol Tablet) 03:30 Bedrest With Bathroom [facility] 04/02/25 In Process Privileg 03:16 Nitroglycerin PHA 04/02/25 Logged Sublingual (Ntrostat 03:30 Morphine Sulfate PHA 04/02/25 Logged Injection 03:30 Stat Ekg For Chest [facility] 04/02/25 In Process Pain 03:16 Notify Md Of Changes [facility] 04/02/25 In Process From Base 03:[address] [facility] 04/02/25 In Process 24 Hours 03:[address] [facility] 04/02/25 In Process Protocol 03:[address] [facility] 04/02/25 In Process Every Shift 03:16 Oxygen By Nasal RT 04/02/25 Transmitted Cannula 03:16 Date of Service: Apr 02, 2025 Billing Provider: XOCHILT STOUT Common Visit Codes: [id number] INP/OBS CARE (HIGH) XOCHILT STOUT Apr 02, 2025 03:26
[2025-04-02] MEDS ORDERED: DEXTROSE (50%) 50ML SYRG IV PRN (03:30)
[2025-04-02] MEDS ORDERED: ACETAMINOPHEN 325 MG TAB PO PRN (03:30)
[2025-04-02] MEDS ORDERED: NITROGLYCERIN 0.4 MG SL TAB SL PRN (03:30)
[2025-04-02] MEDS ORDERED: MORPHINE SULFATE INJ 2 MG/ml SYRG IV PRN (03:30)
[2025-04-02] MEDS: ACCU-CHEK COMFORT CURVE STRIP VI SCH (04:12)
[2025-04-02] MEDS: InsuLIN REG 1unit/0.01ml Soln (100units/ml) SC SCH (04:15)
[2025-04-02] MEDS: MIDODRINE HCL 10 MG TAB PO SCH (06:04)
[2025-04-02 06:35] VITALS: PULSE 84; RESP 17; O2SAT 98
[2025-04-02] MEDS: RANOLAZINE ER 500 MG TAB PO SCH (08:30)
[2025-04-02] MEDS: TICAGRELOR 90 MG TAB PO SCH (08:30)
--- NOTE | 2025-04-02 10:32 | DVHINCON2 ---
ELVIN [facility]IN [facility] 04/02/25 1032: Date Seen: Apr 02, 2025 Referring Physician ADRIANA Lovelace Reason for Consultation Chest pain History of Present Illness This is a 49-year-old female who presented to the emergency room with a chief complaint of chest pain for 2 hours. Describes her chest pain as substernal radiating to the left shoulder, worse with inspiration, and associated with mild SOB, nausea, vomiting, and right-sided abdominal pain which is tender upon palpation. The patient has a significant medical history for cardiovascular disease and follows up in the outpatient setting with Dr. Haile with latest appointment a month ago. States she is on dual antiplatelet therapy with Brilinta but ran out on with refills on Wednesday. She underwent a 12 lead electrocardiogram revealing a sinus rhythm. Troponin levels trended up to 43 ng/L. 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 Past Medical History Past medical history reviewed. No other significant than mentioned above. Past Surgical History PTCA including 3 SUJEY, 11/2024 TOLL RELIEF OPERATOR including 4 SUJEY, 03/2025 BTL Family History: Diabetes mellitus G8 MOTHER FH: COPD (chronic obstructive pulmonary disease) G8 MOTHER FH: hepatic cirrhosis G8 MOTHER Hypertension G8 MOTHER Family History Family history reviewed. Social History Denies the use of illicit drugs, alcohol, or tobacco use. Allergies: Coded Allergies: Ibuprofen (Unverified Allergy, Severe, anaphylaxis, 10/31/24) Metformin (Verified Allergy, Unknown, 04/01/25) Home Meds Active Scripts Midodrine HCl (Midodrine HCl) 10 Mg Tab, 10 MG PO TID for 30 Days, #90 TAB Prov:KAROLYN SALEH MD 01/13/25 Cephalexin (KEFLEX CAPSULE) 250 Mg Cp, 1 CAP PO QID for 7 Days, #28 CAP Prov:KAROLYN SALEH MD 01/13/25 Reported Medications Ranolazine (Ranolazine ER) 500 Mg Tab, 1 TAB PO BID PRN for 30 Days, #60 01/25/25 Omeprazole (Gnp Omeprazole) 20 Mg Tab, 1 TAB PO DAILY, #90 TAB 1 Refill 01/24/25 Pravastatin Sodium (PRAVACHOL TABLET) 20 Mg Tb, 1 TAB PO DAILY, #30 TAB 5 Refills 01/24/25 Aspirin (Aspir-81) 81 Mg Tab, 1 TAB PO DAILY, #30 TAB 5 Refills 01/24/25 Insulin Glargine (Lantus) 100 Unit/Ml Inj, 100 UNIT SC, INJ 01/11/25 Ticagrelor Base (BRILINTA) 90 Mg Tab, 90 MG PO, TAB 01/11/25 Escitalopram Oxalate (Lexapro) 10 Mg Tab, 1 TAB PO DAILY, #90 TAB 3 Refills 11/02/24 Sitagliptin Phosphate (Januvia) 50 Mg Tab, 1 TAB PO DAILY, #30 TAB 5 Refills 11/02/24 Home Meds Home medications reviewed. Current Medications Current Medications Medications (Trade) Dose Ordered Sig/Tori Route PRN Reason Start Time Stop Time Status Last Admin Midodrine (Proamatine Tablet) 10 mg TID@0600,1200,1800 PO 04/02/25 06:00 04/02/25 06:04 Aspirin 81 mg DAILY PO 04/02/25 10:00 04/02/25 08:33 Atorvastatin Calcium (Lipitor) 20 mg HS PO 04/02/25 22:00 Ranolazine (Ranexa ER) 500 mg BID PO 04/02/25 10:00 04/02/25 08:30 Ticagrelor (Brilinta) 90 mg BID PO 04/02/25 10:00 04/02/25 08:30 Diagnostic Test (Pha) (Accu-Chek Comfort Curve T) 1 strip IQ4HR 04/02/25 04:00 04/02/25 08:30 Insulin Human Regular (InsuLIN R) IQ4HR SC 04/02/25 04:00 04/02/25 08:24 Dextrose 50 ml UD PRN IV Blood Sugar LESS THAN 60 04/02/25 03:30 Ondansetron HCl (Zofran) 4 mg Q4HP PRN IV NAUSEA / VOMITING 04/02/25 03:30 Acetaminophen (Tylenol Tablet) 650 mg Q6HP PRN PO PAIN SCALE 1-3 OR TEMP>100.4 04/02/25 03:30 Nitroglycerin (Ntrostat Sublingual) 0.4 mg Q5MINP PRN SL FOR CHEST PAIN 04/02/25 03:30 Morphine Sulfate 2 mg Q30M PRN IV FOR CHEST PAIN 04/02/25 03:30 Review of Systems Constitutional: No symptom reported Ears, Nose, & Throat: No symptom reported Eyes: No symptom reported Neurological: No symptoms reported Pulmonary/Respiratory: No symptom reported Cardiovascular: Chest pain Gastrointestinal: Abdominal pain, nausea, vomiting Genitourinary: No symptom reported Musculoskeletal: No symptom reported Skin: No symptom reported Psychiatric: No symptom reported Endocrine: No symptom reported Hemotologic/Lymphatic: No symptom reported Vital Signs Vital Signs Date Time Temp Pulse Resp B/P (MAP) Pulse Ox O2 Delivery O2 Flow Rate FiO2 04/02/25 08:02 74 14 93/44 (60) 98 04/02/25 06:35 Room Air* 0 21 04/02/25 06:11 98.0 98.0 Physical Exam General Appearance: Cooperative. Well developed. This. In no acute distress Head Exam: Normal inspection Neck Exam: Normal inspection. Non-tender. Normal alignment Pulmonary/Respiratory: Chest non-tender. Clear bilateral breath sounds Cardiovascular/Chest: Regular rate and rhythm. S1, S2. Sinus rhythm. No murmurs. No JVD. Peripheral Pulses: 2+ Radial (R). 2+ Radial (L). 2+ Pedal (R). 2+ Pedal (L) Abdominal Exam: Normal bowel sounds. Soft. Tender right sided. No hepatospenomegaly. No masses Ankle Exam: Negative ankle edema Lower extremities: Negative lower extremity edema Neuro/Mental Status: A&O x4. Coherent Thoughts/Psych: Normal thought pattern. Appropriate mood and affect. Good judgement and insight Appearance: In no acute distress Skin Exam: Normal inspection. Normal color. Warm. Dry Labs/Diagnostic Data Labs Test 04/02/25 08:23 04/02/25 01:26 04/01/25 23:46 04/01/25 23:45 Range/Units POC Glucose 286 H 70-106 mg/dl Troponin I High Sensitivity 43 *H </=34 ng/L Urine Color Light-yellow Yellow Urine Clarity Clear Clear Urine pH 5.5 5.0-9.0 Urine Specific [place] 1.024 1.001-1.035 Urine Protein Negative Negative Urine Ketones Negative Negative Urine Blood Negative Negative /uL Urine Nitrite Negative Negative Urine Bilirubin Negative Negative Urine Urobilinogen Normal Negative mg/dL Urine Leukocyte Esterase Trace Negative /uL Urine RBC 1 0 - 4 /hpf Urine Microscopic WBC 3 0-5 /HPF Urine Squamous Epithelial Cells Few <5 /hpf Urine Bacteria Few H None Seen /hpf Urine Glucose 4+ H Normal mg/dL Urine Test Negative Negative Influenza Type A Antigen Negative Negative Influenza Type B Antigen Negative Negative SARS-CoV-2 Antigen (Rapid) Negative NEGATIVE Test 04/01/25 22:38 Range/Units White Blood Count 4.7 4.4-10.8 10^3/uL Red Blood Count 5.01 4.0-5.20 10^6/uL Hemoglobin 11.6 L 12.2-16.2 g/dL Hematocrit 35.4 L 36.0-46.0 % Mean Corpuscular Volume 70.6 L 80.0-100.0 fL Mean Corpuscular Hemoglobin 23.2 L 28.0-32.0 pg Mean Corpuscular Hemoglobin Concent 32.8 32.0-36.0 g/dL Red Cell Distribution Width 18.6 H 11.8-14.3 % Platelet Count 308 140-450 10^3/uL Mean Platelet Volume 7.4 6.9-10.8 fL Neutrophils (%) (Auto) 55.5 37.0-80.0 % Lymphocytes (%) (Auto) 25.0 10.0-50.0 % Monocytes (%) (Auto) 10.9 0.0-12.0 % Eosinophils (%) (Auto) 7.5 H 0.0-7.0 % Basophils (%) (Auto) 1.1 0.0-2.0 % Neutrophils # (Auto) 2.6 1.6-8.6 10 ^3/uL Lymphocytes # (Auto) 1.2 0.4-5.4 10 ^3/uL Monocytes # (Auto) 0.5 0-1.3 10 ^3/uL Eosinophils # (Auto) 0.4 0-0.8 10 ^3/uL Basophils # (Auto) 0.1 0-0.2 10 ^3/uL Nucleated Red Blood Cells 0.1 % Sodium Level 133 L 136-145 mmol/L Potassium Level 4.2 3.5-5.1 mmol/L Chloride Level 102 98-107 mmol/L Carbon Dioxide Level 20 20-31 mmol/L Anion Gap 11 5-15 Blood Urea Nitrogen 15 9-23 mg/dL Creatinine 0.85 0.550-1.02 mg/dL Glomerular Filtration Rate Calc 84 >90 mL/min BUN/Creatinine Ratio 17.6 10.0-20.0 Serum Glucose 403 *H 74-106 mg/dL Calcium Level 9.6 8.7-10.4 mg/dL Total Bilirubin 0.4 0.2-1.0 mg/dL Aspartate Amino Transferase (AST) 24 <34 U/L Alanine Aminotransferase (ALT) 29 7-40 U/L Alkaline Phosphatase 155 H 46-116 U/L B-Type Natriuretic Peptide 84.13 0-100 pg/mL Total Protein 7.5 5.7-8.2 g/dL Albumin 4.3 3.2-4.8 g/dL Assessment Probable non-cardiac chest pain Coronary artery disease status post PCI x 3 SUJEY, on DAPT (11/2024) Chronic compensated ischemic cardiomyopathy with LVEF of 25% Peripheral arterial disease status post TOLL RELIEF OPERATOR x 4 SUJEY (03/2025) Diabetes mellitus with associated hyperglycemia NSTEMI, likely type II secondary to above Hypertension Dyslipidemia Obesity Plan/Recommendation (Dr. Haile) Case discussed with Dr. Haile. We will continue conservative management at this time including GDMT for HFrEF as tolerated (SGLT2i, ARNI), high-intensity statin, dual antiplatelet therapy, and ranolazine. Midodrine is contraindicated with CHF, discontinued. Counseled on Mediterranean diet, weight loss and exercise. Continue follow-ups with Dr. Haile in the outpatient setting as scheduled. Consider GI work-up. There is no further cardiac work-up indicated at this time. Kindly call if in need to reconsult. Thank you for allowing us to participate in this patient's care. This medical document was created using an electronic medical record system with voice recognition software and computerized dictation system. Although this document has been carefully reviewed, there might still be some phonetic and typographical errors. Occasional wrong-word or ``sound-alike substitutions may have occurred due to the inherent limitations of voice recognition software. These areas are purely typographical due to imperfections of the software programs and do not reflect any compromise in the patient's medical care. Please read the chart carefully and recognize, using context, where these substitutions have occurred. Plan discussed with: Patient, Other NYHA 2 Physical activity limitations: Class3(Marked) ordinary Date of Service: Apr 02, 2025 Billing Provider: ELVIN MARIN Cardiology Common Codes: 38221-GPHHTMH INP/OBS CARE (High) MARTHA HAILE MD 04/02/25 1720: Family History: Diabetes mellitus G8 MOTHER FH: COPD (chronic obstructive pulmonary disease) G8 MOTHER FH: hepatic cirrhosis G8 MOTHER Hypertension G8 MOTHER Allergies: Coded Allergies: Ibuprofen (Unverified Allergy, Severe, anaphylaxis, 10/31/24) Metformin (Verified Allergy, Unknown, 04/01/25) Home Meds Active Scripts Midodrine HCl (Midodrine HCl) 10 Mg Tab, 10 MG PO TID for 30 Days, #90 TAB Prov:KAROLYN SALEH MD 01/13/25 Cephalexin (KEFLEX CAPSULE) 250 Mg Cp, 1 CAP PO QID for 7 Days, #28 CAP Prov:KAROLYN SALEH MD 01/13/25 Reported Medications Ranolazine (Ranolazine ER) 500 Mg Tab, 1 TAB PO BID PRN for 30 Days, #60 01/25/25 Omeprazole (Gnp Omeprazole) 20 Mg Tab, 1 TAB PO DAILY, #90 TAB 1 Refill 01/24/25 Pravastatin Sodium (PRAVACHOL TABLET) 20 Mg Tb, 1 TAB PO DAILY, #30 TAB 5 Refills 01/24/25 Aspirin (Aspir-81) 81 Mg Tab, 1 TAB PO DAILY, #30 TAB 5 Refills 01/24/25 Insulin Glargine (Lantus) 100 Unit/Ml Inj, 100 UNIT SC, INJ 01/11/25 Ticagrelor Base (BRILINTA) 90 Mg Tab, 90 MG PO, TAB 01/11/25 Escitalopram Oxalate (Lexapro) 10 Mg Tab, 1 TAB PO DAILY, #90 TAB 3 Refills 11/02/24 Sitagliptin Phosphate (Januvia) 50 Mg Tab, 1 TAB PO DAILY, #30 TAB 5 Refills 11/02/24 Plan/Recommendation agree with CV team, COMMISSION CLERK assessment and plan pt well known to me hx of severe ICM and chronic hypotension missed couple doses of brilinta resume dapt cont HF meds do not diurese, bnp is normal outpt fu Plan discussed with: Patient ELVIN MARIN LUANA Apr 02, 2025 10:32 MARTHA HAILE MD Apr 02, 2025 17:20
[2025-04-02] MEDS: HYDROcodone-ACET 10/325MG TAB PO ONE (12:03)
[2025-04-02 12:53] VITALS: BP 88/56; PULSE 83; PULSE 89; RESP 15; RESP 17; TEMP 98.2; O2SAT 97; O2SAT 98
[2025-04-02] MEDS: ONDANSETRON HCL 4 MG/2 ML VIAL IV PRN (14:09)
[2025-04-02] MEDS: SODIUM CHLORIDE 0.9% 1,000 ML IV ONE (14:30)
[2025-04-02] MEDS: HYDROcodone-ACET 5/325MG TAB PO PRN (14:31)
--- NOTE | 2025-04-02 16:47 | DVHSR ---
APPROVED REPORT EXAM: Two-dimensional and M-mode echocardiogram with Doppler and color Doppler. Blood Pressure: 141/79 mmHg INDICATION Chest Pain RISK FACTORS Height: 64, Weight: 199 DIMENSIONS LVDd4.4 (3.8-5.7cm)LA (2D)3.9 (1.9-4.0cm)Aortic Root3.1 (2.0-3.7cm) LVDs3.8 (2.5-4.0cm)LA (MM) (1.9-4.0cm)Aortic Cusp Exc1.9 (1.5-2.0cm) EF (%) 30.0 (55-70%)Rt. Atrium3.6 (1.9-4.0cm)Asc. Aorta cm Mitral Valve MitralMitral Stenosis E wave0.82m/sMV Mean GR.mmHg A wave0.44m/sMV Peak GR.mmHg E/A ratio1.92D MVAcm2 DECEL [id number] 1/2 [id number] IVRTmsDop MVA1.92cm2 Aortic Valve Aortic ValveAortic Stenosis V10.80m/Rissa Mean GR.4mmHg V21.37m/Rissa Peak GR.7mmHg LVOT Diameter2.3 (1.8-2.4cm)Doppler AVA2.42cm2 Pulmonic Valve V20.89m/s Other Information Technically limited study due to body habitus. Conclusion lvef 30 % by visual estimate dilateed LV severe LV dysfunction normal rv function normal atria no severe valve abnormalities noted
[2025-04-02 17:51] VITALS: BP 85/41; PULSE 65; RESP 15; TEMP 97.8; O2SAT 96
[2025-04-02] MEDS ORDERED: ATORVASTATIN 20 MG TAB PO SCH (22:00)
[2025-04-02] MEDS: ATORVASTATIN 20 MG TAB PO SCH (22:11)
[2025-04-02] MEDS: SACUBITRIL-VALSARTAN 24mg/26mg TAB PO SCH (22:33)
[2025-04-02 22:50] VITALS: BP 100/49; PULSE 89; RESP 17; TEMP 98.4; O2SAT 97
[2025-04-03 01:00] VITALS: BP 95/51; PULSE 80; RESP 16; TEMP 98.1; O2SAT 97
[2025-04-03 05:00] VITALS: BP 109/50; PULSE 90; RESP 18; TEMP 98.5; O2SAT 94
[2025-04-03 08:00] VITALS: PULSE 93
[2025-04-03 09:00] VITALS: BP 92/52; PULSE 93; RESP 16; TEMP 100.1; O2SAT 98
[2025-04-03 09:47] LABS: Chloride 103 mmol/L (98-107); Potassium 4.3 mmol/L (3.5-5.1)
[2025-04-03 09:48] LABS: Anion Gap 7 (5-15); Carbon Dioxide 25 mmol/L (20-31)
[2025-04-03 09:49] LABS: Calcium 10.2 mg/dL (8.7-10.4)
[2025-04-03 09:50] LABS: Sodium 135 mmol/L (136-145)
[2025-04-03 09:54] LABS: BUN/Creatinine Ratio 16.7 (10.0-20.0); Blood Urea Nitrogen 13 mg/dL (9-23); Glucose 216 mg/dL (74-106)
[2025-04-03] MEDS: EMPAGLIFLOZIN 10 MG TAB PO SCH (10:13)
--- NOTE | 2025-04-03 12:50 | DVHPN2 ---
Progress Note Date Seen: Apr 03, 2025 Medical Necessity Reason Pt with a Central, PICC or Fol: No Objective vital signs Vital Sign Date Time Temp Pulse Resp B/P (MAP) Pulse Ox O2 Delivery O2 Flow Rate FiO2 04/03/25 09:00 100.1 93 16 92/52 (65) 98 100.1 04/03/25 08:00 Room Air* 0 21 Total Intake and Output 04/02/25 04/02/25 04/03/25 15:00 23:00 07:00 Intake Total 200 ml 240 ml Output Total 200 ml Balance 0 ml 240 ml medications Current Medications Medications Dose Ordered Sig/Tori Route Start Time Stop Time Status Last Admin Dose Admin Aspirin 81 mg DAILY PO 04/02/25 10:00 04/03/25 10:13 81 MG Ranolazine 500 mg BID PO 04/02/25 10:00 04/03/25 10:13 500 MG Ticagrelor 90 mg BID PO 04/02/25 10:00 04/03/25 10:14 90 MG Diagnostic Test (Pha) 1 strip IQ4HR 04/02/25 04:00 04/03/25 11:45 1 STRIP Insulin Human Regular IQ4HR SC 04/02/25 04:00 04/03/25 12:08 4 UNITS Dextrose 50 ml UD PRN IV 04/02/25 03:30 Ondansetron HCl 4 mg Q4HP PRN IV 04/02/25 03:30 04/03/25 08:25 4 MG Acetaminophen 650 mg Q6HP PRN PO 04/02/25 03:30 Nitroglycerin 0.4 mg Q5MINP PRN SL 04/02/25 03:30 Morphine Sulfate 2 mg Q30M PRN IV 04/02/25 03:30 Atorvastatin Calcium 80 mg HS PO 04/02/25 22:00 04/02/25 22:11 80 MG Empaglifozin 10 mg DAILY PO 04/03/25 10:00 04/03/25 10:13 10 MG Sacubitril/ Valsartan 0.25 tab BID PO 04/02/25 22:00 04/03/25 10:13 0.25 TAB Acetaminophen/ Hydrocodone Bitart 1 tab Q4HPRN PRN PO 04/02/25 14:15 04/02/25 21:00 1 TAB Examination: GENERAL:Abnormal, HEENT:Abnormal, LUNGS:Abnormal, CVS:Abnormal, ABDOMEN:Abnormal laboratory and microbiology Laboratory Tests 04/03/25 09:21 04/01/25 22:38 Test 04/03/25 09:21 Range/Units Serum Glucose 216 H 74-106 mg/dL Problem List/Assessment/Plan Problem List/Assessment/Plan abd pain elevated troponin severe chf cad pad outpt fu normal bnp resume dapt resume home meds Plan discussed with: Patient Date of Service: Apr 03, 2025 Billing Provider: MARTHA HAILE MD Common Visit Codes: NOT BILLABLE MARTHA HAILE MD Apr 03, 2025 12:50
[2025-04-03 13:00] VITALS: BP 100/60; PULSE 78; RESP 18; TEMP 98.7; O2SAT 99
[2025-04-03] MEDS ORDERED: RANO500T3 PO (13:25)
[2025-04-03] MEDS ORDERED: SACU1TAB PO (13:25)
[2025-04-03] MEDS ORDERED: TICA90TA PO (13:25)
[2025-04-03 17:06] VITALS: BP 110/74; PULSE 98; RESP 18; TEMP 98; O2SAT 96
--- NOTE | 2025-04-04 09:53 | ECG ---
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
--- NOTE | 2025-04-05 14:53 | ECG ---
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
== END 2025-04-03 17:22 | disposition home or self-care (01) | DRG 203 ==
LOC: ER 22:27 → OVERFLOW 04-02 03:16 → TELE-WESTW 04-02 22:50
PROVIDERS: ADMIT Hospitalist; ATTEND Hospitalist
DX: M94.0 Chondrocostal junction syndrome [Tietze] (principal); I21.A1 Myocardial infarction type 2; I11.0 Hypertensive heart disease with heart failure; I95.9 Hypotension, unspecified; E11.51 Type 2 diabetes mellitus with diabetic peripheral angiopathy without gangrene; I50.22 Chronic systolic (congestive) heart failure; E11.65 Type 2 diabetes mellitus with hyperglycemia; E66.9 Obesity, unspecified; Z68.34 Body mass index [BMI] 34.0-34.9, adult; Z20.822 Contact with and (suspected) exposure to COVID-19; F41.9 Anxiety disorder, unspecified; N39.0 Urinary tract infection, site not specified; K80.20 Calculus of gallbladder without cholecystitis without obstruction; I25.5 Ischemic cardiomyopathy; I25.10 Atherosclerotic heart disease of native coronary artery without angina pectoris; E78.5 Hyperlipidemia, unspecified; Z98.61 Coronary angioplasty status; Z86.73 Personal history of transient ischemic attack (TIA), and cerebral infarction without residual deficits; Z88.8 Allergy status to other drugs, medicaments and biological substances; Z83.3 Family history of diabetes mellitus; Z82.5 Family history of asthma and other chronic lower respiratory diseases; Z82.49 Family history of ischemic heart disease and other diseases of the circulatory system
CPT/HCPCS: 36415; 71045; 74176; 80048; 80053; 81001; 81025; 82962; 83880; 84484; 85025; 87081; 87426; 87804; 93005; 93306; 96365; 96372; 96375; G0378; J1815; J2405

== ENCOUNTER 2025-05-16 02:14 | Emergency (ER) | payer MEDICAID ==
[~2025-05-16] VITALS: Ht 162.6 cm; Wt 96.3 kg
[~2025-05-16 02:14] MED LIST changes: -CEPH250C PO; -MID10T PO; -RANO500T3 PO; -TICA90TA PO
[2025-05-16] MEDS ORDERED: CIPR1SUS8 LEFT EAR (02:33)
[2025-05-16] MEDS ORDERED: ACET500T58 PO (02:33)
--- NOTE | 2025-05-16 02:33 | ED.PDOC ---
Eye-HPI HPI Comments 50 YEAR OLD FEMALE PRESENTS TO ER WITH COMPLAINTS OF LEFT SIDED EARACHE PAIN X 1 DAY. PATIENT STATES SHE WAS CLEANING HER LEFT EAR OUT WITH A Q-TIP YESTERDAY EVENING WHEN SHE DEVELOPED SUDDEN ONSET OF LEFT EARACHE PAIN, DECREASED HEARING TO LEFT EAR AND NOTICED BRIGHT RED BLOOD ON THE Q-TIP SHE WAS USING. SHE RATES HER CURRENT LEFT SIDED EARACHE PAIN A 7/10 WITH RADIATION TOWARDS LEFT SIDE OF FACE AND REPORTS SHE DID GO SWIMMING YESTERDAY. DENIES FEVER, N/V, SKIN CHANGES, HEADACHE OR ANY FURTHER SYMPTOMS/COMPLAINTS Chief Complaint: Earache Time Seen by MD: 02:18 Primary Care Provider: UNKNOWN Reviewed Notes: Nurses Notes, Medications, Allergies Allergies: Coded Allergies: Ibuprofen (Unverified Allergy, Severe, anaphylaxis, 10/31/24) Metformin (Unverified Allergy, Unknown, 04/01/25) Home Meds Active Scripts Acetaminophen (Acetaminophen) 500 Mg Tab, 500 MG PO Q4HPRN, #30 TAB 0 Refills Prov:MYLA JOHNSON 05/16/25 Ciprofloxacin-Dexamethasone (Ciprofloxacin/Dexamethaso 0.3-0.1 %) 1 Beth Beth, 4 DROP LEFT EAR BID for 7 Days, #1 BOTTLE 0 Refills Prov:MYLA JOHNSON 05/16/25 Reported Medications Omeprazole (Gnp Omeprazole) 20 Mg Tab, 1 TAB PO DAILY, #90 TAB 1 Refill 01/24/25 Pravastatin Sodium (PRAVACHOL TABLET) 20 Mg Tb, 1 TAB PO DAILY, #30 TAB 5 Refills 01/24/25 Aspirin (Aspir-81) 81 Mg Tab, 1 TAB PO DAILY, #30 TAB 5 Refills 01/24/25 Insulin Glargine (Lantus) 100 Unit/Ml Inj, 100 UNIT SC, INJ 01/11/25 Escitalopram Oxalate (Lexapro) 10 Mg Tab, 1 TAB PO DAILY, #90 TAB 3 Refills 11/02/24 Sitagliptin Phosphate (Januvia) 50 Mg Tab, 1 TAB PO DAILY, #30 TAB 5 Refills 11/02/24 Information Source: Patient Mode of Arrival: Ambulatory Past Medical History PAST MEDICAL HISTORY: Anxiety, CHF, DM, High Lipids, HTN Surgical History: BTL PAIN MANAGEMENT PHYSICIAN History: No Pertinent PAIN MANAGEMENT PHYSICIAN History Family History Family History: Reviewed,noncontributory to illness, Unknown Social History Smoker: Non-Smoker Alcohol: Denies ETOH Use Drugs: Denies Drug Use Lives In: Home Constitutional: denies: chills, diaphoresis, fatigue, fever, malaise, sweats, weakness, others EENTM: reports: others ( STATED IN HPI) Respiratory: denies: cough, hemoptysis, orthopnea, SOB at rest, shortness of breath, SOB with excertion, stridor, wheezing, others Cardiovascular: denies: chest pain, dizzy spells, diaphoresis, Dyspnea on exertion, edema, irregular heart beat, left arm pain, lightheadedness, palpitations, PND, syncope, others Gastrointestinal: denies: abdomen distended, abdominal pain, blood streaked bowels, constipated, diarrhea, dysphagia, difficulty swallowing, hematemesis, melena, nausea, poor appetite, poor fluid intake, rectal bleeding, rectal pain, vomiting, others Genitourinary: denies: abnormal vagina bleeding, burning, dyspareunia, dysuria, flank pain, frequency, hematuria, incontinence, pain, , vagina discharge, urgency, others Neurological: denies: dizziness, fainting, headache, left sided numbness, left sided weakness, numbness, paresthesia, pre-existing deficit, right sided numbness, right sided weakness, seizure, speech problems, tingling, tremors, weakness, others Musculoskeletal: denies: back pain, gout, joint pain, joint swelling, muscle pain, muscle stiffness, neck pain, others Integumetry: denies: bruises, change in color, change in hair/nails, dryness, laceration, lesions, lumps, rash, wounds, others Allergic/Immunocompromised: denies: Difficulty Healing, Frequent Infections, Hives, Itching, others Hematologic/Lymphatic: denies: anemia, blood clots, easy bleeding, easy bruising, swollen glands, others Endocrine: denies: excessive hunger, excessive sweating, excessive thirst, excessive urination, flushing, intolerance to cold, intolerance to heat, unexplained weight gain, unexplained weight loss, others Psychiatric: denies: anxiety, bipolar disorder, depression, hopeless, panic disorder, schizophrenia, sleepless, suicidal, others Physical Exam General Appearance: No Apparent Distress HEENT: PERRL/EOMI, Pharynx Normal, Other (MINIMAL YELLOW PURLENT DRAINAGE NOTED TO LEFT MIDDLE EAR CANAL, NO BLEEDING APPREICATED, SLIGHT DECREASED WHISPERED HEARING NOTED TO LEFT EAR, UNABLE TO VISUALIZE LEFT TM DUE TO PURULENT DRAINAGE. REMAINDER BILATERAL EAR EXAM- UNREMARKABLE) Neck: Full Range of Motion, Non-Tender, Normal Respiratory: Chest Non-Tender, Lungs Clear, No Accessory Muscle Use, No Respiratory Distress, Normal Breath Sounds Cardiovascular: No Murmur, No Gallop, Regular Rate/Rhythm Breast Exam: Deferred Gastrointestinal: NOT DONE Genitalia: Deferred Pelvic: Deferred Rectal: Deferred Extremities: Normal capillary refill, Normal range of motion Neurologic: Alert, litigation paralegal II-XII nml as Tested, No Motor Deficits, Normal Affect, Normal Mood, No Sensory Deficits Cerebellar Function: Normal Reflexes: Normal Skin: Dry, Normal Color, Warm Lymphatic: No Adenopathy Was a procedure done? Was a procedure done?: No Sedation Sedation?: No EENT DIFF Eye: N/A Ear: Abrasion, Cerumen Impaction, Foreign Body, Otitis Media X-Ray, Labs, Meds, VS Vital Signs Date Time Temp Pulse Resp B/P (MAP) Pulse Ox O2 Delivery O2 Flow Rate FiO2 05/16/25 02:19 98.1 84 18 104/66 96 98.1 Rocephin 1 g IM ordered Tylenol #3 1 tablet p.o. ordered Advised to keep ear canal dry and not stick any foreign body into ear canals Advised to f/u with PCP in 1-2 days Patients mother verbalized understanding and agreeable with current plan of care Advised to return to ER immediately if symptoms worsen Time of 1ST Reevaluation: 02:14 Reevaluation 1ST: N/A Patient Education/Counseling: Diagnosis, Treatment, Prognosis, Need For Follow Up Family Education/Counseling: No Family Present SEPSIS Sepsis Screen Date sepsis recognized/suspect: May 16, 2025 Time Sepsis recognized/suspect: 220 Recent Procedure: No On Antibiotic Therapy: No Respiratory Rate >20: No Heart Rate >90: No Temp<36 C (96.8 F) or >38.3 C: No SBP <90 or MAP <65 mmHG: No New Acute Mental Status Change: No Is the patient on CPAP, BIPAP,: No Vital Signs Date Time Temp Pulse Resp B/P (MAP) Pulse Ox O2 Delivery O2 Flow Rate FiO2 05/16/25 02:19 98.1 84 18 104/66 96 98.1 Departure 1 Departure Time of Disposition: 02:30 Impression: Primary Impression: Otitis externa of left ear Qualified Codes: H60.332 - Swimmer's ear, left ear Disposition: 01 HOME / SELF CARE / HOMELESS Condition: Stable e-Prescriptions Acetaminophen (Acetaminophen) 500 Mg Tab 500 MG PO Q4HPRN, #30 TAB 0 Refills Prov: MYLA JOHNSON 05/16/25 Ciprofloxacin-Dexamethasone (Ciprofloxacin/Dexamethaso 0.3-0.1 %) 1 Beth Beth 4 DROP LEFT EAR BID for 7 Days, #1 BOTTLE 0 Refills Prov: MYLA JOHNSON 05/16/25 Discharged With: Friend Critical Care Note Critical Care Time?: No Stability Stability form required: No Heart Score Heart Score: Heart Score Response (Comments) Value History N/A 0 EKG N/A 0 Age N/A 0 Risk Factors N/A 0 Troponin N/A 0 Total 0 MYLA JOHNSON May 16, 2025 02:33
[2025-05-16] MEDS: cefTRIAXone SOD 1,000 MG VL IM ONE (03:11)
[2025-05-16] MEDS: ACETAMINOPHEN/CODEINE#3 (300/30mg) TAB PO ONE (03:11)
[2025-05-16 03:18] VITALS: BP 97/68; PULSE 88; RESP 16; TEMP 98; O2SAT 97
== END 2025-05-16 03:49 | disposition home or self-care (01) ==
LOC: ER 02:14
DX: H60.92 Unspecified otitis externa, left ear (principal); I11.0 Hypertensive heart disease with heart failure; I50.9 Heart failure, unspecified; E11.9 Type 2 diabetes mellitus without complications; F41.9 Anxiety disorder, unspecified; Z79.82 Long term (current) use of aspirin; Z79.84 Long term (current) use of oral hypoglycemic drugs; Z79.899 Other long term (current) drug therapy; Z88.6 Allergy status to analgesic agent; Z98.51 Tubal ligation status
CPT/HCPCS: 96372; 99283; J0696